=== PATIENT | male | born 1980 | race Caucasian/White ===

== ENCOUNTER 2025-01-31 09:34 | Observation (INO) | payer OTHER, BC, SELFPAY ==
[2025-01-31] VITALS (8 sets, daily range): BP systolic 115–156; BP diastolic 06–106; PULSE 62–76; RESP 13–17; TEMP 36.8–37.1; O2SAT 95–100; BMI 22.2; BMI 21.9
--- NOTE | 2025-01-31 10:28 | RAD_ITS ---
PROCEDURE: CHEST PA AND LATERAL 01/31/2025 REASON FOR EXAM: CHEST PAIN TECHNIQUE: Three-view CHEST PA AND LATERAL COMPARISON: None. RAD/Chest PA and Lateral IMPRESSION: Mild thoracic spine degenerative changes are noted. Biapical pleural-parenchymal scarring is noted. Lungs are moderately hyperinflated. No evidence of pulmonary edema. No acute pneumonic process is seen. No pleural effusion or pneumothorax is noted. The cardiomediastinal silhouette is within the normal range. No evidence of acute cardiopulmonary disease. Reading Location: [place] [address]
--- NOTE | 2025-01-31 10:28 | RAD_ITS ---
PROCEDURE: CHEST PA AND LATERAL 01/31/2025 REASON FOR EXAM: CHEST PAIN TECHNIQUE: Three-view CHEST PA AND LATERAL COMPARISON: None. RAD/Chest PA and Lateral IMPRESSION: Mild thoracic spine degenerative changes are noted. Biapical pleural-parenchymal scarring is noted. Lungs are moderately hyperinflated. No evidence of pulmonary edema. No acute pneumonic process is seen. No pleural effusion or pneumothorax is noted. The cardiomediastinal silhouette is within the normal range. No evidence of acute cardiopulmonary disease. Reading Location: [place] [address]
--- NOTE | 2025-01-31 10:28 | EKG12_ITS ---
Test Reason : CP Blood Pressure : */* mmHG Vent. Rate : 78 BPM Atrial Rate : 78 BPM P-R Int : 130 ms QRS Dur : 96 ms QT Int : 374 ms P-R-T Axes : 76 59 65 degrees QTcB Int : 426 ms Normal sinus rhythm Normal ECG Confirmed by LENIN PEREZ, AIDEE ([id number]), international editorial producer MARLON ROONEY ([id number]) on 02/04/2025 8:18:21 AM Referred By: YARELI Confirmed By: AIDEE PHELPS MD
--- NOTE | 2025-01-31 10:28 | EKG12_ITS ---
Test Reason : CP Blood Pressure : */* mmHG Vent. Rate : 78 BPM Atrial Rate : 78 BPM P-R Int : 130 ms QRS Dur : 96 ms QT Int : 374 ms P-R-T Axes : 76 59 65 degrees QTcB Int : 426 ms Normal sinus rhythm Normal ECG Confirmed by LENIN PEREZ, AIDEE ([id number]), avid editor MARLON ROONEY ([id number]) on 02/04/2025 8:18:21 AM Referred By: YARELI Confirmed By: AIDEE PHELPS MD
--- NOTE | 2025-01-31 10:57 | ED.VIS.CHEST ---
HPI History of Present Illness Chief Complaint: Chest Pain Narrative Narrative: Chief complaint and HPI: Chest pain. 44-year-old male with no significant past medical history although has not seen a physician in years presents for evaluation of chest pain. 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 Associated symptom was nausea. Patient states that the arm pain/numbness has improved however he still endorses some mild chest pressure. He has a family history of IN with his dad having an IN in his 50s. Tobacco abuser. Denies any shortness of breath, bilateral lower extremity swelling or pain. Review of systems: See HPI Medications: As listed on the chart Allergies: As listed on the chart PFSH: Per chart Vital signs: As listed on the chart. Reviewed. Physical exam: Gen: A&O x3, NAD Head: Normocephalic, atraumatic Eyes: No sclera icterus, conjunctiva clear ENT: Moist mucous membranes Neck: Trachea midline, No JVD CV: RRR, no murmurs, no peripheral edema, radial pulses +2 bilaterally Resp: Lungs CTA BL, no w/r/c GI: Abd soft, non-distended, non-tender, no r/r/g Musc: Full ROM, no deformity Skin: Warm, dry Neuro: Alert, oriented, grossly intact, sensation intact Psych: Cooperative, appropriate mood and affect [facility] Medical History (Updated 01/31/25 @ 09:49 by Mackenzie Anton) History of ankle fracture Home Medications ?Medication ?Instructions ?Recorded ?Last Taken ?Type NK 01/31/25 Unknown History Allergy/AdvReac Type Severity Reaction Status Date / Time Penicillins Allergy Rash Verified 01/31/25 09:36 Social History Smoking Status: Current every day smoker tobacco type: cigarettes EXAM Physical Exam Const Vital Signs: 01/31/25 09:35 01/31/25 09:50 01/31/25 10:34 Temperature 98.6 F Temperature Source Oral Pulse Rate 76 71 Respiratory Rate 16 14 Respiratory Effort Normal Non-Labored Blood Pressure 156/92 H 140/94 H Blood Pressure Mean 113 109 Pulse Ox 100 95 Oxygen Delivery Method Room Air Room Air 01/31/25 11:00 01/31/25 12:00 01/31/25 13:00 Temperature Temperature Source Pulse Rate 63 62 75 Respiratory Rate 13 Respiratory Effort Blood Pressure 140/94 H 148/06 H 148/106 H Blood Pressure Mean 109 53 120 Pulse Ox Oxygen Delivery Method MDM MDM MDM Narrative Medical decision making narrative: 44-year-old male with no significant past medical history although has not seen a physician in years presents for evaluation of chest pain. Differential diagnosis includes but is not limited to ACS, hypertension urgency, hypertension emergency, suspect less likely CHF. Aspirin ordered for symptoms. Cardiac workup ordered. EKG and chest x-ray reviewed see below. CBC without leukocytosis or anemia. Coagulation panel unremarkable. BMP unremarkable. BNP unremarkable. Troponin x 2 unremarkable. On reevaluation, patient states his chest pain has improved. Patient's heart score is a 4 which places him in the moderate category for ACS. Given his family history as well as his presentation, I do think feel that the patient would benefit from admission for inpatient stress test. Patient was updated about the results and the plan. He confirmed understanding. Hospitalist accept admission. EKG: Interpreted by me/EM physician: EKG shows normal sinus rhythm without any acute ischemic changes. Heart rate 78 Diagnostic: Interpreted by me/EM physician: Chest x-ray without pneumonia, effusion, cardiomegaly, pneumothorax. Radiology in agreement. Impression: 1. Chest pain 2. Hypertension 3. Tobacco use Lab Data Labs: Laboratory Results - last 24 hr 01/31/25 01/31/25 09:47 12:35 WBC 8.2 RBC 4.95 Hgb 15.3 Hct 44.4 MCV 89.7 MCH 30.9 MCHC 34.5 RDW Std Deviation 45.1 H RDW Coeff of Brandi 13.7 Plt Count 230 MPV 10.4 Immature Gran % (Auto) 0.100 Neut % (Auto) 50.4 Lymph % (Auto) 36.5 [place] % (Auto) 9.4 Eos % (Auto) 2.7 Baso % (Auto) 0.9 Absolute Neuts (auto) 4.2 Absolute Lymphs (auto) 3.00 Nucleated RBC % 0 PT 12.5 INR 0.9 APTT 26.9 Sodium 140 Potassium 3.7 Chloride 103 Carbon Dioxide 23.8 Anion Gap 13 BUN 7 Creatinine 0.82 Estim Creat Clear Calc 116.41 Est GFR (MDRD) Non-Af 110 BUN/Creatinine Ratio 8.8 L Glucose 76 Calcium 9.0 Troponin T High Sens 10 Troponin T Hi Sens 2 Hr < 6 NT pro BNP II < 36 Radiography Diagnostic Testing: Clinical Impression(s) from Imaging Studies Chest X-Ray 01/31/25 10:28 IMPRESSION: Mild thoracic spine degenerative changes are noted. Biapical pleural-parenchymal scarring is noted. Lungs are moderately hyperinflated. No evidence of pulmonary edema. No acute pneumonic process is seen. No pleural effusion or pneumothorax is noted. The cardiomediastinal silhouette is within the normal range. No evidence of acute cardiopulmonary disease. Reading Location: [place] [address] Discharge Plan Triage Chief Complaint: Chest Pain ED Provider: Mundo Lemus Dx/Rx/DC Orders Prescriptions: No Action NK Primary Care Provider: Care Physician,No Primary Referrals: Care Physician,No Primary [Primary Care Provider] - Print Language: Guamanian
[2025-01-31 11:03] LABS: Hematocrit 44.4 % (40-54); Hemoglobin 15.3 g/dL (13.0-16.5); Immature Granulocytes Count 0.010 X10^3/uL (0.0-0.0); Mean Corp Hgb Conc 34.5 g/dL (32-36); Mean Corpuscular Volume 89.7 fL (80-94); Mean Platelet Vol. 10.4 fl (6.2-12.0); NRBC Flagged by Analyzer 0 % (0-5); Platelet Count 230 K/mm3 (150-450); RBC Distribution Width CV 13.7 % (11.6-14.6); RBC Distribution Width SD 45.1 fl (35.1-43.9); Red Blood Count 4.95 M/mm3 (4.6-6.2); White Blood Count 8.2 K/mm3 (4.4-11.0)
[2025-01-31 11:05] LABS: Prothrombin Time (Protime)PT. 12.5 SECONDS (11.7-14.9)
[2025-01-31 11:06] LABS: Partial Thromboplast Time 26.9 Seconds (24.1-36.2)
[2025-01-31 11:28] LABS: Anion Gap 13 (5-15); BUN 7 mg/dL (4-19); BUN/Creat Ratio 8.8 RATIO (10-20); Calcium,Total 9.0 mg/dL (7.6-11.0); Carbon Dioxide 23.8 mmol/L (21.0-32.0); Chloride 103 mmol/L (98-108); Estimated Creatinine Clearance 116.41 ml/min (50-250); Glucose 76 mg/dL (70-99); Potassium 3.7 mmol/L (3.3-5.1)
[2025-01-31 11:31] LABS: Pro- Brain NATRIURETIC PEPTIDE < 36 pg/mL (<=450); Troponin T High Sensitivity 10 ng/L (<=22)
--- NOTE | 2025-01-31 13:00 | CM.ED ---
Social work Reason for referral: no PCP Referral source: case find This SW entered patient's room, introducing self and role at [facility]. Patient welcomed SW visit and confirmed lacking a PCP due to never getting sick. Patient accepted SW resources of [facility] Provider Directory and Myah Meza information. Patient denied need for further resources at this time. Didi Merchant, FLY FRAME TENDER, VOCATIONAL TEACHER
--- NOTE | 2025-01-31 13:00 | CM.ED ---
Social work Reason for referral: no PCP Referral source: case find This SW entered patient's room, introducing self and role at [facility]. Patient welcomed SW visit and confirmed lacking a PCP due to never getting sick. Patient accepted SW resources of [facility] Provider Directory and Myah Meza information. Patient denied need for further resources at this time. Didi Merchant, PRACTICAL NURSE CLINICAL COORDINATOR, CANCER PROGRAM CONSULTANT
[2025-01-31 13:29] LABS: Troponin T High Sens 2 HR < 6 ng/L (<=22)
--- NOTE | 2025-01-31 14:14 | HP.PCM.HOS_ITS ---
HPI - General General Date of Admission: 01/31/25 Date of Service: 01/31/25 Chief Complaint: Chest pain HPI Narrative JANIYA BETANCUR, is a 44 M who presented to [facility] ED on 01/31/2025 with chest pain. Patient has minimal past medical history, takes no medications at home. However, notes that he has not seen a doctor in years. He has had chest pain off and on for the past few weeks. Pain is in left chest with intermittent radiation to the left arm. Does seem to worsen with exertion and get better with rest. 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 Had associated nausea with this. Given the symptoms, he came in for further evaluation. He is a current smoker, smokes 1 to 1.5 packs of cigarettes per day. 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 Does have family history of heart disease. Dad had an PA in his 50s. Mom has had stenting done in her 60s and 70s. In the ED he was hypertensive to the 150s systolic but otherwise in normal sinus rhythm and stable on room air at rest. CBC and BMP were benign. Troponins negative x 2. BNP normal. EKG with normal sinus rhythm with no ST changes. Chest x-ray unremarkable. However, given patient's reported history of the pain and family history, hospitalist was contacted for admission. I saw the patient at bedside in the ED. Patient was sitting back comfortably in bed, conversing normally, in no acute distress. He reported mild left-sided pain currently, improved from earlier today. He was given 1 dose of aspirin 325 mg in the ED but was not given any nitro. He denies any numbness/tingling down the left arm currently. Denies any other acute concerns at this time. Will be admitted for further management. [facility] Medical History (Updated 01/31/25 @ 19:[address] Jacky Montelongo DO) History of ankle fracture Home Medications ?Medication ?Instructions ?Recorded ?Last Taken ?Type NK 01/31/25 Unknown History Allergy/AdvReac Type Severity Reaction Status Date / Time Penicillins Allergy Rash Verified 01/31/25 09:36 Social History (Updated 01/31/25 @ 15:57 by Eduarda Bowers) Smoking Status: Current every day smoker tobacco type: cigarettes ROS Constitutional Constitutional: Denies chills, fatigue, fever(s) or weakness Eyes Eyes: Denies change in vision Cardiovascular Cardiovascular: Reports chest pain; Denies dyspnea on exertion, edema, lightheadedness or rapid heart rate Respiratory/Chest Respiratory/Chest: Denies cough, shortness of breath at rest, shortness of breath with exertion or wheezing Gastrointestinal Gastrointestinal: Denies abdominal pain Musculoskeletal Musculoskeletal: Denies arthralgias or myalgias Neurologic Neurologic: Denies dizziness, focal weakness or headache(s) Vital Signs Vital Signs Vital Signs: 01/31/25 09:35 01/31/25 09:50 01/31/25 10:34 Temperature 98.6 F Temperature Source Oral Pulse Rate 76 71 Respiratory Rate 16 14 Respiratory Effort Normal Non-Labored Blood Pressure 156/92 H 140/94 H Blood Pressure Mean 113 109 Pulse Ox 100 95 Oxygen Delivery Method Room Air Room Air 01/31/25 11:00 01/31/25 12:00 01/31/25 13:00 Temperature Temperature Source Pulse Rate 63 62 75 Respiratory Rate 13 Respiratory Effort Blood Pressure 140/94 H 148/06 H 148/106 H Blood Pressure Mean 109 53 120 Pulse Ox Oxygen Delivery Method Weight Weight: 72.348 kg Body Mass Index (BMI) 22.2 Physical Exam Const alert, oriented x3, no apparent distress and average body habitus Constitutional Narrative: Pleasant middle-age male, sitting back comfortably in bed, conversing normally, in no acute distress. General Appearance: cooperative and comfortable HEENT normocephalic, head/scalp atraumatic, hearing grossly normal bilaterally, nasal mucous membranes and turbinates normal and moist oral mucous membranes Eyes PERRL, EOMs intact bilaterally and conjunctivae normal Neck full ROM Chest inspection of chest normal Resp normal respiratory effort, normal air movement, no use of accessory muscles and clear to auscultation bilaterally Cardio regular rate, regular rhythm, no murmurs and peripheral pulses 2+ throughout GI normal to inspection, nondistended, normoactive bowel sounds, soft to palpation, non-tender and non-distended Back/Spine normal ROM Extremity normal to inspection, full ROM and no pedal edema Skin no rashes or lesions noted Psych mental status grossly normal Results Lab / Micro Data 01/31/25 09:47 01/31/25 09:47 Labs: Laboratory Results - last 24 hr 01/31/25 09:47: WBC 8.2, RBC 4.95, Hgb 15.3, Hct 44.4, MCV 89.7, MCH 30.9, MCHC 34.5, RDW Std Deviation 45.1 H, RDW Coeff of Brandi 13.7, Plt Count 230, MPV 10.4, Immature Gran % (Auto) 0.100, Neut % (Auto) 50.4, Lymph % (Auto) 36.5, [place] % (Auto) 9.4, Eos % (Auto) 2.7, Baso % (Auto) 0.9, Absolute Neuts (auto) 4.2, Absolute Lymphs (auto) 3.00, Nucleated RBC % 0, PT 12.5, INR 0.9, APTT 26.9, Sodium 140, Potassium 3.7, Chloride 103, Carbon Dioxide 23.8, Anion Gap 13, BUN 7, Creatinine 0.82, Estim Creat Clear Calc 116.41, Est GFR (MDRD) Non-Af 110, B UN/Creatinine Ratio 8.8 L, Glucose 76, Calcium 9.0, Troponin T High Sens 10, NT pro BNP II < 36 01/31/25 12:35: Troponin T Hi Sens 2 Hr < 6 Imaging Radiology Impression Chest X-Ray 01/31/25 10:28 IMPRESSION: Mild thoracic spine degenerative changes are noted. Biapical pleural-parenchymal scarring is noted. Lungs are moderately hyperinflated. No evidence of pulmonary edema. No acute pneumonic process is seen. No pleural effusion or pneumothorax is noted. The cardiomediastinal silhouette is within the normal range. No evidence of acute cardiopulmonary disease. Reading Location: [facility] Assessment & Plan Assessment/Plan (1) Chest pain: PLAN: Plan Patient is a 44-year-old male who presented to [facility] ED on 01/31/2025 with chest pain. 1. Chest pain, ACS rule out ? Admit under observation status to PCU. Presented with chest pain with radiation down left arm and into left neck. Intermittent chest pain for the past 2 weeks. Workup in ED negative including troponins negative x 2, EKG with normal sinus rhythm and no ST changes, BNP normal, chest x-ray normal. However, current tobacco user as below and strong family history of heart disease. Nuclear stress test and echocardiogram ordered. Lipid profile, A1c and TSH ordered. Continue cardiac telemetry. 2. Tobacco dependence ? Smokes 1 to 1.5 packs of cigarettes daily. Nicotine patch ordered per patient request. Discussed cessation on discharge. 3. Elevated BP readings ? Hypertensive to the 150s over 100s in the ED. Suspect patient has essential hypertension that has been undiagnosed as he does not follow with doctors regularly. Will initiate amlodipine 5 mg daily for now, though suspect he may need switched to beta-xi and/or ALF inhibitor pending cardiac workup as above. Monitor BMP. DVT prophylaxis: Lovenox CODE STATUS: Full code, verified Expected disposition: Home, 1 to 2 days Total clinical time spent by myself addressing the patient's medical issues, reviewing all the data, and collaborating with patient's care team: 75 minutes. Charges/Coding Visit Charges Inpatient E&M: 96216 Init Hosp L3
[2025-01-31 18:19] LABS: Troponin T High Sensitivity < 6 ng/L (<=22)
--- OUTSIDE RECORDS SUMMARY | 2025-01-31 18:31 | XMS RPT_ITS | CCD ---
Author Organization [facility] Care Team Providers Care Traffic Analysis Technician Name Role Phone Care Physician, No Primary Primary Care Provider Unavailable Dr. Mundo Lemus DO Emergency Provider Dr. Jacky Montelongo DO Admit Provider Dr. Jacky Montelongo DO Attending Provider Allergies Allergy Classification Reported Allergen(s) Allergy Type Date of Onset Reaction(s) Facility (1 source) Penicillins Allergy to substance 01-31-[address] [facility] Medications Current Medications Medication Drug Class(es) Dates Sig (Normalized) Sig (Original) [place] (Nk) (1 source) Start: 01-31-2025 [place] (Nk) A ctive January 31, 2025 12:00am Completed/Discontinued Medications Medication Drug Class(es) Dates Sig (Normalized) Sig (Original) cyclobenzaprine hydrochloride 10 mg oral tablet (1 source) Muscle Relaxant Start: 05-21-2016 End: 01-31-2025 take 1 tablet by mouth three times daily as needed for muscle spasms Cyclobenzaprine 10 MG tablet Discontinued 10 mg PO THREE TIMES A DAY as needed for Muscle Spasm 20 May 21, 2016 1:00am January 31, 2025 9:50am naproxen 500 mg oral tablet (1 source) Nonsteroidal Anti-inflammatory Drug Start: 05-21-2016 End: 01-31-2025 take 1 tablet by mouth twice daily as needed Naproxen 500 MG tablet Discontinued 500 mg PO TWICE DAILY NEEDED May 21, 2016 1:00am January 31, 2025 9:50am Results Test Name Value Interpretation Reference Range Facility Absolute lymphocyte countOrd ered By: Mundo Lemus on 01-31-2025 Lymphocytes Auto (Unsp spec) [#/Vol] 3.00 10*3/uL 0.83-4.51 [facility] Absolute neutrophil countOrd ered By: Mundo Lemus on 01-31-2025 Neutrophils (Bld) [#/Vol] 4.2 10*3/uL 2.0-7.7 [facility] Activated partial thrombopla stin time (aPTT) in platelet poor plasma by coagulation aOrdered By: Mundo Lemus on 01-31-2025 aPTT Coag (PPP) [Time] 26.9 s 24.1-36.2 [facility] Anion gap in Serum or Plasma Ordered By: Mundo Lemus on 01-31-2025 Anion gap [Moles/Vol] 13 mmol/L 5-15 [facility] Automated lymphocyte count a s percentage of total leukocytesOrdered By: Mundo Lemus on 01-31-2025 Lymphocytes/100 WBC Auto (Unsp spec) 36.5 % 19-41 [facility] BUN/creatinine ratioOrdered By: Mundo Lemus on 01-31-2025 Urea nitrogen/Creatinine [Mass ratio] 8.8 mg/mg Low 10-20 [facility] Basophil percentageOrdered B y: Mundo Lemus on 01-31-2025 Basophils/100 WBC (Bld) 0.9 % 0-1 [facility] Carbon dioxide, total [Moles /volume] in Central venous bloodOrdered By: Mundo Lemus on 01-31-2025 CO2 [Moles/Vol] 23.8 mmol/L 21.0-32.0 [facility] Chloride assayOrdered By: Eric Lemus on 01-31-2025 Chloride [Moles/Vol] 103 mmol/L 98-108 [facility] Eosinophil percentageOrdered By: Mundo Lemus on 01-31-2025 Eosinophils/100 WBC (Bld) 2.7 % 0-5 [facility] Erythrocyte distribution wid th ratioOrdered By: Mundo Lemus on 01-31-2025 Erythrocyte distribution width (RBC) [Ratio] 13.7 % 11.6-14.6 [facility] Erythrocyte distribution wid th standard deviationOrdered By: Mundodonell Farfan on 01-31-2025 Erythrocyte distribution width (RBC) [Ratio] 45.1 fl High 35.1-43.9 [facility] Glomerular filtration rate ( GFR) estimation/1.73 sq m using serum, plasma, or whole bOrdered By: Mundodonell Lemus on 01-31-2025 GFR/1.73 sq M.predicted among non-blacks MDRD (S/P/Bld) [Vol rate/Area] 110 mL/min/{1.73_m2} >60 [facility] Comment on above: mL/min/1.73m2 CKD-EP I Creatinine Equation (2020) Hematocrit Auto (Bld) [Volum e fraction]Ordered By: Mundodonell Lemus on 01-31-2025 Hematocrit (Bld) [Volume fraction] 44.4 % 40-54 [facility] Hemoglobin measurementOrdere d By: Mundo Lemus on 01-31-2025 Hemoglobin (Bld) [Mass/Vol] 15.3 g/dL 13.0-16.5 [facility] Immature granulocytes/100 WB C Auto (Bld)Ordered By: [place] Mariah on 01-31-2025 Immature granulocytes/100 WBC (Bld) 0.100 % 0.0-0.9 [facility] Comment on above: IG% - Immature Granu locytes (promyelocytes, myelocytes and metamyelocytes) > 1% indicates that a LEFT SHIFT is Present. International normalized rat io (INR) calculationOrdered By: Mundodonell Lemus on 01-31-2025 INR Coag (Bld) [Relative time] 0.9 {INR} [facility] MCV (mean corpuscular volume ) determinationOrdered By: Mundo Mariah on 01-31-2025 MCV (RBC) [Entitic vol] 89.7 fL 80-94 [facility] Mean corpuscular hemoglobin (MCH) determinationOrdered By: [facility] 01-31-2025 MCH (RBC) [Entitic mass] 30.9 pg 27.0-32.0 [facility] Mean corpuscular hemoglobin concentration (MCHC) determinationOrdered By: Mundo Lemus on 01-31-2025 MCHC (RBC) [Mass/Vol] 34.5 g/dL 32-36 [facility] Mean platelet volume determi nationOrdered By: Mundo Lemus on 01-31-2025 Platelet mean volume (Bld) [Entitic vol] 10.4 fL 6.2-12.0 [facility] Monocyte percentageOrdered B y: Mundo Lemus on 01-31-2025 Monocytes/100 WBC (Bld) 9.4 % 0-10 [facility] Natriuretic peptide.B prohor janice N-Terminal [Mass/volume] in Serum or PlasmaOrdered By: Mundo Lemus on 01-31-2025 Natriuretic peptide.B prohormone N-Terminal [Mass/Vol] < 36 pg/mL <450 [facility] Comment on above: Heart Failure Unlike ly: < 300 pg/mLHeart Failure Likely< 50 Years: > 450 pg/mL50-75 Years: > 900 pg/mL>75 Years: > 1800 pg/mL Neutrophil percentageOrdered By: Mundo Lemus on 01-31-2025 Neutrophils/100 WBC (Bld) 50.4 % 47-70 [facility] Nucleated red blood cell per centageOrdered By: Mundo Lemus on 01-31-2025 Nucleated RBC/100 WBC (Bld) [Ratio] 0 % 0-5 [facility] Platelet countOrdered By: Eric Lemus on 01-31-2025 Platelets (Bld) [#/Vol] 230 10*3/uL 150-450 [facility] Potassium measurement (mass/ volume)Ordered By: Mundo Lemus on 01-31-2025 Potassium (Unsp spec) [Mass/Vol] 3.7 mmol/L 3.3-5.1 [facility] Prothrombin timeOrdered By: Mundo Lemus on 01-31-2025 PT Coag (PPP) [Time] 12.5 s 11.7-14.9 [facility] RBC Auto (Bld) [#/Vol]Ordere d By: Mundo Lemus on 01-31-2025 RBC (Bld) [#/Vol] 4.95 10*6/uL 4.6-6.2 [facility] Serum creatinine measurement (mass/volume)Ordered By: Mundo Lemus on 01-31-2025 Creatinine [Mass/Vol] 0.82 mg/dL 0.70-1.20 [facility] Serum glucose measurement (m ass/volume)Ordered By: Mundo Lemus on 01-31-2025 Glucose [Mass/Vol] 76 mg/dL 70-99 [facility] Serum or plasma calcium gómez urement (mass/volume)Ordered By: Mundo Farfan on 01-31-2025 Calcium [Mass/Vol] 9.0 mg/dL 7.6-11.0 [facility] Serum or plasma urea nitroge n measurement (mass/volume)Ordered By: Mundo Lemus on 01-31-2025 Urea nitrogen [Mass/Vol] 7 mg/dL 4-19 [facility] Sodium levelOrdered By: Dom Lemus on 01-31-2025 Sodium [Moles/Vol] 140 mmol/L 133-145 [facility] Troponin T.cardiac [Mass/vol ume] in Serum or Plasma by High sensitivity methodOrdered By: Mundo Lemus on 01-31-2025 Troponin T.cardiac High sensitivity method [Mass/Vol] < 6 ng/L <22 [facility] Troponin T.cardiac High sensitivity method [Mass/Vol] 10 ng/L <22 [facility] White blood cell (WBC) count Ordered By: Mundo Lemus on 01-31-2025 WBC (Bld) [#/Vol] 8.2 10*3/uL 4.4-11.0 [facility] CNOVon 07-24-2019 CNOV Office Visit ([facility]) ---- BETANCURJANIYA ([id number]) 1980 M Date Time Provider Department 07/24/19 9:00 AM JUDITH MEDINA) [facility] During your visit today, we recorded the following information about you: Temperature Pulse Respiration Blood pressure 97.9 degrees 81/minute 16/minute 138/82 Weight 77.6 kg Judith Medina PA-C 07/24/2019 11:15 AM Signed Subjective HPI Patient presents with cough and right rib pain. He certain coughing for about a month and then the past week his right posterior rib area has been bothering him when he coughs or moves. Denies shortness of breath. His cough is nonproductive. No fevers or chills. No body aches. He has a smoker about a half a pack a day over the past 20 years. Denies asthma or COPD. No history of PE or DVT. No leg pain or swelling. No recent travel or surgeries. Review of Systems Constitutional: Negative. HENT: Negative. Eyes: Negative. Respiratory: Positive for cough. Negative for hemoptysis, sputum production and shortness of breath. Cardiovascular: Negative. Gastrointestinal: Negative. Genitourinary: Negative. Musculoskeletal: Positive for back pain. Skin: Negative. All other systems reviewed and are negative. PAST MEDICAL HISTORY Diagnosis Date - NEGATIVE MEDICAL HISTORY Current Outpatient Medications Medication Sig Dispense Refill - predniSONE (DELTASONE) 20 mg tablet Take 2 tablets by mouth once daily for 5 days. 10 tablet 0 - benzonatate (TESSALON PERLES) 100 mg capsule Take 2 capsules by mouth three times daily as needed. 30 capsule 0 - ustekinumab (STELARA SUBCUTANEOUS) Inject subcutaneously. - HYDROCODONE-ACETAMI NOPHEN 5 MG-500 MG TAB Take one(1) tablet every four(4) to six(6) hours as needed for pain. (Patient not taking: No more than 4000 mg of acetaminophen should be given per day (FROM ALL SOURCES) ) 30 0 No current facility-administer ed medications for this visit. PAST SURGICAL HISTORY Procedure Laterality Date - NONE FAMILY HISTORY Problem Relation Age of Onset - other (bronchitis [Other]) Mother - Heart Father September 2003 of [place] Social History Tobacco Use - Smoking status: Current Every Day Smoker Packs/day: 0.50 Years: 10.00 Pack years: 5.00 Types: Cigarettes - Smokeless tobacco: Never Used Substance Use Topics - Alcohol use: Yes Comment: Weekends - Drug use: No BP 138/82 Pulse 81 Temp 36.6 ?C (97.9 ?F) (Left Tympanic) Resp 16 Wt 77.6 kg (171 lb) SpO2 99% Objective Physical Exam Constitutional: He is well-developed, well-nourished, and in no distress. HENT: Head: Normocephalic and atraumatic. Right Ear: Tympanic membrane, external ear and ear canal normal. Left Ear: External ear and ear canal normal. Nose: Nose normal. Mouth/Throat: Uvula is midline, oropharynx is clear and moist and mucous membranes are normal. Cardiovascular: Normal rate, regular rhythm and normal heart sounds. Pulmonary/Chest: Effort normal and breath sounds normal. Mild tenderness in the right posterior ribs. No rash. No swelling or bruising. Neurological: He is alert. Skin: Skin is warm and dry. No rash noted. Nursing note and vitals reviewed. ASSESSMENT/PLAN: 1. Rib pain - ICD9: 786.50, ICD10: R07.81 (primary diagnosis) - XR RIBS/CHEST 3V AP RIB/OBLS/CXR RT 2. Bronchitis - ICD9: 490, ICD10: J40 Patient's chest x-ray is negative. I feel he does have bronchitis likely with some pleurisy. Given prednisone and Tessalon. Discussed if not better over the next 1-2 weeks follow-up with PCP. Judith Medina PA-C Referring Provider: SELF [200] Allergies As of Date: 07/24/2019 Noted Allergy Reaction ASA (SALICYLATES) 01/17/2007 PENICILLINS 01/26/2016 4 - Hives Date Reviewed: 07/24/2019 Reviewed by: Nemo Marcano Ma - Fully Assessed Reason for Visit: URI [115] Cmt: x 1 month with RIGHT side rib area pain x 1 week with intermittent SOB Primary Visit Diagnosis:Rib pain [R07.81] Other Visit Diagnosis:Bronchiti s [J40] Order(s):XR RIBS/CHEST 3V AP RIB/OBLS/CXR RT [[id number]] Order #: [id number] FUTURE predniSONE (DELTASONE) 20 mg tabletTake 2 tablets by mouth once daily for 5 days.Disp: 10 tabletRfl: 0 benzonatate (TESSALON PERLES) 100 mg capsuleTake 2 capsules by mouth three times daily as needed.Disp: 30 capsuleRfl: 0 Prescriptions as of 07/24/2019 Sig: PREDNISONE 20 MG TABLET Take 2 tablets by mouth once * BENZONATATE 100 MG CAPSULE Take 2 capsules by mouth thre* STELARA SUBCUTANEOUS Inject subcutaneously. HYDROCODONE 5 MG-ACETAMINOPHE* Take one(1) tablet every four* Patient not taking: No more than 4000 mg of aceta* Problem List As Of Date 07/24/2019 Noted Resolved LUMBAGO [M54.5] 01/17/2007 Prescriptions ordered this encounter Disp Refills Start End PREDNISONE 20 MG TABLET 10 t* 0 07/24/2019 07/29/2019 Route: ORAL Sig: Take 2 tablets by mouth once daily for 5 days. BENZONATATE 100 MG CAPSULE 30 c* 0 07/24/2019 Route: ORAL Sig: Take 2 capsules by mouth three times daily as needed. Letter Text Encounter Status:Closed by JUDITH MEDINA PA-C on 07/24/19 Normal [facility] PROGRESSon 07-24-2019 PROGRESS HNO ID: [id number] Author: Judith Medina (Pa) Service: ? Author Type: Physician Risk Control Manager Type: Progress Notes Filed: 07/24/2019 11:15 AM Note Text: Subjective HPI Patient presents with cough and right rib pain. He certain coughing for about a month and then the past week his right posterior rib area has been bothering him when he coughs or moves. Denies shortness of breath. His cough is nonproductive. No fevers or chills. No body aches. He has a smoker about a half a pack a day over the past 20 years. Denies asthma or COPD. No history of PE or DVT. No leg pain or swelling. No recent travel or surgeries. Review of Systems Constitutional: Negative. HENT: Negative. Eyes: Negative. Respiratory: Positive for cough. Negative for hemoptysis, sputum production and shortness of breath. Cardiovascular: Negative. Gastrointestinal: Negative. Genitourinary: Negative. Musculoskeletal: Positive for back pain. Skin: Negative. All other systems reviewed and are negative. PAST MEDICAL HISTORY Diagnosis Date - NEGATIVE MEDICAL HISTORY Current Outpatient Medications Medication Sig Dispense Refill - predniSONE (DELTASONE) 20 mg tablet Take 2 tablets by mouth once daily for 5 days. 10 tablet 0 - benzonatate (TESSALON PERLES) 100 mg capsule Take 2 capsules by mouth three times daily as needed. 30 capsule 0 - ustekinumab (STELARA SUBCUTANEOUS) Inject subcutaneously. - HYDROCODONE-ACETAMI NOPHEN 5 MG-500 MG TAB Take one(1) tablet every four(4) to six(6) hours as needed for pain. (Patient not taking: No more than 4000 mg of acetaminophen should be given per day (FROM ALL SOURCES) ) 30 0 No current facility-administer ed medications for this visit. PAST SURGICAL HISTORY Procedure Laterality Date - NONE FAMILY HISTORY Problem Relation Age of Onset - other (bronchitis [Other]) Mother - Heart Father September 2003 of [place] Social History Tobacco Use - Smoking status: Current Every Day Smoker Packs/day: 0.50 Years: 10.00 Pack years: 5.00 Types: Cigarettes - Smokeless tobacco: Never Used Substance Use Topics - Alcohol use: Yes Comment: Weekends - Drug use: No BP 138/82 Pulse 81 Temp 36.6 ?C (97.9 ?F) (Left Tympanic) Resp 16 Wt 77.6 kg (171 lb) SpO2 99% Objective Physical Exam Constitutional: He is well-developed, well-nourished, and in no distress. HENT: Head: Normocephalic and atraumatic. Right Ear: Tympanic membrane, external ear and ear canal normal. Left Ear: External ear and ear canal normal. Nose: Nose normal. Mouth/Throat: Uvula is midline, oropharynx is clear and moist and mucous membranes are normal. Cardiovascular: Normal rate, regular rhythm and normal heart sounds. Pulmonary/Chest: Effort normal and breath sounds normal. Mild tenderness in the right posterior ribs. No rash. No swelling or bruising. Neurological: He is alert. Skin: Skin is warm and dry. No rash noted. Nursing note and vitals reviewed. ASSESSMENT/PLAN: 1. Rib pain - ICD9: 786.50, ICD10: R07.81 (primary diagnosis) - XR RIBS/CHEST 3V AP RIB/OBLS/CXR RT 2. Bronchitis - ICD9: 490, ICD10: J40 Patient's chest x-ray is negative. I feel he does have bronchitis likely with some pleurisy. Given prednisone and Tessalon. Discussed if not better over the next 1-2 weeks follow-up with PCP. Judith Medina PA-C Normal [facility] PROGRESS HNO ID: [id number] Author: Nimo Gonzalez (Rt) Kamron Sanchez Service: ? Author Type: Generator Technician Type: Progress Notes Filed: 07/24/2019 9:52 AM Note Text: Radiology Service Progress Note PATIENT NAME: Janiya Betancur DATE OF SERVICE: July 24, 2019 TIME: 9:41 AM PATIENT IDENTITY VERIFICATION COMPLETED USING TWO (2) IDENTIFIERS: Name and Date of confirmed by patient verbally. PATIENT GENDER DATA: Male PATIENT RELEVANT IMPLANT DATA REVIEWED: Not Applicable RADIOLOGY DEPARTMENT: General X-ray: Exam(s) Completed: Rib X-Ray: Right PERIPHERAL IV DATA: Not applicable SIGNED BY: RT Madison July 24, 2019 9:41 AM Normal [facility] XR RIB/CHST 3V AP RIB/OBL/CH ST Jamshid 07-24-2019 XR RIB/CHST 3V AP RIB/OBL/CHST R * * *Final Report* * * DATE OF EXAM: Jul 24 2019 9:53AM WOX [id number] - XR RIB/CHST 3V AP RIB/OBL/CHST R / PROCEDURE REASON: Rib pain * * * * Physician Interpretation * * * * EXAMINATION: XR RIB/CHST 3V AP RIB/OBL/CHST R HISTORY: pt states pain for a week posterior lower right rib area marked by a bb and cough and congestion for a month no inj Rib pain . TECHNIQUE: XR RIB/CHST 3V AP RIB/OBL/CHST R Laterality: RIGHT Number of different views (projections): 3 M: XB_1 COMPARISON: There are no prior studies for comparison RESULT: Frontal radiograph of the chest and dedicated views of the right ribs show no evidence of pneumothorax, hemothorax or pulmonary contusion. The visualized bony structures are intact without apparent displaced or nondisplaced rib fracture. IMPRESSION: Negative ribs. Generator Operator: PSCB Transcribe Date/Time: Jul 24 2019 10:18A Dictated by : CHRISTIANA PERAZA MD This examination was interpreted and the report reviewed and electronically signed by: CHRISTIANA PERAZA MD on Jul 24 2019 10:19AM EST [id number] Normal [facility] CNOVon 03-19-2019 CNOV Office Visit ([facility]) ---- JANIYA BETANCUR ([id number]) 1980 M Date Time Provider Department 03/19/19 11:00 AM MAMADOU AMES ([employer]) [facility] During your visit today, we recorded the following information about you: Temperature Pulse Respiration Blood pressure 97.8 degrees 68/minute 16/minute 128/82 Weight 75.1 kg Mamadou Ames APRN.CNP 03/19/2019 2:48 PM Signed Subjective HPI HPI Janiya Betancur is a 39 year old male who presents today for CC of left ankle pain without injury. This started 3-4 weeks go. Symptoms are worsened by walking. Risk factors hx of surgery to left ankle requiring plates and screws, concerned something has changed. .Patient presents with: left ankle pain: x 3-4 weeks-old injury PAST MEDICAL HISTORY Diagnosis Date - NEGATIVE MEDICAL HISTORY PAST SURGICAL HISTORY Procedure Laterality Date - NONE ALLERGIES Asa [Salicylates]; Penicillins MEDICATIONS ustekinumab (STELARA SUBCUTANEOUS) Inject subcutaneously. HYDROCODONE-ACETAMI NOPHEN 5 MG-500 MG TAB Take one(1) tablet every four(4) to six(6) hours as needed for pain. FAMILY HISTORY Problem Relation Age of Onset - other (bronchitis [Other]) Mother - Heart Father September 2003 of [place] Social History Tobacco Use - Smoking status: Current Every Day Smoker Packs/day: 0.50 Years: 10.00 Pack years: 5.00 Types: Cigarettes - Smokeless tobacco: Never Used Substance Use Topics - Alcohol use: Yes Comment: Weekends - Drug use: No Review of Systems Skin: Negative for itching and rash. Neurological: Negative for tingling. Objective Blood pressure 128/82, pulse 68, temperature 36.6 ?C (97.8 ?F), temperature source Tympanic, resp. rate 16, weight 75.1 kg (165 lb 9.6 oz). Physical Exam Constitutional: He is oriented to person, place, and time and well-developed, well-nourished, and in no distress. Non-toxic appearance. He does not have a sickly appearance. No distress. HENT: Head: Normocephalic and atraumatic. Pulmonary/Chest: Effort normal. No accessory muscle usage. No respiratory distress. Musculoskeletal: Left ankle: He exhibits normal range of motion, no swelling, no ecchymosis, no deformity, no laceration and normal pulse. Tenderness. Lateral malleolus tenderness found. Feet: Neurological: He is alert and oriented to person, place, and time. Skin: He is not diaphoretic. ASSESSMENT/PLAN: 1. Left ankle pain, unspecified chronicity - ICD9: 719.47, ICD10: M25.572 -no bony abnormality noted on xray -Rest, Ice, Compression, Elevation discussed -discussed use of ibuprofen -follow up with primary care/ortho if symptoms persist/worsen in 10-14 days - XR ANKLE GENERAL 3V AP/LAT/OBL LT - Dictated by : LEONILA NICHOLSON MD Impression: 1. ?No acute fracture or dislocation. Mamadou Ames APRN.[employer] Referring Provider: SELF [200] Allergies As of Date: 03/19/2019 Noted Allergy Reaction ASA (SALICYLATES) 01/17/2007 PENICILLINS 01/26/2016 4 - Hives Date Reviewed: 03/19/2019 Reviewed by: Jazmin Arriola LPN - Fully Assessed Reason for Visit: left ankle pain [Other] Cmt: x 3-4 weeks-old injury Primary Visit Diagnosis:Left ankle pain, unspecified chronicity [M25.572] Order(s):XR ANKLE GENERAL 3V AP/LAT/OBL LT [[id number]] Order #: [id number] #:[id number] Prescriptions as of 03/19/2019 Sig: STELARA SUBCUTANEOUS Inject subcutaneously. HYDROCODONE 5 MG-ACETAMINOPHE* Take one(1) tablet every four* Patient not taking: No more than 4000 mg of aceta* Problem List As Of Date 03/19/2019 Noted Resolved LUMBAGO [M54.5] INVALID FOR* Letter Text Letter Text Encounter Status:Closed by MAMADOU AMES CNP on 03/19/19 [facility] PROGRESSon 03-19-2019 PROGRESS HNO ID: [id number] Author: Kendal Dillon Service: ? Author Type: ? Type: Progress Notes Filed: 03/19/2019 11:37 AM Note Text: Radiology Service Progress Note PATIENT NAME: Janiya Betancur DATE OF SERVICE: March 19, 2019 TIME: 11:30 AM PATIENT IDENTITY VERIFICATION COMPLETED USING TWO (2) METHODS: Name and Date of confirmed by patient verbally. PATIENT GENDER DATA: Male PATIENT RELEVANT IMPLANT DATA REVIEWED: Not Applicable RADIOLOGY DEPARTMENT: General X-ray: Exam(s) Completed: Lower Extremity X-Ray(s): Ankle, Left and Wt. Bearing: PERIPHERAL IV DATA: Not applicable SIGNED BY: Kendal Dillon March 19, 2019 11:30 AM Normal [facility] PROGRESS HNO ID: [id number] Author: Mamadou Ames Service: ? Author Type: Nurse Practitioner Type: Progress Notes Filed: 03/19/2019 2:48 PM Note Text: Subjective HPI HPI Janiya Betancur is a 39 year old male who presents today for CC of left ankle pain without injury. This started 3-4 weeks go. Symptoms are worsened by walking. Risk factors hx of surgery to left ankle requiring plates and screws, concerned something has changed. .Patient presents with: left ankle pain: x 3-4 weeks-old injury PAST MEDICAL HISTORY Diagnosis Date - NEGATIVE MEDICAL HISTORY PAST SURGICAL HISTORY Procedure Laterality Date - NONE ALLERGIES Asa [Salicylates]; Penicillins MEDICATIONS ustekinumab (STELARA SUBCUTANEOUS) Inject subcutaneously. HYDROCODONE-ACETAMI NOPHEN 5 MG-500 MG TAB Take one(1) tablet every four(4) to six(6) hours as needed for pain. FAMILY HISTORY Problem Relation Age of Onset - other (bronchitis [Other]) Mother - Heart Father September 2003 of [place] Social History Tobacco Use - Smoking status: Current Every Day Smoker Packs/day: 0.50 Years: 10.00 Pack years: 5.00 Types: Cigarettes - Smokeless tobacco: Never Used Substance Use Topics - Alcohol use: Yes Comment: Weekends - Drug use: No Review of Systems Skin: Negative for itching and rash. Neurological: Negative for tingling. Objective Blood pressure 128/82, pulse 68, temperature 36.6 ?C (97.8 ?F), temperature source Tympanic, resp. rate 16, weight 75.1 kg (165 lb 9.6 oz). Physical Exam Constitutional: He is oriented to person, place, and time and well-developed, well-nourished, and in no distress. Non-toxic appearance. He does not have a sickly appearance. No distress. HENT: Head: Normocephalic and atraumatic. Pulmonary/Chest: Effort normal. No accessory muscle usage. No respiratory distress. Musculoskeletal: Left ankle: He exhibits normal range of motion, no swelling, no ecchymosis, no deformity, no laceration and normal pulse. Tenderness. Lateral malleolus tenderness found. Feet: Neurological: He is alert and oriented to person, place, and time. Skin: He is not diaphoretic. ASSESSMENT/PLAN: 1. Left ankle pain, unspecified chronicity - ICD9: 719.47, ICD10: M25.572 -no bony abnormality noted on xray -Rest, Ice, Compression, Elevation discussed -discussed use of ibuprofen -follow up with primary care/ortho if symptoms persist/worsen in 10-14 days - XR ANKLE GENERAL 3V AP/LAT/OBL LT - Dictated by : LEONILA NICHOLSON MD Impression: 1. ?No acute fracture or dislocation. Mamadou Ames APRN.[employer] Normal [facility] XR ANKLE 3V AP/LAT/OBL LTon 03-19-2019 XR ANKLE 3V AP/LAT/OBL LT * * *Final Rep ort* * * DATE OF EXAM: Mar 19 2019 11:37AM WOX [id number] - XR ANKLE 3V AP/LAT/OBL LT / PROCEDURE REASON: Left ankle pain, unspecified chronicity * * * * Physician Interpretation * * * * Indication: Left ankle pain Comparison: None 3 views of the left ankle are obtained. There is normal architecture and mineralization of the bones. There is no acute fracture or dislocation. Ankle mortise is maintained. There is mid foot degenerative disease. There is an intramedullary yanet and screws transfixing a remote healed fracture of the distal left tibia. There is a plate and multiple screws in the distal left fibula. Hardware is intact. Impression: 1. No acute fracture or dislocation. Generator Operator: ELSA Transcribe Date/Time: Mar 19 2019 11:45A Dictated by : LEONILA NICHOLSON MD This examination was interpreted and the report reviewed and electronically signed by: LEONILA NICHOLSON MD on Mar 19 2019 11:46AM EST [id number] Normal [facility] Vital Signs Date Time Vital Sign Value Performing Clinician Faci lity 01-31-2025 15:04-0400 Body temperature 98.7 [degF] No Primary Care Physician [facility] 01-31-2025 15:04-0400 Diastolic blood pressure 79 mm[Hg] No Primary Care Physician [facility] 01-31-2025 15:04-0400 Heart rate 74 /min No Primary Care Physician [facility] 01-31-2025 15:04-0400 Respiratory rate 16 /min No Primary Care Physician [facility] 01-31-2025 15:04-0400 SaO2% (BldA) [Mass fraction] 100 % No Primary Care Physician [facility] 01-31-2025 15:04-0400 Systolic blood pressure 152 mm[Hg] No Primary Care Physician [facility] 01-31-2025 09:35-0400 Body height 180.34 cm No Primary Care Physician [facility] 01-31-2025 09:35-0400 Body mass index (BMI) [Ratio] 22.2 kg/m2 No Primary Care Physician [facility] 01-31-2025 09:35-0400 Body weight 72.34 kg No Primary Care Physician [facility] Encounters Encounter Date Encounter Type Care Provider Facility Start: 01-31-2025 Evaluation and management of inpatient Dr. Jacky Montelongo DO -[facility] Work Phone: Start: 01-31-2025 observation encounter No Prima Care Physician -[facility] Care Unit Procedures Date Procedure Procedure Detail Performing Clinician Start: 01-31-2025 X-ray of chest, PA a nd lateral views No Primary Care Physician Start: 01-31-2025 Estimated creatinine clearance No Primary Care Physician Plan of Treatment Date Care Activity Detail Author Start: 02-01-2025 Cardiovascular stres s test using pharmacologic stress agent Nuclear Stress Test - Chemical [facility] Start: 02-01-2025 Complete blood count [facility] Start: 01-31-2025 Following clinical p athway protocol [facility] Start: 01-31-2025 Ambulation without limitation [facility] Start: 01-31-2025 Assessment of risk o f venous thromboembolism [facility] Start: 01-31-2025 Insertion of cathete r into peripheral vein [facility] Start: 01-31-2025 Oxygen therapy [facility] Start: 01-31-2025 Providing care accor ding to standard [facility] Start: 01-31-2025 [facility] Start: 01-31-2025 Thyroid stimulating hormone measurement [facility] Start: 01-31-2025 Admission procedure [facility] Start: 01-31-2025 Verification routine [facility] Start: 01-31-2025 [facility] Anion gap in Serum o r Plasma [facility] BUN/Creatinine ratio [facility] Calcium [Mass/volume ] in Serum or Plasma [facility] Carbon dioxide, tota l [Moles/volume] in Central venous blood [facility] Cholesterol [Mass/vo lume] in Serum or Plasma [facility] Cholesterol in HDL [Mass/volume] in Serum or Plasma [facility] Creatinine [Mass/vol ume] in Serum or Plasma [facility] Erythrocyte mean corpuscular volume determination [facility] Glucose [Mass/volume ] in Serum or Plasma [facility] Hematocrit [Volume Fraction] of Blood [facility] Hemoglobin [Mass/vol ume] in Blood [facility] Hemoglobin A1c/Hemoglobin.total in Blood [facility] Leukocytes [#/volume ] in Blood [facility] Low density lipoprot ein cholesterol measurement [facility] Mean corpuscular hem oglobin concentration determination [facility] Mean corpuscular hem oglobin determination [facility] Measurement of renal function [facility] Platelets [#/volume] in Blood [facility] Potassium measurement [facility] Red blood cell count [facility] Red cell distributio n width determination [facility] Serum chloride measurement [facility] Sodium measurement [facility] Total cholesterol:HD L ratio measurement [facility] Triglycerides measurement [facility] Urea nitrogen [Mass/ volume] in Serum or Plasma [facility] VLDL cholesterol measurement [facility] Immunizations Immunization Date Immunization Notes Care Provider Lucas hendricks 04-03-2012 Influenza virus vaccine No P [facility] Care Physician [facility] Payers Date Payer Category Payer Policy ID Unknown [id number] Unknown [id number] Unknown [id number] Unknown Social History Date Type Detail Facility Start: 01-31-2025 Tobacco smoking stat [place] NDIS Smokes tobacco daily (finding) [facility] Start: 1980 Sex Assigned At Male [facility] Mental Status Date Assessment Result Facility 01-31-2025 Cognitive function Level Of Cons ciousness Awake;Alert;Appropriate;Follow s Commands [facility] Work Phone: Discharge summary 01-31-2025 Note Date & Type Note Facility 01-31-2025 Discharge summary [facility] Discharge summary 01-31-2025 Note Date & Type Note Facility 01-31-2025 Discharge summary Note Date/Time January 31, 2025 2:24pm [facility] Medical Records Department [address] [place] [address] Emergency Department Summary 01/31/25 MR#: [id number] Acct: [id number] Name: JANIYA BETANCUR Rep #:[id number] : 1980 44 From: Mundo ralph DO PCP: Care Physician,No Primary Status :REG ER Location: ED HPI History of Present Illness Chief Complaint: Chest Pain Narrative Narrative: Chief complaint and HPI: Chest pain. 44-year-old male with no significant past medical history although has not seen a physician in years presents for evaluation of chest pain. 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 Associated symptom was nausea. Patient states that the arm pain/numbness has improved however he still endorses some mild chest pressure. He has a family history of DE with his dad having an DE in his 50s. Tobacco abuser. Denies anyshortness of breath, bilateral lower extremity swelling or pain. Review of systems: See HPI Medications: As listed on the chart Allergies: As listed on the chart PFSH: Per chart Vital signs: As listed on the chart. Reviewed. Physical exam: Gen: A&O x3, NAD Head: Normocephalic, atraumatic Eyes: No sclera icterus, conjunctiva clear ENT: Moist mucous membranes Neck: Trachea midline, No JVD CV: RRR, no murmurs, no peripheral edema, radial pulses +2 bilaterally Resp: Lungs CTA BL, no w/r/c GI: Abd soft, non-distended, non-tender, no r/r/g Musc: Full ROM, no deformity Skin: Warm, dry Neuro: Alert, oriented, grossly intact, sensation intact Psych: Cooperative, appropriate mood and affect [facility] Medical History (Updated 01/31/25 @ 09:49 by Mackenzie Anton) History of ankle fracture Home Medications ?Medication ?Instructions ?Recorded ?Last Taken ?Type NK 01/31/25 Unknown History Allergy/AdvReac Type Severity Reaction Status Date / Time Penicillins Allergy Rash Verified 01/31/25 09:36 Social History Smoking Status: Current every day smoker tobacco type: cigarettes EXAM Physical Exam Const Vital Signs: 01/31/25 09:35 01/31/25 09:50 01/31/25 10:34 Temperature 98.6 F Temperature Source Oral Pulse Rate 76 71 Respiratory Rate 16 14 Respiratory Effort Normal Non-Labored Blood Pressure 156/92 H 140/94 H Blood Pressure Mean 113 109 Pulse Ox 100 95 Oxygen Delivery Method Room Air Room Air 01/31/25 11:00 01/31/25 12:00 01/31/25 13:00 Temperature Temperature Source Pulse Rate 63 62 75 Respiratory Rate 13 Respiratory Effort Blood Pressure 140/94 H 148/06 H 148/106 H Blood Pressure Mean 109 53 120 Pulse Ox Oxygen Delivery Method MDM MDM MDM Narrative Medical decision making narrative: 44-year-old male with no significant past medical history although has not seen a physician in years presents for evaluation of chest pain. Differential diagnosis includes but is not limited to ACS, hypertension urgency, hypertensionemergency, suspect less likely CHF. Aspirin ordered for symptoms. Cardiac workup ordered. EKG and chest x-ray reviewed see below. CBC without leukocytosis or anemia. Coagulation panel unremarkable. BMP unremarkable. BNPunremarkable. Troponin x 2 unremarkable. On reevaluation, patient states his chest pain has improved. Patient's heart score is a 4 which places him in the moderate category for ACS. Given his family history as well as his presentation, I do think feel that the patient would benefit from admission for inpatient stress test. Patient was updated about the results and the plan. He confirmed understanding. Hospitalist accept admission. EKG: Interpreted by me/EM physician: EKG shows normal sinus rhythm without any acute ischemic changes. Heart rate 78 Diagnostic: Interpreted by me/EM physician: Chest x-ray without pneumonia, effusion, cardiomegaly, pneumothorax. Radiology in agreement. Impression: 1. Chest pain 2. Hypertension 3. Tobacco use Lab Data Labs: Laboratory Results - last 24 hr 01/31/25 01/31/25 09:47 12:35 WBC 8.2 RBC 4.95 Hgb 15.3 Hct 44.4 MCV 89.7 MCH 30.9 MCHC 34.5 RDW Std Deviation 45.1 H RDW Coeff of Brandi 13.7 Plt Count 230 MPV 10.4 Immature Gran % (Auto) 0.100 Neut % (Auto) 50.4 Lymph % (Auto) 36.5 Mcleod % (Auto) 9.4 Eos % (Auto) 2.7 Baso % (Auto) 0.9 Absolute Neuts (auto) 4.2 Absolute Lymphs (auto) 3.00 Nucleated RBC % 0 PT 12.5 INR 0.9 APTT 26.9 Sodium 140 Potassium 3.7 Chloride 103 Carbon Dioxide 23.8 Anion Gap 13 BUN 7 Creatinine 0.82 Estim Creat Clear Calc 116.41 Est GFR (MDRD) Non-Af 110 BUN/Creatinine Ratio 8.8 L Glucose 76 Calcium 9.0 Troponin T High Sens 10 Troponin T Hi Sens 2 Hr < 6 NT pro BNP II < 36 Radiography Diagnostic Testing: Clinical Impression(s) from Imaging Studies Chest X-Ray 01/31/25 10:28 IMPRESSION: Mild thoracic spine degenerative changes are noted. Biapical pleural-parenchymal scarring is noted. Lungs are moderately hyperinflated. No evidence of pulmonary edema. No acute pneumonic process is seen. No pleural effusion or pneumothorax is noted. The cardiomediastinal silhouette is within the normal range. No evidence of acute cardiopulmonary disease. Reading Location: [place] [address] Discharge Plan Triage Chief Complaint: Chest Pain ED Provider: Mundo Lemus Dx/Rx/DC Orders Prescriptions: No Action NK Primary Care Provider: Care Physician,No Primary Referrals: Care Physician,No Primary [Primary Care Provider] - Print Language: Kazakh What to do if you have Problems For any increased pain, shortness of breath, bleeding, nausea or vomiting, chestpain, or any unexpected problems, contact your Primary Care Provider. Call [facility] ([phone]) or report to the closest Emergency Room. Call 911 if necessary. 01/31/25 1424 <Electronically signed by Mundo Lemus DO> Cosigner Signature (if applicable): CC: No Primary Care Physician ~ Signed [facility] Work Phone: Radiology Diagnostic study note 01-31-2025 Note Date & Type Note Facility 01-31-2025 Radiology Diagnostic study note [facility] Imaging Services [address] [place] [id number] Chest PA and Lateral MR#: [id number] Acct: [id number] Name: JANIYA BETNACUR Rep #: [id number] : 1980 M 44 From: Jorge Alberto Curran MD PCP: Care Physician,No Primary Status: REG ER Study:Chest PA and Lateral Date of Exam: 01/31/25 Exam# [id number] Ordering Dr: Mundo Lara DO PROCEDURE: CHEST PA AND LATERAL 01/31/2025 REASON FOR EXAM: CHEST PAIN TECHNIQUE: Three-view CHEST PA AND LATERAL COMPARISON: None. RAD/Chest PA and Lateral IMPRESSION: Mild thoracic spine degenerative changes are noted. Biapical pleural-parenchymal scarring is noted. Lungs are moderately hyperinflated. No evidence of pulmonary edema. No acute pneumonic process is seen. No pleural effusion or pneumothorax is noted. The cardiomediastinal silhouette is within the normal range. No evidence of acute cardiopulmonary disease. Reading Location: [place] [address] CC: Dr. Mundo Lemus, DO; No Primary Care Physician ~ Generator Operator: Signed [facility] Evaluation note Note Date & Type Note Facility Evaluation note No assessment information availa ble [facility] Work Phone: Reason for referral (narrative) Note Date & Type Note Facility Reason for referral (narrative) No reason for referral information available [facility] Work Phone: Summary Purpose Family History No Family History Records Found Advance Directives Advance Directive Response Recorded Date/ Time Do you have a Healthcare Power of Brand Planner? No January 31, 2025 9:50am Advance Directives No October 26, 014 1:49am Chief Complaint and Reason for Visit Chief Complaint Admit Date CHEST PAIN January 31, 2025 2:16 pm Additional Source Comments (unrecognized sect ion and content) No Status Records Found INFORMATION SOURCE (unrecogn ized section and content) DATE CREATED AUTHOR 07/24/2019 [facility] Teams (unrecognized sec tion and content) Team Status: Active Member Role/Relationship Status Dates No Primary Care Physician Primary Care Provider Active Team Status: Active Member Role/Relationship Status Dates No Primary Care Physician Primary Care Provider Active Start: January 31, 2025 Dr. Mundo Lemus DO Emergency Provider Activ e Start: January 31, 2025 Dr. Jacky Montelongo DO Admit Provider Active Start: January 31, 2025 Dr. Jacky Montelongo DO Attending Provider Active Start: January 31, 2025 Goals (unrecognized section and content) Goals may be documented in a n alternate section FOR RECORDS PERTAINING TO PATIENTS WHO ARE OR HAVE BEEN ENROLLED IN A CHEMICAL DEPENDENCY/SUBSTANCEABUSE PROGRAM, SOME INFORMATION MAY BE OMITTED. This clinical summary was aggregated from multiple sources. Caution should be exercised in using it in the provision of clinical care. This summary normalizes information from multiple sources, and as a consequence, information in this document may materially change the coding, format and clinical context of patient data. In addition, data may be omitted in some cases. CLINICAL DECISIONS SHOULD BE BASED ON THE PRIMARY CLINICAL RECORDS. [facility] [employer] [facility] [facility] provides no warranty or guarantee of the accuracy or completeness of information in this document.
--- OUTSIDE RECORDS SUMMARY | 2025-01-31 18:31 | XMS RPT_ITS | CCD ---
Author Organization [facility] Care Team Providers Care [place] Name Role Phone Care Physician, No Primary Primary Care Provider Unavailable Dr. Mundo Lemus DO Emergency Provider Dr. Jacky Montelongo DO Admit Provider [phone] Dr. Jacky Montelongo DO Attending Provider Allergies Allergy Classification Reported Allergen(s) Allergy Type Date of Onset Reaction(s) Facility (1 source) Penicillins Allergy to substance 01-31-2025 [facility] Medications Current Medications Medication Drug Class(es) Dates Sig (Normalized) Sig (Original) [place] (Nk) (1 source) Start: 01-31-2025 [place] (Nk) A ctive January 31, 2025 12:00am [...] Auto (Unsp spec) [#/Vol] 3.00 10*3/uL 0.83-4.51 [facility] Absolute neutrophil countOrd ered By: Mundo Lemus on 01-31-2025 Neutrophils (Bld) [#/Vol] 4.2 10*3/uL 2.0-7.7 [facility] Activated partial thrombopla stin time (aPTT) in platelet poor plasma by coagulation aOrdered By: Mundo Lemus on 01-31-2025 aPTT Coag (PPP) [Time] 26.9 s 24.1-36.2 [facility] Anion gap in Serum or Plasma Ordered By: Mundo Lemus on 01-31-2025 Anion gap [Moles/Vol] 13 mmol/L 5-15 [facility] Automated lymphocyte count a s percentage of total leukocytesOrdered By: Mundo Lemus on 01-31-2025 Lymphocytes/100 WBC Auto (Unsp spec) 36.5 % 19-41 [facility] BUN/creatinine ratioOrdered By: Mundo Lemus on 01-31-2025 Urea nitrogen/Creatinine [Mass ratio] 8.8 mg/mg Low 10-20 [facility] Basophil percentageOrdered B y: Mundo Lemus on 01-31-2025 Basophils/100 WBC (Bld) 0.9 % 0-1 [facility] Carbon dioxide, total [Moles /volume] in Central venous bloodOrdered By: Mundo Lemus on 01-31-2025 CO2 [Moles/Vol] 23.8 mmol/L 21.0-32.0 [facility] Chloride assayOrdered By: Eric Lemus on 01-31-2025 Chloride [Moles/Vol] 103 mmol/L 98-108 [facility] Eosinophil percentageOrdered By: Mundo Lemus on 01-31-2025 Eosinophils/100 WBC (Bld) 2.7 % 0-5 [facility] Erythrocyte distribution wid th ratioOrdered By: Mundo Lemus on 01-31-2025 Erythrocyte distribution width (RBC) [Ratio] 13.7 % 11.6-14.6 [facility] Erythrocyte distribution wid th standard deviationOrdered By: Mundodonell Farfan on 01-31-2025 Erythrocyte distribution width (RBC) [Ratio] 45.1 fl High 35.1-43.9 [facility] Glomerular filtration rate ( GFR) estimation/1.73 sq m using serum, plasma, or whole bOrdered By: Mundodonell Lemus on 01-31-2025 GFR/1.73 sq M.predicted among non-blacks MDRD (S/P/Bld) [Vol rate/Area] 110 mL/min/{1.73_m2} >60 [facility] Comment on above: mL/min/1.73m2 CKD-EP I Creatinine Equation (2020) Hematocrit Auto (Bld) [Volum e fraction]Ordered By: Mundodonell Lemus on 01-31-2025 Hematocrit (Bld) [Volume fraction] 44.4 % 40-54 [facility] Hemoglobin measurementOrdere d By: Mundo Lemus on 01-31-2025 Hemoglobin (Bld) [Mass/Vol] 15.3 g/dL 13.0-16.5 [facility] Immature granulocytes/100 WB C Auto (Bld)Ordered By: [place] Mariah on 01-31-2025 Immature granulocytes/100 WBC (Bld) 0.100 % 0.0-0.9 [facility] Comment on above: IG% - Immature Granu locytes (promyelocytes, myelocytes and metamyelocytes) > 1% indicates that a LEFT SHIFT is Present. International normalized rat io (INR) calculationOrdered By: Mundodonell Lemus on 01-31-2025 INR Coag (Bld) [Relative time] 0.9 {INR} [facility] MCV (mean corpuscular volume ) determinationOrdered By: Mundo Mariah on 01-31-2025 MCV (RBC) [Entitic vol] 89.7 fL 80-94 [facility] Mean corpuscular hemoglobin (MCH) determinationOrdered By: [facility] 01-31-2025 MCH (RBC) [Entitic mass] 30.9 pg 27.0-32.0 [facility] Mean corpuscular hemoglobin concentration (MCHC) determinationOrdered By: Mundo Lemus on 01-31-2025 MCHC (RBC) [Mass/Vol] 34.5 g/dL 32-36 [facility] Mean platelet volume determi nationOrdered By: Mundo Lemus on 01-31-2025 Platelet mean volume (Bld) [Entitic vol] 10.4 fL 6.2-12.0 [facility] Monocyte percentageOrdered B y: Mundo Lemus on 01-31-2025 Monocytes/100 WBC (Bld) 9.4 % 0-10 [facility] Natriuretic peptide.B prohor janice N-Terminal [Mass/volume] in Serum or PlasmaOrdered By: Mundo Lemus on 01-31-2025 Natriuretic peptide.B prohormone N-Terminal [Mass/Vol] < 36 pg/mL <450 [facility] Comment on above: Heart Failure Unlike ly: < 300 pg/mLHeart Failure Likely< 50 Years: > 450 pg/mL50-75 Years: > 900 pg/mL>75 Years: > 1800 pg/mL Neutrophil percentageOrdered By: Mundo Lemus on 01-31-2025 Neutrophils/100 WBC (Bld) 50.4 % 47-70 [facility] Nucleated red blood cell per centageOrdered By: Mundo Lemus on 01-31-2025 Nucleated RBC/100 WBC (Bld) [Ratio] 0 % 0-5 [facility] Platelet countOrdered By: Eric Lemus on 01-31-2025 Platelets (Bld) [#/Vol] 230 10*3/uL 150-450 [facility] Potassium measurement (mass/ volume)Ordered By: Mundo Lemus on 01-31-2025 Potassium (Unsp spec) [Mass/Vol] 3.7 mmol/L 3.3-5.1 [facility] Prothrombin timeOrdered By: Mundo Lemus on 01-31-2025 PT Coag (PPP) [Time] 12.5 s 11.7-14.9 [facility] RBC Auto (Bld) [#/Vol]Ordere d By: Mundo Lemus on 01-31-2025 RBC (Bld) [#/Vol] 4.95 10*6/uL 4.6-6.2 [facility] Serum creatinine measurement (mass/volume)Ordered By: Mundo Lemus on 01-31-2025 Creatinine [Mass/Vol] 0.82 mg/dL 0.70-1.20 [facility] Serum glucose measurement (m ass/volume)Ordered By: Mundo Lemus on 01-31-2025 Glucose [Mass/Vol] 76 mg/dL 70-99 [facility] Serum or plasma calcium gómez urement (mass/volume)Ordered By: Mundo Farfan on 01-31-2025 Calcium [Mass/Vol] 9.0 mg/dL 7.6-11.0 [facility] Serum or plasma urea nitroge n measurement (mass/volume)Ordered By: Mundo Lemus on 01-31-2025 Urea nitrogen [Mass/Vol] 7 mg/dL 4-19 [facility] Sodium levelOrdered By: Dom Lemus on 01-31-2025 Sodium [Moles/Vol] 140 mmol/L 133-145 [facility] Troponin T.cardiac [Mass/vol ume] in Serum or Plasma by High sensitivity methodOrdered By: Mundo Lemus on 01-31-2025 Troponin T.cardiac High sensitivity method [Mass/Vol] < 6 ng/L <22 [facility] Troponin T.cardiac High sensitivity method [Mass/Vol] 10 ng/L <22 [facility] White blood cell (WBC) count Ordered By: Mundo Lemus on 01-31-2025 WBC (Bld) [#/Vol] 8.2 10*3/uL 4.4-11.0 [facility] CNOVon 07-24-2019 CNOV Office Visit (UCWSTR) ---- BETANCURJANIYA ([id number]) 1980 M Date Time Provider Department 07/24/19 [...] Mother - Heart Father September 2003 of [place] Social History Tobacco Use - Smoking status: [...] [J40] Order(s):XR RIBS/CHEST 3V AP RIB/OBLS/CXR RT [[id number]] Order #: [id number] FUTURE predniSONE (DELTASONE) 20 mg tabletTake 2 [...] by JUDITH MEDINA PA-C on 07/24/19 Normal [facility] PROGRESSon 07-24-2019 PROGRESS HNO ID: [id number] Author: Judith Medina (Pa) Service: ? Author Type: Physician Brush Trimming Machine Setter Type: Progress Notes Filed: 07/24/2019 11:15 AM [...] Mother - Heart Father September 2003 of [place] Social History Tobacco Use - Smoking status: [...] follow-up with PCP. Judith Medina PA-C Normal [facility] PROGRESS HNO ID: [id number] Author: Nimo Gonzalez (Rt) Kamron Sanchez Service: ? Author Type: [place] Type: Progress Notes Filed: 07/24/2019 9:52 AM [...] [place] July 24, 2019 9:41 AM Normal [facility] XR RIB/CHST 3V AP RIB/OBL/CH ST Jamshid [...] or nondisplaced rib fracture. IMPRESSION: Negative ribs. Enrollment Management Director: PSCB Transcribe Date/Time: Jul 24 2019 10:18A Dictated by : CHRISTIANA PERAZA MD This examination was interpreted and the report reviewed and electronically signed by: CHRISTIANA PERAZA MD on Jul 24 2019 10:19AM EST [id number] Normal [facility] CNOVon 03-19-2019 CNOV Office Visit (UCWSTR) ---- JANIYA BETANCUR ([id number]) 1980 M Date Time Provider Department 03/19/19 11:00 AM MAMADOU AMES (BRANCH OFFICE MANAGER) WSTR During your visit today, we recorded [...] Mother - Heart Father September 2003 of [place] Social History Tobacco Use - Smoking status: [...] ?No acute fracture or dislocation. Mamadou Ames APRN.BRANCH OFFICE MANAGER Referring Provider: SELF [200] Allergies As of Date: 03/19/2019 Noted Allergy Reaction ASA (SALICYLATES) 01/17/2007 PENICILLINS 01/26/2016 4 - Hives Date Reviewed: 03/19/2019 Reviewed by: Jazmin Arriola LPN - Fully Assessed Reason for Visit: left ankle pain [Other] Cmt: x 3-4 weeks-old injury Primary Visit Diagnosis:Left ankle pain, unspecified chronicity [M25.572] Order(s):XR ANKLE GENERAL 3V AP/LAT/OBL LT [[id number]] Order #: [id number] #:[id number] Prescriptions as of 03/19/2019 Sig: STELARA SUBCUTANEOUS Inject subcutaneously. HYDROCODONE 5 MG-ACETAMINOPHE* Take one(1) tablet every four* Patient not taking: No more than 4000 mg of aceta* Problem List As Of Date 03/19/2019 Noted Resolved LUMBAGO [M54.5] INVALID FOR* Letter Text Letter Text Encounter Status:Closed by MAMADOU AMES CNP on 03/19/19 [facility] PROGRESSon 03-19-2019 PROGRESS HNO ID: [id number] Author: Kendal Dillon Service: ? Author Type: [...] Dillon March 19, 2019 11:30 AM Normal [facility] PROGRESS HNO ID: [id number] Author: Mamadou Ames Service: ? Author Type: [...] Mother - Heart Father September 2003 of [place] Social History Tobacco Use - Smoking status: [...] ?No acute fracture or dislocation. Mamadou Ames APRN.BRANCH OFFICE MANAGER Normal [facility] XR ANKLE 3V AP/LAT/OBL LTon 03-19-2019 XR [...] Impression: 1. No acute fracture or dislocation. Enrollment Management Director: ELSA Transcribe Date/Time: Mar 19 2019 11:45A Dictated by : LEONILA NICHOLSON MD This examination was interpreted and the report reviewed and electronically signed by: LEONILA NICHOLSON MD on Mar 19 2019 11:46AM EST [id number] Normal [facility] Vital Signs Date Time Vital Sign Value Performing Clinician Faci lity 01-31-2025 15:04-0400 Body temperature 98.7 [degF] No Primary Care Physician [facility] 01-31-2025 15:04-0400 Diastolic blood pressure 79 mm[Hg] No Primary Care Physician [facility] 01-31-2025 15:04-0400 Heart rate 74 /min No Primary Care Physician [facility] 01-31-2025 15:04-0400 Respiratory rate 16 /min No Primary Care Physician [facility] 01-31-2025 15:04-0400 SaO2% (BldA) [Mass fraction] 100 % No Primary Care Physician [facility] 01-31-2025 15:04-0400 Systolic blood pressure 152 mm[Hg] No Primary Care Physician [facility] 01-31-2025 09:35-0400 Body height 180.34 cm No Primary Care Physician [facility] 01-31-2025 09:35-0400 Body mass index (BMI) [Ratio] 22.2 kg/m2 No Primary Care Physician [facility] 01-31-2025 09:35-0400 Body weight 72.34 kg No Primary Care Physician [facility] Encounters Encounter Date Encounter Type Care Provider [...] stress agent Nuclear Stress Test - Chemical [facility] Start: 02-01-2025 Complete blood count [facility] Start: 01-31-2025 Following clinical p athway protocol [facility] Start: 01-31-2025 Ambulation without limitation [facility] Start: 01-31-2025 Assessment of risk o f venous thromboembolism [facility] Start: 01-31-2025 Insertion of cathete r into peripheral vein [facility] Start: 01-31-2025 Oxygen therapy [facility] Start: 01-31-2025 Providing care accor ding to standard [facility] Start: 01-31-2025 [facility] Start: 01-31-2025 Thyroid stimulating hormone measurement [facility] Start: 01-31-2025 Admission procedure [facility] Start: 01-31-2025 Verification routine [facility] Start: 01-31-2025 [facility] Anion gap in Serum o r Plasma [facility] BUN/Creatinine ratio [facility] Calcium [Mass/volume ] in Serum or Plasma [facility] Carbon dioxide, tota l [Moles/volume] in Central venous blood [facility] Cholesterol [Mass/vo lume] in Serum or Plasma [facility] Cholesterol in HDL [Mass/volume] in Serum or Plasma [facility] Creatinine [Mass/vol ume] in Serum or Plasma [facility] Erythrocyte mean corpuscular volume determination [facility] Glucose [Mass/volume ] in Serum or Plasma [facility] Hematocrit [Volume Fraction] of Blood [facility] Hemoglobin [Mass/vol ume] in Blood [facility] Hemoglobin A1c/Hemoglobin.total in Blood [facility] Leukocytes [#/volume ] in Blood [facility] Low density lipoprot ein cholesterol measurement [facility] Mean corpuscular hem oglobin concentration determination [facility] Mean corpuscular hem oglobin determination [facility] Measurement of renal function [facility] Platelets [#/volume] in Blood [facility] Potassium measurement [facility] Red blood cell count [facility] Red cell distributio n width determination [facility] Serum chloride measurement [facility] Sodium measurement [facility] Total cholesterol:HD L ratio measurement [facility] Triglycerides measurement [facility] Urea nitrogen [Mass/ volume] in Serum or Plasma [facility] VLDL cholesterol measurement [facility] Immunizations Immunization Date Immunization Notes Care Provider Lucas hendricks 04-03-2012 Influenza virus vaccine No P [facility] Care Physician [facility] Payers Date Payer Category Payer Policy ID Unknown [id number] Unknown [id number] Unknown [id number] Unknown Social History Date Type Detail Facility Start: 01-31-2025 Tobacco smoking stat us [facility] Smokes tobacco daily (finding) [facility] Start: 1980 Sex Assigned At Male [facility] Mental Status Date Assessment Result Facility 01-31-2025 Cognitive function Level Of Cons ciousness Awake;Alert;Appropriate;Follow s Commands [facility] Work Phone: Discharge summary 01-31-2025 Note Date & Type Note Facility 01-31-2025 Discharge summary [facility] Discharge summary 01-31-2025 Note Date & Type Note Facility 01-31-2025 Discharge summary Note Date/Time January 31, 2025 2:24pm [facility] Medical Records Department [address] [place] [address] Emergency Department Summary 01/31/25 MR#: [id number] Acct: [id number] Name: JANIYA BETANCUR Rep #:[id number] : 1980 44 From: Mundo ralph DO [...] pressure. He has a family history of MA with his dad having an MA in his 50s. Tobacco abuser. Denies anyshortness [...] intact Psych: Cooperative, appropriate mood and affect [facility] Medical History (Updated 01/31/25 @ 09:49 by Maceknzie Anton) History of ankle fracture Home Medications [...] % (Auto) 50.4 Lymph % (Auto) 36.5 [place] % (Auto) 9.4 Eos % (Auto) 2.7 [...] evidence of acute cardiopulmonary disease. Reading Location: [place] [address] Discharge Plan Triage Chief Complaint: Chest Pain ED Provider: Mundo Lemus Dx/Rx/DC Orders Prescriptions: No Action NK Primary Care Provider: Care Physician,No Primary Referrals: Care Physician,No Primary [Primary Care Provider] - Print Language: Nigerien What to do if you have Problems For any increased pain, shortness of breath, bleeding, nausea or vomiting, chestpain, or any unexpected problems, contact your Primary Care Provider. Call [facility] ([phone]) or report to the closest Emergency Room. Call 911 if necessary. 01/31/25 1424 <Electronically signed by Mundo Lemus DO> Cosigner Signature (if applicable): CC: No Primary Care Physician ~ Signed [facility] Work Phone: Radiology Diagnostic study note 01-31-2025 Note Date & Type Note Facility 01-31-2025 Radiology Diagnostic study note [facility] Imaging Services [address] [place] [id number] Chest PA and Lateral MR#: [id number] Acct: [id number] Name: JANIYA BETANCUR Rep #: [id number] : 1980 M 44 From: Jorge Alberto Curran MD PCP: Care Physician,No Primary Status: REG ER Study:Chest PA and Lateral Date of Exam: 01/31/25 Exam# [id number] Ordering Dr: Mundo Lara DO PROCEDURE: CHEST [...] evidence of acute cardiopulmonary disease. Reading Location: [place] [address] CC: Dr. Mundo Lemus, DO; No Primary Care Physician ~ Enrollment Management Director: Signed [facility] Evaluation note Note Date & Type Note Facility Evaluation note No assessment information availa ble [facility] Work Phone: Reason for referral (narrative) Note Date & Type Note Facility Reason for referral (narrative) No reason for referral information available [facility] Work Phone: Summary Purpose Family History No Family History Records Found Advance Directives Advance Directive Response Recorded Date/ Time Do you have a Healthcare Power of Vision Impaired Teacher? No January 31, 2025 9:50am Advance Directives No October 26, 014 1:49am Chief Complaint and Reason for Visit Chief Complaint Admit Date CHEST PAIN January 31, 2025 2:16 pm Additional Source Comments (unrecognized sect ion and content) No Status Records Found INFORMATION SOURCE (unrecogn ized section and content) DATE CREATED AUTHOR 07/24/2019 [facility] Teams (unrecognized sec tion and content) Team [...] BE BASED ON THE PRIMARY CLINICAL RECORDS. [facility] [employer] [facility]. provides no warranty or guarantee of the accuracy or completeness of information in this document.
[2025-01-31] MEDS: 0.9% Saline Lock 10 ML Syringe IV (22:35)
[2025-01-31] MEDS: MELATONIN 3 MG TABLET PO (22:35)
[2025-02-01 02:50] VITALS: BP 129/75; PULSE 64; RESP 16; TEMP 36.3; O2SAT 100
[2025-02-01 05:30] LABS: Hematocrit 43.1 % (40-54); Hemoglobin 15.1 g/dL (13.0-16.5); Mean Corp Hgb Conc 35.0 g/dL (32-36); Mean Corpuscular Volume 88.7 fL (80-94); Mean Platelet Vol. 10.5 fl (6.2-12.0); Platelet Count 214 K/mm3 (150-450); RBC Distribution Width CV 13.3 % (11.6-14.6); RBC Distribution Width SD 43.6 fl (35.1-43.9); Red Blood Count 4.86 M/mm3 (4.6-6.2); White Blood Count 8.2 K/mm3 (4.4-11.0)
--- NOTE | 2025-02-01 05:55 | EKG12_ITS ---
Test Reason : AM EKG Blood Pressure : */* mmHG Vent. Rate : 64 BPM Atrial Rate : 64 BPM P-R Int : 144 ms QRS Dur : 88 ms QT Int : 410 ms P-R-T Axes : 78 73 69 degrees QTcB Int : 422 ms Normal sinus rhythm Normal ECG When compared with ECG of 31-Jan-2025 09:41, MANUAL COMPARISON REQUIRED DATA IS UNCONFIRMED Confirmed by LENIN PEREZ, AIDEE ([id number]), digital editor MARLON ROONEY ([id number]) on 02/01/2025 10:56:53 AM Referred By: SLICK Confirmed By: AIDEE PHELPS MD
--- NOTE | 2025-02-01 05:55 | EKG12_ITS ---
Test Reason : AM EKG Blood Pressure : */* mmHG Vent. Rate : 64 BPM Atrial Rate : 64 BPM P-R Int : 144 ms QRS Dur : 88 ms QT Int : 410 ms P-R-T Axes : 78 73 69 degrees QTcB Int : 422 ms Normal sinus rhythm Normal ECG When compared with ECG of 31-Jan-2025 09:41, MANUAL COMPARISON REQUIRED DATA IS UNCONFIRMED Confirmed by LENIN PEREZ, AIDEE ([id number]), web editor MARLON ROONEY ([id number]) on 02/01/2025 10:56:53 AM Referred By: SLICK Confirmed By: AIDEE PHELPS MD
[2025-02-01 06:22] LABS: Anion Gap 11 (5-15); BUN 13 mg/dL (4-19); BUN/Creat Ratio 15.2 RATIO (10-20); Calcium,Total 9.0 mg/dL (7.6-11.0); Carbon Dioxide 24.4 mmol/L (21.0-32.0); Chloride 102 mmol/L (98-108); Estimated Creatinine Clearance 112.00 ml/min (50-250); Glucose 87 mg/dL (70-99); Potassium 4.1 mmol/L (3.3-5.1)
[2025-02-01 06:57] VITALS: O2SAT 94
[2025-02-01 12:07] VITALS: BP 140/86; PULSE 59; RESP 16; TEMP 36.5; O2SAT 100
--- NOTE | 2025-02-01 12:13 | STRESSREP_ITS ---
Stress Test Report Exercise myocardial perfusion stress test. 44-year-old male patient with chest pain Stress protocol: Resting EKG demonstrates normal sinus rhythm with a heart rate of 60 bpm resting blood pressure is 118/82 mmHg. The patient exercised according to the regular Aldo protocol for a total duration of 11 minutes and 15 seconds attaining a ma ximum heart rate of 141 bpm which was 80% of maximum predicted heart rate; the maximum workload was 13.4 metabolic equivalents. At rest there were no ST or T wave changes noted to suggest ischemia and at peak exercise upsloping ST changes only were noted which did not meet the criteria for ischemia. No clinical angina was noted the test was terminated due to the target heart rate being achieved/fatigue. The peak blood pressure was 178/76 mmHg. Rate-pressure product was 25,098. Myocardial perfusion protocol. 12 mCi of technetium 99m sestamibi was injected at rest. The patient exercised according to regular Aldo protocol for total duration of 11 minutes and 15 seconds and at peak exercise 34.7 mCi of technetium 99m sestamibi was injected stress images were obtained stress and rest images were reconstructed in comparing the short axis vertical long and horizontal long axis. Gated images were also obtained. Perfusion SPECT analysis: Review of the stress images demonstrate normal uptake of tracer noted in all areas of the myocardium. The resting images similarly demonstrate normal uptake of tracer noted in all areas of the myocardium. No areas of reversibility are noted to suggest ischemia no previous infarct was noted. Gated SPECT analysis: The gated ejection fraction is [65%]. Conclusion: [Normal] exercise myocardial perfusion stress test at a good workload [Preserved] ejection fraction.
--- NOTE | 2025-02-01 14:41 | DCINST_ITS ---
Discharge Instructions DC O2, CPAP, BIPAP needs Home O2 Discharge instructions: No Dressing / Incision Discharge Activity: - (Increase activity as tolerated) Follow Up Care Test Results: Test results from this visit will be discussed in further detail at your follow- up appointment, if applicable. Discharge Plan Admission Admit Date/Time: 01/31/25 14:16 Primary Reason for Your Visit: Chest pain Attending Provider: Maryjane Valenzuela Primary Care Provider: Care Physician,No Primary Consulting Providers: Jacky Montelongo Instructions Patient Instructions: Quitting Smoking, Coping with Smoking Withdrawal, ED How to Quit Smoking Additional Instructions / Restrictions: You will be discharged on 5 mg of amlodipine It is recommended that you establish with PCP upon discharge, list will be provided for you so you can establish care Discharge Orders/Prescriptions Prescriptions: New amlodipine 5 mg Tablet 5 mg PO DAILY 30 Days Qty: 30 3RF Referrals / Follow Up: Care Physician,No Primary [Primary Care Provider] - ( -If you do not have a primary care physician of list of local primary care physicians can be provided for you upon discharge. Please ask for this list prior to discharge ) Disposition Disposition (needs filled in before D/C Order can be placed): Home, Self Care
--- NOTE | 2025-02-01 14:50 | PCM.DC.SUM ---
Providers Date of Admission: 01/31/25 Date of Discharge: 02/01/25 Primary Care Physician: No Primary Care Phys Reason For Visit: CHEST PAIN Diagnosis Discharge Diagnosis (1) Non-cardiac chest pain: Status: Acute Code(s): R07.89 - Other chest pain (2) HTN (hypertension): Status: Chronic Code(s): I10 - Essential (primary) hypertension (3) Tobacco use: Status: Acute Code(s): Z72.0 - Tobacco use Plan #Non cardiac chest pain #HTN #tobacco use Medications at Discharge Home Medications amlodipine 5 mg tablet 5 mg PO DAILY 30 days #30 tabs 02/01/25 Hospital Course Summary of Care Provided Minutes Spent on Discharge: 25 Hospital Course: per HPI: JANIYA BETANCUR, is a 44 M who presented to [facility] ED on 01/31/2025 with chest pain. Patient has minimal past medical history, takes no medications at home. However, notes that he has not seen a doctor in years. He has had chest pain off and on for the past few weeks. Pain is in left chest with intermittent radiation to the left arm. Does seem to worsen with exertion and get better with rest. 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 Had associated nausea with this. Given the symptoms, he came in for further evaluation. He is a current smoker, smokes 1 to 1.5 packs of cigarettes per day. 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 Does have family history of heart disease. Dad had an DC in his 50s. Mom has had stenting done in her 60s and 70s. In the ED he was hypertensive to the 150s systolic but otherwise in normal sinus rhythm and stable on room air at rest. CBC and BMP were benign. Troponins negative x 2. BNP normal. EKG with normal sinus rhythm with no ST changes. Chest x-ray unremarkable. However, given patient's reported history of the pain and family history, hospitalist was contacted for admission. I saw the patient at bedside in the ED. Patient was sitting back comfortably in bed, conversing normally, in no acute distress. He reported mild left-sided pain currently, improved from earlier today. He was given 1 dose of aspirin 325 mg in the ED but was not given any nitro. He denies any numbness/tingling down the left arm currently. Denies any other acute concerns at this time. Will be admitted for further management. INTERVAL HISTORY: Patient had no further complaints of chest pain, stress test and echocardiogram within normal limits. He was started amlodipine for some elevated blood pressures. Before discharge patient did say he actually had some irritation over the left chest wall when he pushed on it and thinks maybe he strained something. Discussed if he were to have any other concerning signs or symptoms that he should return to the ED. Also advised smoking cessation and patient to be provided with list of local PCPs to get established. Patient no new acute complaints on day of discharge Physical Exam Narrative General: Alert, oriented, no apparent distress HEENT: Atraumatic, normocephalic Eyes: Anicteric, normal conjunctiva, extraocular movements grossly intact Neck: Supple Respiratory: Clear to auscultation bilaterally, normal respiratory effort Cardiovascular: Regular rate and rhythm GI: Soft, nontender, nondistended Extremities: No edema Musculoskeletal: Moving all extremities Neuro: No overt focal neurological deficits Skin: No rashes appreciated Psych: Cooperative Weight / BMI Weight Weight: 71.3 kg Body Mass Index (BMI) 21.9 ABG / Lab / Microbiology Data 02/01/25 04:43 02/01/25 04:43 Laboratory: Laboratory Results - last 24 hr 01/31/25 17:37: Troponin T High Sens < 6 D 02/01/25 04:43: WBC 8.2, RBC 4.86, Hgb 15.1, Hct 43.1, MCV 88.7, MCH 31.1, MCHC 35.0, RDW Std Deviation 43.6, RDW Coeff of Brandi 13.3, Plt Count 214, MPV 10.5, Sodium 138, Potassium 4.1, Chloride 102, Carbon Dioxide 24.4, Anion Gap 11, BUN 13, Creatinine 0.84, Estim Creat Clear Calc 112.00, Est GFR (MDRD) Non-Af 109, BUN/Creatinine Ratio 15.2, Glucose 87, Calcium 9.0, Triglycerides 44, Cholesterol 162, LDL Cholesterol, Calc 84, VLDL Cholesterol 9, HDL Cholesterol 69, Cholesterol/HDL Ratio 2.35 D/C Instructions DC O2, CPAP, BIPAP Needs Home O2 Discharge instructions: No Meaningful Use Info Meaningful Use Meaningful Use Diagnoses (Choose all that apply): None applicable Discharge Plan Admission Admit Date/Time: 01/31/25 14:16 Primary Reason for Your Visit: Chest pain Attending Provider: Maryjane Valenzuela Primary Care Provider: Care Physician,No Primary Consulting Providers: Jacky Montelongo Instructions Patient Instructions: Quitting Smoking, Coping with Smoking Withdrawal, ED How to Quit Smoking Additional Instructions / Restrictions: You will be discharged on 5 mg of amlodipine It is recommended that you establish with PCP upon discharge, list will be provided for you so you can establish care Discharge Orders/Prescriptions Prescriptions: New amlodipine 5 mg Tablet 5 mg PO DAILY 30 Days Qty: 30 3RF Referrals / Follow Up: Care Physician,No Primary [Primary Care Provider] - ( -If you do not have a primary care physician of list of local primary care physicians can be provided for you upon discharge. Please ask for this list prior to discharge ) Disposition Disposition (needs filled in before D/C Order can be placed): Home, Self Care Charges/Coding Visit Charges Inpatient E&M: 60354 Disch Hosp
[2025-02-01 15:15] VITALS: BP 114/87; PULSE 58; RESP 16; TEMP 36.4; O2SAT 99
[2025-02-01 16:06] LABS: Cholesterol 162 mg/dL (<=200); Low Density Lipoprotein Calc. 84 mg/dL; Triglycerides 44 mg/dL; Very Low Density Lipoprotein 9 mg/dL (5-40); cholesterol:hdl ratio screen 2.35
== END 2025-02-01 16:02 | disposition home or self-care (01) ==
LOC: ED 10:21 → PCU 15:05
PROVIDERS: Admitting Provider Hospitalist; Emergency Provider Surgery; Visit Provider Internal Medicine
DX: R07.89 Other chest pain (principal); F17.210 Nicotine dependence, cigarettes, uncomplicated; R11.0 Nausea; Z82.49 Family history of ischemic heart disease and other diseases of the circulatory system; I10 Essential (primary) hypertension; R20.0 Anesthesia of skin; M79.602 Pain in left arm
CPT/HCPCS: 36415; 71046; 78452; 80048; 80061; 83036; 83880; 84443; 84484; 85025; 85027; 85610; 85730; 93005; 93017; 93306; 99221; 99285; 99406; A9500; A4216; G0378

== ENCOUNTER 2025-02-06 10:47 | Emergency (ER) | payer OTHER, SELFPAY ==
[2025-02-06 10:48] VITALS: BP 147/99; PULSE 76; RESP 16; TEMP 36.7; O2SAT 100; BMI 22.1
--- NOTE | 2025-02-06 11:14 | EDS_ITS ---
HPI History of Present Illness Chief Complaint: Hypertension Informant: patient Onset/Context/Timing Onset: Days Context: Gradual Onset Timing: Continuous Worsened by: Nothing Relieved by: Nothing Narrative Narrative: Patient presents with elevated blood pressure became worse today. Patient states he was recently admitted here for chest pain evaluation. Patient states he was started on amlodipine. Patient states he was scheduled to follow-up with his primary care physician today. Patient states that his primary care physician canceled his appointment. Patient states he was told that he recheck his blood pressure and if it was elevated to come to the emergency department. Patient states he checked his blood pressure and it was 155/93. Patient states he felt warm but denies any fevers or chills. Patient denies any chest pain or shortness of breath. Patient denies any nausea or vomiting. Patient denies any neck or back pain. [facility] Medical History (Updated 02/06/25 @ 14:[address] Edin Mackay DO) Tobacco use HTN (hypertension) History of ankle fracture Home Medications ?Medication ?Instructions ?Recorded ?Last Taken ?Type amlodipine 5 mg tablet 5 mg PO DAILY 30 days #30 ta bs 02/01/25 02/06/25 Rx amlodipine 10 mg tablet 10 mg PO DAILY #30 tabs 12/26 Unknown Rx Allergy/AdvReac Type Severity Reaction Status Date / Time Penicillins Allergy Rash Verified 02/06/25 11:20 Surgical History (Updated 02/06/25 @ 11:[address] Edin Mackay, ) Status post ORIF of fracture of ankle Social History Smoking Status: Light Smoker (<10/day) ROS ROS ED Constitutional Constitutional ED: Denies chills or fever(s) Eyes Eyes: Denies blurry vision or change in vision ENT ENT ED: Denies rhinorrhea or sore throat Cardiovascular Cardiovascular: Denies chest pain or palpitations Respiratory/Chest Respiratory/Chest: Denies cough or dyspnea Gastrointestinal Gastrointestinal: Denies nausea or vomiting Genitourinary Genitourinary ED: Denies dysuria or hematuria Musculoskeletal Musculoskeletal: Denies back pain or neck pain Integumentary Denies abscess or rash Neurologic Neurologic: Denies headache(s) or weakness Allergic/Immunologic Allergic/Immunologic ED: Denies mouth swelling or urticaria EXAM Physical Exam Const Vital Signs: 02/06/25 10:48 02/06/25 11:18 02/06/25 12:47 Temperature 98.1 F Temperature Source Oral Pulse Rate 76 63 Respiratory Rate 16 18 Respiratory Effort Normal Respiratory Pattern Normal Blood Pressure 147/99 H 142/88 H Blood Pressure Mean 115 106 Pulse Ox 100 100 Oxygen Delivery Method Room Air Room Air 02/06/25 13:44 Temperature Temperature Source Pulse Rate 58 L Respiratory Rate Respiratory Effort Respiratory Pattern Blood Pressure 142/90 H Blood Pressure Mean 107 Pulse Ox 100 Oxygen Delivery Method Room Air Positive well nourished and well developed Constitutional Narrative: BMI is 22.2. General Appearance ED: well developed and NAD HEENT Reports moist mucous membranes Neck supple and no JVD Resp normal respiratory effort and clear to auscultation bilaterally Cardio regular rate and regular rhythm GI non-tender and non-distended Palpation: soft Extremity normal to inspection General Extremety ED: Negative for edema or tenderness General Extremity: Negative for edema Neuro oriented x3, CN's II-XII intact bilaterally and no sensory deficits noted Sensorium / Orientation: alert Motor Exam: strength 5/5 throughout Psych mental status grossly normal MDM MDM MDM Narrative Medical decision making narrative: Differential diagnosis includes essential hypertension, acute kidney injury, electrolyte abnormality, cardiac ischemia, hypertensive urgency, and anxiety. EKG already obtained to assess for cardiac dysrhythmia or cardiac ischemia. Chest x-ray will be obtained to assess for pneumonia or bronchitis. CBC will be obtained to assess for leukocytosis and anemia. Basic metabolic profile will be obtained to assess for electrolyte abnormality and renal function. Lab Data Attestation: I reviewed the patient's lab results. Lab results narrative: CBC was reviewed and was within normal limits. Basic metabolic profile was reviewed and was within normal limits. Labs: Laboratory Results - last 24 hr 02/06/25 02/06/25 02/06/25 11:38 11:38 12:01 WBC Cancelled 7.3 Corrected WBC Cancelled RBC Cancelled 4.94 Hgb Cancelled 15.5 Hct Cancelled 44.7 MCV Cancelled 90.5 MCH Cancelled 31.4 MCHC Cancelled 34.7 RDW Std Deviation Cancelled 45.1 H RDW Coeff of Brandi Cancelled 13.7 Plt Count Cancelled TNP MPV Cancelled 10.4 Immature Gran % (Auto) Cancelled 0.100 Neut % (Auto) Cancelled 52.5 Lymph % (Auto) Cancelled 33.5 [place] % (Auto) Cancelled 9.5 Eos % (Auto) Cancelled 3.3 Baso % (Auto) Cancelled 1.1 H Absolute Neuts (auto) Cancelled 3.9 Absolute Lymphs (auto) Cancelled 2.46 Total Counted Cancelled Neutrophils % (Manual) Cancelled Band Neutrophils % Cancelled Lymphocytes % (Manual) Cancelled Monocytes % (Manual) Cancelled Eosinophils % (Manual) Cancelled Basophils % (Manual) Cancelled Metamyelocytes % Cancelled Myelocytes % Cancelled Promyelocytes % Cancelled Blast Cells % Cancelled Plasma Cell % (Manual) Cancelled Other Cells % Cancelled Nucleated RBC % Cancelled 0 Nucleated RBCs/100 WBC Cancelled Differential Comment Cancelled Diff Path Review Cancelled Hypersegmented Neuts Cancelled Atypical Lymphocytes Cancelled Reactive Lymphocytes Cancelled Smudge Cells Cancelled Toxic Granulation Cancelled Toxic Vacuolation Cancelled Dohle Bodies Cancelled Pool Rods Cancelled Platelet Estimate Cancelled ADEQUATE Plt Morphology Comment Cancelled CLUMPED RBC Morphology Cancelled Cancelled Polychromasia Cancelled Hypochromasia Cancelled Basophilic Stippling Cancelled Anisocytosis Cancelled Microcytosis Cancelled Macrocytosis Cancelled Spherocytes Cancelled Sickle Cells Cancelled Target Cells Cancelled Tear Drop Cells Cancelled Ovalocytes Cancelled Stomatocytes Cancelled [place] Bodies Cancelled Karen Cells Cancelled Bite Cells Cancelled Crenated Cell Cancelled Acanthocytes (Spur) Cancelled Rouleaux Cancelled Schistocytes Cancelled Sodium 139 Potassium 4.5 Chloride 103 Carbon Dioxide 23.0 Anion Gap 13 BUN 9 Creatinine 0.78 Estim Creat Clear Calc 122.00 Est GFR (MDRD) Non-Af 112 BUN/Creatinine Ratio 11.7 Glucose 82 Calcium 9.7 Radiography Chest X-Ray - ED: 2 View, Read by ED Physician, Read by Radiologist and No Acute Disease Diagnostic Testing: Clinical Impression(s) from Imaging Studies Chest X-Ray 02/06/25 11:45 IMPRESSION: Hyperinflation. No pulmonary infiltrate is seen. Reading Location: [id number] and lateral chest x-ray was obtained. There are 2 views. On my independent interpretation, lung ramos are clear. There is normal cardiac silhouette. Bony thorax is normal. There is no acute process noted. Radiologist also interpreted the x-ray and agrees. EKG Initial EKG: Attestation: I personally reviewed and interpreted this EKG as follows: Interpretation: Sinus Rhythm (64) and No Acute Injury Pattern Comments: EKG was obtained. On my independent interpretation, it showed a normal sinus rhythm with a rate of 64. [place] interval, QRS interval, and QTc intervals were all normal. Lamar was normal. There are no acute ST or T wave changes. Prior EKG tracings: available for review Prior: Unchanged (02/01/2025) Treatment and Re-Evaluation :: Patient was given a dose of amlodipine here. Patient's blood pressure remained stable at 142/90. Patient was advised of his findings. Patient was instructed to increase his amlodipine to 10 mg daily. Patient was given a prescription for amlodipine 10 mg. Patient was instructed to follow-up with a primary care physician in 7 to 10 days. Patient was instructed to return if worse in any way. Patient understood and was agreeable with the plan. All questions were answered. Discharge Plan Triage Chief Complaint: Hypertension ED Provider: Edin Mackay Dx/Rx/DC Orders Clinical Impression: HTN (hypertension), Tobacco use Instructions: ED Hypertension, Established Prescriptions: New amlodipine 10 mg tablet 10 mg PO DAILY Qty: 30 0RF No Action amlodipine 5 mg Tablet 5 mg PO DAILY 30 Days Qty: 30 3RF Primary Care Provider: Care Physician,No Primary Referrals: Edin Christensen MD [Med Staff - Shower Enclosure Installer] - 5-7 Days Care Physician,No Primary [Primary Care Provider] - Activity Restrictions/Additional Instructions: Increase your amlodipine to 10 mg daily. Print Language: Japanese Disposition Disposition: Home, Self Care
--- NOTE | 2025-02-06 11:22 | EKG12_ITS ---
Test Reason : hypertension Blood Pressure : */* mmHG Vent. Rate : 64 BPM Atrial Rate : 64 BPM P-R Int : 146 ms QRS Dur : 88 ms QT Int : 396 ms P-R-T Axes : 65 57 59 degrees QTcB Int : 408 ms Normal sinus rhythm with sinus arrhythmia Normal ECG Confirmed by LENIN PEREZ, AIDEE ([id number]), news assignment editor STEPHANI LEMA ([id number]) on 02/07/2025 9:27:32 AM Referred By: Confirmed By: AIDEE PHELPS MD
--- NOTE | 2025-02-06 11:45 | RAD_ITS ---
PROCEDURE: CHEST PA AND LATERAL 02/06/2025 REASON FOR EXAM: HYPERTENSION TECHNIQUE: CHEST PA AND LATERAL COMPARISON: Prior study dated January 31, 2025. FINDINGS: Hardware: None Heart: The heart size is normal. Mediastinum: The mediastinal contour is unremarkable. Lungs: Hyperinflation. Prominence of the central pulmonary arteries suggestive of possible hypertension. Bones: No acute abnormalities. RAD/Chest PA and Lateral IMPRESSION: Hyperinflation. No pulmonary infiltrate is seen. Reading Location: [id number]
[2025-02-06 12:07] LABS: Anion Gap 13 (5-15); BUN 9 mg/dL (4-19); BUN/Creat Ratio 11.7 RATIO (10-20); Calcium,Total 9.7 mg/dL (7.6-11.0); Carbon Dioxide 23.0 mmol/L (21.0-32.0); Chloride 103 mmol/L (98-108); Estimated Creatinine Clearance 122.00 ml/min (50-250); Glucose 82 mg/dL (70-99); Potassium 4.5 mmol/L (3.3-5.1)
[2025-02-06 12:09] LABS: Hematocrit 44.7 % (40-54); Hemoglobin 15.5 g/dL (13.0-16.5); Immature Granulocytes Count 0.010 X10^3/uL (0.0-0.0); Mean Corp Hgb Conc 34.7 g/dL (32-36); Mean Corpuscular Volume 90.5 fL (80-94); Mean Platelet Vol. 10.4 fl (6.2-12.0); NRBC Flagged by Analyzer 0 % (0-5); POSITIVE COUNT YES; RBC Distribution Width CV 13.7 % (11.6-14.6); RBC Distribution Width SD 45.1 fl (35.1-43.9); Red Blood Count 4.94 M/mm3 (4.6-6.2); White Blood Count 7.3 K/mm3 (4.4-11.0)
[2025-02-06 12:40] LABS: Differential Indicated SCAN CRITERIA MET
[2025-02-06 12:47] VITALS: BP 142/88; PULSE 63; RESP 18; O2SAT 100
[2025-02-06 13:44] VITALS: BP 142/90; PULSE 58; O2SAT 100
[2025-02-06 14:45] VITALS: BP 134/86; PULSE 60; RESP 16; TEMP 36.7; O2SAT 100
--- OUTSIDE RECORDS SUMMARY | 2025-02-06 17:47 | XMS RPT_ITS | CCD ---
Author Organization [facility] Care Team Providers Care Pst Manager Name Role Phone Care Physician, No Primary Primary Care Provider Unavailable Dr. Mundo Lemus DO Emergency Provider Slick KONG, Dr. Rico Admit Provider Dr. Jacky Montelongo DO Attending Provider Slick KONG, Dr. Rico Other Provider Nicolas PEREZ, Dr. Wesley Attending Provider Jacky Montelongo Consulting Unavailable Jacky Montelongo Attending Unavailable Care Physician, No Primary Primary Care Unava ilable Jacky Montelongo Admitting Unavailable Maryjane Valenzuela Attending Unavailable Maryjane Valenzuela Consulting Unavailable Jacky Montelongo Consulting Unavailable Care Physician, No Primary Primary Care Unava ilable Maryjane Valenzuela Attending Unavailable Jacky Montelongo Admitting Unavailable Giovani Fong Attending Unavailable Dr. Maryjane Valenzuela MD Other Provider Dr. Giovani Fong MD Attending Provider [phone] Dr. Edin Mackay DO Emergency Provider Allergies Allergy Classification Reported Allergen(s) Allergy Type Date of Onset Reaction(s) Facility (3 sources) Penicillins Allergy to substance 01-31-2025 Rash [facility] (1 source) Penicillins Drug allergy (disorder) 01-31-2025 [facility] Repository Medications Current Medications Medication Drug Class(es) Dates Sig (Normalized) Sig (Original) amLODIPine 10 mg oral tablet (3 sources) Dihydropyridine Calcium Channel Giovanny Start: 02-06-2025 take 1 tablet by mouth once daily Amlodipine 10 mg tablet Active 10 mg PO DAILY 30 0 February 06, 2025 12:00am Start: 02-01-2025 take 1 tablet by carito th once daily Amlodipine 5 mg Tablet Active 5 mg PO DAILY 3 February 01, 2025 12:00am Bunn (Nk) (1 source) Start: 01-31-2025 Bunn (Nk) A ctive January 31, 2025 12:00am Completed/Discontinued Medications Medication Drug Class(es) Dates Sig (Normalized) Sig (Original) cyclobenzaprine hydrochloride 10 mg oral tablet (3 sources) Muscle Relaxant Start: 05-21-2016 End: 01-31-2025 take 1 tablet by mouth three times daily as needed for muscle spasms Cyclobenzaprine 10 MG tablet Discontinued 10 mg PO THREE TIMES A DAY as needed for Muscle Spasm May 21, 2016 1:00am January 31, 2025 9:50am naproxen 500 mg oral tablet (3 sources) Nonsteroidal Anti-inflammatory Drug Start: 05-21-2016 End: 01-31-2025 take 1 tablet by mouth twice daily as needed Naproxen 500 MG tablet Discontinued 500 mg PO TWICE DAILY NEEDED May 21, 2016 1:00am January 31, 2025 9:50am Problems Problem Classification Problem Date Documented Da te Episodic/Chronic Essential hypertension (4 sources) Essential (primary) hypertension; Translations: [Hypertensive disorder] Onset: 02-02-2025 02-06-2025 Chronic Nonspecific chest pain (10 sources) Chest pain; Translations: [Chest pain, unspecified] Onset: 02-02-2025 01-31-2025 Episodic Residual codes; unclassified (2 sources) Tobacco use; Translations: [Tobacco use] Onset: 02-02-2025 Episodic Residual codes; unclassified (2 sources) Tobacco use and exposure - finding; Translations: [Tobacco use] 02-06-2025 Episodic Results Test Name Value Interpretation Reference Range Facility Absolute lymphocyte countOrd ered By: Edin Mackay on 02-06-2025 Lymphocytes Auto (Unsp spec) [#/Vol] 2.46 10*3/uL 0.83-4.51 [facility] Absolute neutrophil countOrd ered By: Edin Mackay on 02-06-2025 Neutrophils (Bld) [#/Vol] 3.9 10*3/uL 2.0-7.7 [facility] Anion gap in Serum or Plasma Ordered By: Edin Mackay on 08-06-2025 Anion gap [Moles/Vol] 13 mmol/L 5-15 [facility] Automated lymphocyte count a s percentage of total leukocytesOrdered By: Edin Mackay on 02-06-2025 Lymphocytes/100 WBC Auto (Unsp spec) 33.5 % 19-41 [facility] BUN/creatinine ratioOrdered By: Edin Mackay on 02-06-2025 Urea nitrogen/Creatinine [Mass ratio] 11.7 mg/mg 10-20 [facility] Basophil percentageOrdered B y: Edin Mackay on 02-06-2025 Basophils/100 WBC (Bld) 1.1 % High 0-[address] [facility] Carbon dioxide, total [Moles /volume] in Central venous bloodOrdered By: Edin Mackay on 02-06-2025 CO2 [Moles/Vol] 23.0 mmol/L 21.0-32.0 [facility] Chloride assayOrdered By: Chase Mackay on 02-06-2025 Chloride [Moles/Vol] 103 mmol/L 98-108 [facility] Eosinophil percentageOrdered By: Edin Mackay on 02-06-2025 Eosinophils/100 WBC (Bld) 3.3 % 0-5 [facility] Erythrocyte distribution wid th ratioOrdered By: Edin Mackay on 02-06-2025 Erythrocyte distribution width (RBC) [Ratio] 13.7 % 11.6-14.6 [facility] Erythrocyte distribution wid th standard deviationOrdered By: Edin Mackay on 02-06-2025 Erythrocyte distribution width (RBC) [Ratio] 45.1 fl High 35.1-43.9 [facility] Glomerular filtration rate ( GFR) estimation/1.73 sq m using serum, plasma, or whole bOrdered By: Edin Mackay on 02-06-2025 GFR/1.73 sq M.predicted among non-blacks MDRD (S/P/Bld) [Vol rate/Area] 112 mL/min/{1.73_m2} >60 [facility] Comment on above: mL/min/1.73m2 CKD-EP I Creatinine Equation (2020) Hematocrit Auto (Bld) [Volum e fraction]Ordered By: Edin Mackay on 02-06-2025 Hematocrit (Bld) [Volume fraction] 44.7 % 40-54 [facility] Hemoglobin measurementOrdere d By: Edin Mackay on 02-06-2025 Hemoglobin (Bld) [Mass/Vol] 15.5 g/dL 13.0-16.5 [facility] Immature granulocytes/100 WB C Auto (Bld)Ordered By: Edin Mackay on 02-06-2025 Immature granulocytes/100 WBC (Bld) 0.100 % 0.0-0.9 [facility] Comment on above: IG% - Immature Granu locytes (promyelocytes, myelocytes and metamyelocytes) > 1% indicates that a LEFT SHIFT is Present. MCV (mean corpuscular volume ) determinationOrdered By: Edin Mackay on 02-06-2025 MCV (RBC) [Entitic vol] 90.5 fL 80-[address] [facility] Mean corpuscular hemoglobin (MCH) determinationOrdered By: Edin Mackay on 02-06-2025 MCH (RBC) [Entitic mass] 31.4 pg 27.0-32.0 [facility] Mean corpuscular hemoglobin concentration (MCHC) determinationOrdered By: Edin Mackay on 02-06-2025 MCHC (RBC) [Mass/Vol] 34.7 g/dL 32-36 [facility] Mean platelet volume determi nationOrdered By: Edin Mackay on 02-06-2025 Platelet mean volume (Bld) [Entitic vol] 10.4 fL 6.2-12.0 [facility] Monocyte percentageOrdered B y: Edin Mackay on 02-06-2025 Monocytes/100 WBC (Bld) 9.5 % 0-[address] [facility] Neutrophil percentageOrdered By: Edin Mackay on 02-06-2025 Neutrophils/100 WBC (Bld) 52.5 % 47-70 [facility] Nucleated red blood cell per centageOrdered By: Edin Mackay on 02-06-2025 Nucleated RBC/100 WBC (Bld) [Ratio] 0 % 0-5 [facility] Platelet countOrdered By: Chase Mackay on 02-06-2025 Platelet count TNP [facility] Comment on above: Test not performed Platelet estimateOrdered By: Edin Mackay on 02-06-2025 Platelets LM Ql (Bld) ADEQUATE ADEQ [facility] Platelet morphologyOrdered B y: Edin Mackay on 02-06-2025 Platelet morphology finding Nom (Bld) CLUMPED [facility] Potassium measurement (mass/ volume)Ordered By: Edin Mackay on 02-06-2025 Potassium (Unsp spec) [Mass/Vol] 4.5 mmol/L 3.3-5.1 [facility] Comment on above: Hemolysis present, R esults could be affected. RBC Auto (Bld) [#/Vol]Ordere d By: Edin Mackay on 02-06-2025 RBC (Bld) [#/Vol] 4.94 10*6/uL 4.6-6.2 [facility] Serum creatinine measurement (mass/volume)Ordered By: Edin Mackay on 02-06-2025 Creatinine [Mass/Vol] 0.78 mg/dL 0.70-1.20 [facility] Serum glucose measurement (m ass/volume)Ordered By: Edin Mackay on 02-06-2025 Glucose [Mass/Vol] 82 mg/dL 70-99 [facility] Serum or plasma calcium gómez urement (mass/volume)Ordered By: Edin Mackay on 02-06-2025 Calcium [Mass/Vol] 9.7 mg/dL 7.6-11.0 [facility] Serum or plasma urea nitroge n measurement (mass/volume)Ordered By: Edin Mackay on 02-06-2025 Urea nitrogen [Mass/Vol] 9 mg/dL 4-19 [facility] Sodium levelOrdered By: Edin Mackay on 02-06-2025 Sodium [Moles/Vol] 139 mmol/L 133-145 [facility] White blood cell (WBC) count Ordered By: Edin Mackay on 02-06-2025 WBC (Bld) [#/Vol] 7.3 10*3/uL 4.4-11.0 [facility] 12 Lead EKGon 02-01-2025 12 Lead EKG [facility] [address] [place] [address] 12 Lead EKG 02/01/25 0542 MR#: [id number] Acct: [id number] Name: JANIYA BETANCUR Rep #: [id number] : 1980 44 From: Giovani Fong MD Attending Dr: Dr. Maryjane Valenzuela MD Status: ADM SUNNI Ordering Dr: Jacky Montelongo DO Date: 02/01/25 Location: [facility] Sex: M C Admitted: 01/31/25 Test Reason : AM EKG Blood Pressure : */* mmHG Vent. Rate : 64 BPM Atrial Rate : 64 BPM P-R Int : 144 ms QRS Dur : 88 ms QT Int : 410 ms P-R-T Axes : 78 73 69 degrees QTcB Int : 422 ms Normal sinus rhythm Normal ECG When compared with ECG of 31-Jan-2025 09:41, MANUAL COMPARISON REQUIRED DATA IS UNCONFIRMED Confirmed by LENIN PEREZ, GIOVANI ([id number]), desk editor MARLON ROONEY ([id number]) on 02/01/2025 10:56:53 AM Referred By: SLIKC Confirmed By: GIOVANI FONG MD 02/01/25 1056 Date Giovani Fong MD CC: Dr. Jacky Montelongo DO; Dr. Maryjane Valenzuela MD; No Primary Care Physician Signed Normal [facility] Anion gap in Serum or Plasma Ordered By: Jacky Montelongo on 02-01-2025 Anion gap [Moles/Vol] 11 mmol/L - [facility] BUN/creatinine ratioOrdered By: Jacky Montelongo on 02-01-2025 Urea nitrogen/Creatinine [Mass ratio] 15.2 mg/mg - [facility] Basic Metabolic Profile (BMP )on 02-01-2025 BUN/CRE 15.2 RATIO Normal - [facility] Comment on above: Performed By: #### L 501.4021 #### [facility] [address] [place], [place], [address] Calcium [Mass/Vol] 9.0 mg/dL Normal 7.6-11.0 [facility] Comment on above: Performed By: #### L [id number] #### [facility] [address] [place], [address] Chloride [Moles/Vol] 102 mmol/L Normal 98-108 [facility] Comment on above: Performed By: #### L [id number] #### [facility] [address] [place], [address] CO2 [Moles/Vol] 24.4 mmol/L Normal 21.0-32.0 [facility] Comment on above: Performed By: #### L [id number] #### [facility] [address] [place], [address] Creatinine [Mass/Vol] 0.84 mg/dL Normal 0.70-1.20 [facility] Comment on above: Performed By: #### L [id number] #### [facility] [address] [place], [address] ECRCL 112.00 ml/min Normal 50-250 [facility] Comment on above: Performed By: #### L [id number] #### [facility] [address] [place], [address] GAP 11 Normal 5-15 [facility] Comment on above: Performed By: #### L [id number] #### [facility] [address] [place], [address] GFR/1.73 sq M.predicted among non-blacks MDRD (S/P/Bld) [Vol rate/Area] 109 mL/min/{1.73_m2} Normal >60 [facility] Comment on above: Result Comment: mL/m in/1.73m2 CKD-EPI Creatinine Equation (2020) Performed By: #### L [id number] #### [facility] [address] [place], [address] Glucose [Mass/Vol] 87 mg/dL Normal 70-99 [facility] Comment on above: Performed By: #### L [id number] #### [facility] [address] [place], [address] Potassium [Moles/Vol] 4.1 mmol/L Normal 3.3-5.1 [facility] Comment on above: Performed By: #### L [id number] #### [facility] [address] [place], [address] Sodium [Moles/Vol] 138 mmol/L Normal 133-145 [facility] Comment on above: Performed By: #### L [id number] #### [facility] [address] [place], [address] Urea nitrogen [Mass/Vol] 13 mg/dL Normal 4-19 [facility] Comment on above: Performed By: #### L [id number] #### [facility] [address] [place], [address] CBC-Complete Blood Cnt No Di ffon 02-01-2025 Erythrocyte distribution width (RBC) [Ratio] 13.3 % Normal 11.6-14.6 [facility] Comment on above: Performed By: #### L 500.4100, L500.2500, L100.0500 #### [facility] [address] [place], [address] Hematocrit (Bld) [Volume fraction] 43.1 % Normal 40-54 [facility] Comment on above: Performed By: #### L 500.4100, L500.2500, L100.0500 #### [facility] [address] [place], [address] Hemoglobin (Bld) [Mass/Vol] 15.1 g/dL Normal 13.0-16.5 [facility] Comment on above: Performed By: #### L 500.4100, L500.2500, L100.0500 #### [facility] [address] [place], [address] MCH (RBC) [Entitic mass] 31.1 pg Normal 27.0-32.0 [facility] Comment on above: Performed By: #### L 500.4100, L500.2500, L100.0500 #### [facility] [address] [place], [address] MCHC (RBC) [Mass/Vol] 35.0 g/dL Normal 32-36 [facility] Comment on above: Performed By: #### L 500.4100, L500.2500, L100.0500 #### [facility] [address] [place], [address] MCV (RBC) [Entitic vol] 88.7 fL Normal 80-[address] [facility] Comment on above: Performed By: #### L 500.4100, L500.2500, L100.0500 #### [facility] [address] [place], [address] Platelet mean volume (Bld) [Entitic vol] 10.5 fL Normal 6.2-12.0 [facility] Comment on above: Performed By: #### L 500.4100, L500.2500, L100.0500 #### [facility] [address] [place], [address] Platelets (Bld) [#/Vol] 214 10*3/uL Normal 150-450 [facility] Comment on above: Performed By: #### L 500.4100, L500.2500, L100.0500 #### [facility] [address] [place], [address] RBC (Bld) [#/Vol] 4.86 10*6/uL Normal 4.6-6.2 [facility] Comment on above: Performed By: #### L 500.4100, L500.2500, L100.0500 #### [facility] [address] [place], [address] RDW SD 43.6 fl Normal 35.1-43.9 [facility] Comment on above: Performed By: #### L 500.4100, L500.2500, L100.0500 #### [facility] [address] [place], [address] WBC (Bld) [#/Vol] 8.2 10*3/uL Normal 4.4-11.0 [facility] Comment on above: Performed By: #### L 500.4100, L500.2500, L100.0500 #### [facility] [address] [place], [address] Calculated very low density lipoprotein (VLDL) cholesterol measurementOrdered By: Jacky Montelongo on 02-01-2025 Calculated very low density lipoprotein (VLDL) cholesterol measurement 9 mg/dL 5-40 [facility] Carbon dioxide, total [Moles /volume] in Central venous bloodOrdered By: Jacky Montelongo on 02-01-2025 CO2 [Moles/Vol] 24.4 mmol/L 21.0-32.0 [facility] Chloride assayOrdered By: Stan Montelongo on 02-01-2025 Chloride [Moles/Vol] 102 mmol/L 98-108 [facility] Discharge Instructionon Discharge Instruction [facility] Medical Records Department [address] [place] [address] Instructions for Home/Discharge Instructions 02/01/25 1441 MR#: [id number] Acct: [id number] Name: JANIYA BETANCUR Rep #: [id number] : 1980 44 From: Maryjane Valenzuela MD PCP: Geo Physician,No Primary Status:ADM SUNNI Discharge Instructions DC O2, CPAP, BIPAP needs Home O2 Discharge instructions: No Dressing / Incision Discharge Activity: - (Increase activity as tolerated) Follow Up Care Test Results: Test results from this visit will be discussed in further detail at your follow-up appointment, if applicable. Discharge Plan Admission Admit Date/Time: 01/31/25 14:16 Primary Reason for Your Visit: Chest pain Attending Provider: Maryjane Valenzuela Primary Care Provider: Care Physician,No Primary Consulting Providers: Jacky Montelongo Instructions Patient Instructions: Quitting Smoking, Coping with Smoking Withdrawal, ED How to Quit Smoking Additional Instructions / Restrictions: You will be discharged on 5 mg of amlodipine It is recommended that you establish with PCP upon discharge, list will be provided for you so you can establish care Discharge Orders/Prescriptions Prescriptions: New amlodipine 5 mg Tablet 5 mg PO DAILY 30 Days Qty: 30 3RF Referrals / Follow Up: Care Physician,No Primary [Primary Care Provider] - ( -If you do not have a primary care physician of list of local primary care physicians can be provided for you upon discharge. Please ask for this list prior to discharge ) Disposition Disposition (needs filled in before D/C Order can be placed): Home, Self Care 02/01/25 1450 Maryjane Valenzuela MD CC: Dr. Jacky Montelongo DO; No Primary Care Physician Signed Normal [facility] Electrocardiogram reportOrde red By: Giovani Fong on 02-01-2025 EKG study [facility] Cardi[facility] Services [address] [place] [address] 12 Lead EKG 02/01/25 0542 MR#: [id number] Acct: [id number] Name: JANIYA BETANCUR Rep #:[id number] : 1980 44 From: Giovani Fong MD Attending Dr: Dr. Maryjane Valenzuela MD Status: ADM SUNNI Ordering Dr: Jacky Montelongo DO Da te: 02/01/25 Location: [facility] Sex: M C Admitted: 01/31/25 Test Reason : AM EKG Blood Pressure : */* mmHG Vent. Rate : 64 BPM Atrial Rate : 64 BPM P-R Int : 144 ms QRS Dur : 88 ms QT Int : 410 ms P-R-T Axes : 78 73 69 degrees QTcB Int : 422 ms Normal sinus rhythm Normal ECG When compared with ECG of 31-Jan-2025 09:41, MANUAL COMPARISON REQUIRED DATA IS UNCONFIRMED Confirmed by GIOVANI FONG MD ([id number]), desk editor MARLON ROONEY ([id number]) on 02/01/2025 10:56:53 AM Referred By: SLICK Confirmed By: GIOVANI FONG MD 02/01/25 1056 Date _ Giovani Fong MD CC: Dr. Jacky Montelongo, DO; Dr. Maryjane Valenzuela MD; No Primary Care Physician ~ Signed [facility] Other Phone: Erythrocyte distribution wid th ratioOrdered By: Jacky Montelongo on 02-01-2025 Erythrocyte distribution width (RBC) [Ratio] 13.3 % 11.6-14.6 [facility] Erythrocyte distribution wid th standard deviationOrdered By: Jacky Montelongo on 02-01-2025 Erythrocyte distribution width (RBC) [Ratio] 43.6 fl 35.1-43.9 [facility] Glomerular filtration rate ( GFR) estimation/1.73 sq m using serum, plasma, or whole bOrdered By: Jacky Montelongo on 02-01-2025 GFR/1.73 sq M.predicted among non-blacks MDRD (S/P/Bld) [Vol rate/Area] 109 mL/min/{1.73_m2} >60 [facility] Comment on above: mL/min/1.73m2 CKD-EP I Creatinine Equation (2020) Hematocrit Auto (Bld) [Volum e fraction]Ordered By: Jacky Montelongo on 02-01-2025 Hematocrit (Bld) [Volume fraction] 43.1 % 40-54 [facility] Hemoglobin measurementOrdere d By: Jacky Montelongo on 02-01-2025 Hemoglobin (Bld) [Mass/Vol] 15.1 g/dL 13.0-16.5 [facility] LDL calc ser/plasOrdered By: Jacky Montelongo on 02-01-2025 Cholesterol in LDL [Mass/Vol] 84 mg/dL [facility] Comment on above: Sshmjgmsao=692-888 m g/dL & Higher Tbye=546 mg/dL or greaterFriedwald Equation for LDL-C Lipid Profileon 02-01-2025 CHOL:HDL 2.35 Normal [facility] Comment on above: Performed By: #### L [id number] #### [facility] [address] [place] [address]. [place], [address] Cholesterol [Mass/Vol] 162 mg/dL Normal <=200 [facility] Comment on above: Result Comment: Chol esterol level, Desirable <200 mg/dL Borderline high cholesterol 200-239 mg/dL High cholesterol >=240 mg/dL Recommendations of the NCEP Adult Treatment Panel for the following risk-cutoff thresholds for the [place] population. Performed By: #### L [id number] #### [facility] [address] [place], [address] Cholesterol in HDL [Mass/Vol] 69 mg/dL Normal [facility] Comment on above: Result Comment: Rosalinda onal Cholesterol Education Program (NCEP) guidelines: <40 mg/dL: Low HDL-cholesterol (major risk factor for CHD) >= 60 mg/dL: High HDL-cholesterol (negative risk factor for CHD) HDL-cholesterol is affected by a number of factors, e.g. smoking, exercise, hormones, sex and age. Performed By: #### L [id number] #### [facility] [address] [place], [address] Cholesterol in LDL [Mass/Vol] 84 mg/dL Normal [facility] Comment on above: Result Comment: Bord kbpxin=156-931 mg/dL Higher Yqmg=759 mg/dL or greater Friedwald Equation for LDL-C Performed By: #### L [id number] #### [facility] [address] [place], [address] Cholesterol in VLDL [Mass/Vol] 9 mg/dL Normal 5-40 [facility] Comment on above: Performed By: #### L [id number] #### [facility] [address] [place], [address] Triglyceride [Mass/Vol] 44 mg/dL Normal [facility] Comment on above: Result Comment: The drugs N-Acetylcysteine and Metamizole may falsely depress this assay. Normal range: <150 mg/dL Borderline High: 150-199 mg/dL High: 200-499 mg/dL Very High: >500 mg/dL Performed By: #### L [id number] #### [facility] [address] [place], [address] MCV (mean corpuscular volume ) determinationOrdered By: Jacky Montelongo on 02-01-2025 MCV (RBC) [Entitic vol] 88.7 fL 80-94 [facility] Mean corpuscular hemoglobin (MCH) determinationOrdered By: Jacky Montelongo on 02-01-2025 MCH (RBC) [Entitic mass] 31.1 pg 27.0-32.0 [facility] Mean corpuscular hemoglobin concentration (MCHC) determinationOrdered By: Jacky Montelongo on 02-01-2025 MCHC (RBC) [Mass/Vol] 35.0 g/dL 32-36 [facility] Mean platelet volume determi nationOrdered By: Jacky Montelongo on 02-01-2025 Platelet mean volume (Bld) [Entitic vol] 10.5 fL 6.2-12.0 [facility] Platelet countOrdered By: Stan Montelongo on 02-01-2025 Platelets (Bld) [#/Vol] 214 10*3/uL 150-450 [facility] Potassium measurement (mass/ volume)Ordered By: Jacky Montelongo on 02-01-2025 Potassium (Unsp spec) [Mass/Vol] 4.1 mmol/L 3.3-5.1 [facility] RBC Auto (Bld) [#/Vol]Ordere d By: Jacky Montelongo on 02-01-2025 RBC (Bld) [#/Vol] 4.86 10*6/uL 4.6-6.2 [facility] Screening total cholesterol/ high density lipoprotein (HDL) cholesterol ratioOrdered By: Jacky Montelongo on 02-01-2025 Cholesterol.total/Choles terol in HDL [Mass ratio] 2.35 {ratio} [facility] Serum creatinine measurement (mass/volume)Ordered By: Jacky Montelongo on 02-01-2025 Creatinine [Mass/Vol] 0.84 mg/dL 0.70-1.20 [facility] Serum glucose measurement (m ass/volume)Ordered By: Jacky Montelongo on 02-01-2025 Glucose [Mass/Vol] 87 mg/dL 70-99 [facility] Serum or plasma calcium gómez urement (mass/volume)Ordered By: Jacky Montelongo on 02-01-2025 Calcium [Mass/Vol] 9.0 mg/dL 7.6-11.0 [facility] Serum or plasma cholesterol in HDL measurement (mass/volume)Ordered By: Jacky Montelongo on 02-01-2025 Cholesterol in HDL [Mass/Vol] 69 mg/dL >40 [facility] Comment on above: National Cholesterol Education Program (NCEP) guidelines:<40 mg/dL: Low HDL-cholesterol (major risk factor for CHD)>= 60 mg/dL: High HDL-cholesterol (negative risk factor for CHD)HDL-cholesterol is affected by a number of factors, e.g. smoking, exercise, hormones, sex and age. Serum or plasma cholesterol measurement (mass/volume)Ordered By: Jacky Montelongo on 02-01-2025 Cholesterol [Mass/Vol] 162 mg/dL <201 [facility] Comment on above: Cholesterol level, D esirable <200 mg/dLBorderline high cholesterol 200-239 mg/dLHigh cholesterol >=240 mg/dLRecommendations of the NCEP Adult Treatment Panel for the following risk-cutoff thresholds for the [place] population. Serum or plasma urea nitroge n measurement (mass/volume)Ordered By: Jacky Montelongo on 02-01-2025 Urea nitrogen [Mass/Vol] 13 mg/dL 4-19 [facility] Sodium levelOrdered By: Timi Montelongo on 02-01-2025 Sodium [Moles/Vol] 138 mmol/L 133-145 [facility] Stress Reporton 02-01-2025 Stress Report [facility] Cardiovascular Services [address] [place] [address] MR#: [id number] Acct: [id number] Name: JANIYA BETANCUR Rep #: [id number] : 1980 44 From: Giovani Fong MD Primary Care: Care Physician,No Primary Status: DIS SUNNI Referring Dr: Sex: M C Stress Test Report Exercise myocardial perfusion stress test. 44-year-old male patient with chest pain Stress protocol: Resting EKG demonstrates normal sinus rhythm with a heart rate of 60 bpm resting blood pressure is 118/82 mmHg. The patient exercised according to the regular Aldo protocol for a total duration of 11 minutes and 15 seconds attaining a maximum heart rate of 141 bpm which was 80% of maximum predicted heart rate; the maximum workload was 13.4 metabolic equivalents. At rest there were no ST or T wave changes noted to suggest ischemia and at peak exercise upsloping ST changes only were noted which did not meet the criteria for ischemia. No clinical angina was noted the test was terminated due to the target heart rate being achieved/fatigue. The peak blood pressure was 178/76 mmHg. Rate-pressure product was 25,098. Myocardial perfusion protocol. 12 mCi of technetium 99m sestamibi was injected at rest. The patient exercised according to regular Aldo protocol for total duration of 11 minutes and 15 seconds and at peak exercise 34.7 mCi of technetium 99m sestamibi was injected stress images were obtained stress and rest images were reconstructed in comparing the short axis vertical long and horizontal long axis. Gated images were also obtained. Perfusion SPECT analysis: Review of the stress images demonstrate normal uptake of tracer noted in all areas of the myocardium. The resting images similarly demonstrate normal uptake of tracer noted in all areas of the myocardium. No areas of reversibility are noted to suggest ischemia no previous infarct was noted. Gated SPECT analysis: The gated ejection fraction is [65%]. Conclusion: [Normal] exercise myocardial perfusion stress test at a good workload [Preserved] ejection fraction. 02/02/25918 Date Giovani Fong MD CC: Dr. Jacky Montelongo DO; Dr. Mundo Lemus DO; Dr. Maryjane Valenzuela MD; No Primary Care Physician Date Dictated: 02/01/25 121 Date Transcribed: 02/01/251212 Insurance Verification Clerk: Signed Normal [facility] Triglycerides measurementOrd ered By: Jacky Montelongo on 02-01-2025 Triglyceride [Mass/Vol] 44 mg/dL <[address] [facility] Comment on above: The drugs N-Acetylcy steine and Metamizole may falsely depress this assay. Normal range: <150 mg/dLBorderline High: 150-199 mg/dLHigh: 200-499 mg/dLVery High: >500 mg/dL White blood cell (WBC) count Ordered By: Jacky Montelongo on 02-01-2025 WBC (Bld) [#/Vol] 8.2 10*3/uL 4.4-11.0 [facility] 12 Lead EKGon 01-31-2025 12 Lead EKG [facility] Cardiovascular Services [address] [place] [address] 12 Lead EKG 01/31/25 0941 MR#: [id number] Acct: [id number] Name: JANIYA BETANCUR Rep #: [id number] : 1980 44 From: Giovani Fong MD Attending Dr: Dr. Maryjane Valenzuela MD Status: DIS SUNNI Ordering Dr: Mundo Lemus DO Date: 5 Location: [facility] Sex: M C Admitted: 01/31/25 Test Reason : CP Blood Pressure : */* mmHG Vent. Rate : 78 BPM Atrial Rate : 78 BPM P-R Int : 130 ms QRS Dur : 96 ms QT Int : 374 ms P-R-T Axes : 76 59 65 degrees QTcB Int : 426 ms Normal sinus rhythm Normal ECG Confirmed by LENIN PEREZ, GIOVANI ([id number]), desk editor MARLON ROONEY ([id number]) on 02/04/2025 8:18:21 AM Referred By: AK Confirmed By: GIOVANI FONG MD 02/04/2518 Date Giovani Fong MD CC: Dr. Mundo Lemus DO; Dr. Maryjane Valenzuela MD; No Primary Care Physician Signed Normal [facility] Absolute lymphocyte countOrd ered By: Mundo Lemus on 01-31-2025 Lymphocytes Auto (Unsp spec) [#/Vol] 3.00 10*3/uL 0.83-4.51 [facility] Absolute neutrophil countOrd ered By: Mundo Lemus on 01-31-2025 Neutrophils (Bld) [#/Vol] 4.2 10*3/uL 2.0-7.7 [facility] Activated partial thrombopla stin time (aPTT) in platelet poor plasma by coagulation aOrdered By: Mundo Lemus on 01-31-2025 aPTT Coag (PPP) [Time] 26.9 s 24.1-36.2 [facility] Anion gap in Serum or Plasma Ordered By: Mundo Lemus on 01-31-2025 Anion gap [Moles/Vol] 13 mmol/L 5-15 [facility] Automated lymphocyte count a s percentage of total leukocytesOrdered By: Zion Mariah on 01-31-2025 Lymphocytes/100 WBC Auto (Unsp spec) 36.5 % -41 [facility] BUN/creatinine ratioOrdered By: [facility] on 01-31-2025 Urea nitrogen/Creatinine [Mass ratio] 8.8 mg/mg Low 10-20 [facility] Basic Metabolic Profile (BMP )on 01-31-2025 BUN/CRE 8.8 RATIO Low 10-20 [facility] Comment on above: Performed By: #### L 503.7505, L501.4021, L100.0100, L500.2500 #### [facility] [address] [place], [address] Calcium [Mass/Vol] 9.0 mg/dL Normal 7.6-11.0 [facility] Comment on above: Performed By: #### L 503.7505, L501.4021, L100.0100, L500.2500 #### [facility] [address] [place], [address] Chloride [Moles/Vol] 103 mmol/L Normal 98-108 [facility] Comment on above: Performed By: #### L 503.7505, L501.4021, L100.0100, L500.2500 #### [facility] [address] [place], [address] CO2 [Moles/Vol] 23.8 mmol/L Normal 21.0-32.0 [facility] Comment on above: Performed By: #### L 503.7505, L501.4021, L100.0100, L500.2500 #### [facility] [address] [place], [address] Creatinine [Mass/Vol] 0.82 mg/dL Normal 0.70-1.20 [facility] Comment on above: Performed By: #### L 503.7505, L501.4021, L100.0100, L500.2500 #### [facility] [address] [place], [address] ECRCL 116.41 ml/min Normal 50-250 [facility] Comment on above: Performed By: #### L 503.7505, L501.4021, L100.0100, L500.2500 #### [facility] [address] [place], [address] GAP 13 Normal 5-15 [facility] Comment on above: Performed By: #### L 503.7505, L501.4021, L100.0100, L500.2500 #### [facility] [address] [place], [address] GFR/1.73 sq M.predicted among non-blacks MDRD (S/P/Bld) [Vol rate/Area] 110 mL/min/{1.73_m2} Normal >60 [facility] Comment on above: Result Comment: mL/m in/1.73m2 CKD-EPI Creatinine Equation (2020) Performed By: #### L 503.7505, L501.4021, L100.0100, L500.2500 #### [facility] [address] [place], [address] Glucose [Mass/Vol] 76 mg/dL Normal 70-99 [facility] Comment on above: Performed By: #### L 503.7505, L501.4021, L100.0100, L500.2500 #### [facility] [address] [place], [address] Potassium [Moles/Vol] 3.7 mmol/L Normal 3.3-5.1 [facility] Comment on above: Performed By: #### L 503.7505, L501.4021, L100.0100, L500.2500 #### [facility] [address] [place], [address] Sodium [Moles/Vol] 140 mmol/L Normal 133-145 [facility] Comment on above: Performed By: #### L 503.7505, L501.4021, L100.0100, L500.2500 #### [facility] [address] [place], [address] Urea nitrogen [Mass/Vol] 7 mg/dL Normal 4-19 [facility] Comment on above: Performed By: #### L 503.7505, L501.4021, L100.0100, L500.2500 #### [facility] [address] [place], [address] Basophil percentageOrdered B y: Mundo Lemus on 01-31-2025 Basophils/100 WBC (Bld) 0.9 % 0-[address] [facility] CBC W/Diff, Automatedon 07 Absolute Lymph 3.00 X10 3/uL Normal 0.83-4.51 [facility] Comment on above: Performed By: #### L 503.7505, L501.4021, L100.0100, L500.2500 #### [facility] [address] [place], [address] Absolute Neut 4.2 X10 3/uL Normal 2.0-7.7 [facility] Comment on above: Performed By: #### L 503.7505, L501.4021, L100.0100, L500.2500 #### [facility] [address] [place], [address] Basophils/100 WBC (Bld) 0.9 % Normal 0-[address] [facility] Comment on above: Performed By: #### L 503.7505, L501.4021, L100.0100, L500.2500 #### [facility] [address] [place], [address] Eosinophils/100 WBC (Bld) 2.7 % Normal 0-5 [facility] Comment on above: Performed By: #### L 503.7505, L501.4021, L100.0100, L500.2500 #### [facility] [address] [place], [address] Erythrocyte distribution width (RBC) [Ratio] 13.7 % Normal 11.6-14.6 [facility] Comment on above: Performed By: #### L 503.7505, L501.4021, L100.0100, L500.2500 #### [facility] [address] [place], [address] Hematocrit (Bld) [Volume fraction] 44.4 % Normal 40-54 [facility] Comment on above: Performed By: #### L 503.7505, L501.4021, L100.0100, L500.2500 #### [facility] [address] [place], [address] Hemoglobin (Bld) [Mass/Vol] 15.3 g/dL Normal 13.0-16.5 [facility] Comment on above: Performed By: #### L 503.7505, L501.4021, L100.0100, L500.2500 #### [facility] [address] [place], [address] IG% 0.100 Normal 0.0-0.9 [facility] Comment on above: Result Comment: IG% - Immature Granulocytes (promyelocytes, myelocytes and metamyelocytes) > 1% indicates that a LEFT SHIFT is Present. Performed By: #### L 503.7505, L501.4021, L100.0100, L500.2500 #### [facility] [address] [place], [address] Lymphocytes/100 WBC (Bld) 36.5 % Normal 19-41 [facility] Comment on above: Performed By: #### L 503.7505, L501.4021, L100.0100, L500.2500 #### [facility] [address] [place], [address] MCH (RBC) [Entitic mass] 30.9 pg Normal 27.0-32.0 [facility] Comment on above: Performed By: #### L 503.7505, L501.4021, L100.0100, L500.2500 #### [facility] [address] [place], [address] MCHC (RBC) [Mass/Vol] 34.5 g/dL Normal 32-36 [facility] Comment on above: Performed By: #### L 503.7505, L501.4021, L100.0100, L500.2500 #### [facility] [address] [place], [address] MCV (RBC) [Entitic vol] 89.7 fL Normal 80-[address] [facility] Comment on above: Performed By: #### L 503.7505, L501.4021, L100.0100, L500.2500 #### [facility] [address] [place], [address] Monocytes/100 WBC (Bld) 9.4 % Normal 0-[address] [facility] Comment on above: Performed By: #### L 503.7505, L501.4021, L100.0100, L500.2500 #### [facility] [address] [place], [address] Neutrophils/100 WBC (Bld) 50.4 % Normal 47-70 [facility] Comment on above: Performed By: #### L 503.7505, L501.4021, L100.0100, L500.2500 #### [facility] [address] [place], [address] Nucleated RBC (Bld) [#/Vol] 0 10*3/uL Normal 0-5 [facility] Comment on above: Performed By: #### L 503.7505, L501.4021, L100.0100, L500.2500 #### [facility] [address] [place], [address] Platelet mean volume (Bld) [Entitic vol] 10.4 fL Normal 6.2-12.0 [facility] Comment on above: Performed By: #### L 503.7505, L501.4021, L100.0100, L500.2500 #### [facility] [address] [place], [address] Platelets (Bld) [#/Vol] 230 10*3/uL Normal 150-450 [facility] Comment on above: Performed By: #### L 503.7505, L501.4021, L100.0100, L500.2500 #### [facility] [address] [place], [address] RBC (Bld) [#/Vol] 4.95 10*6/uL Normal 4.6-6.2 [facility] Comment on above: Performed By: #### L 503.7505, L501.4021, L100.0100, L500.2500 #### [facility] [address] [place], [address] RDW SD 45.1 fl High 35.1-43.9 [facility] Comment on above: Performed By: #### L 503.7505, L501.4021, L100.0100, L500.2500 #### [facility] [address] [place], [address] WBC (Bld) [#/Vol] 8.2 10*3/uL Normal 4.4-11.0 [facility] Comment on above: Performed By: #### L 503.7505, L501.4021, L100.0100, L500.2500 #### [facility] [address] [place], [address] Carbon dioxide, total [Moles /volume] in Central venous bloodOrdered By: Mundo Lemus on 01-31-2025 CO2 [Moles/Vol] 23.8 mmol/L 21.0-32.0 [facility] Chest PA and Lateralon 01-31 Chest PA and Lateral [facility] Imaging Services [address] [place] [address] Chest PA and Lateral MR#: [id number] Acct: [id number] Name: JANIYA BETANCUR Rep #: [id number] : 1980 M 44 From: Jesus Snow PCP: Care Physician,No Primary Status: REG ER Study: Chest PA and Lateral Date of Exam: 01/31/25 Exam# [id number] Ordering Dr: Mundo Lemus DO PROCEDURE: CHEST PA AND LATERAL 01/31/2025 [...] evidence of acute cardiopulmonary disease. Reading Location: [place] [address] CC: Dr. Mundo Lemus, ; No Primary Care Physician Insurance Verification Clerk: Signed Normal [facility] Chloride assayOrdered By: Eric Lemus on 01-31-2025 Chloride [Moles/Vol] 103 mmol/L 98-108 [facility] Emergency Department Summary on 01-31-2025 Emergency Department Summary [facility] Medical Records Department [address] [place] [address] Emergency Department Summary 01/31/25 MR#: [id number] Acct: [id number] Name: JANIYA BETANCUR Rep #: [id number] : 1980 44 From: Mundo Lemus DO PCP: Care Physician,No Primary Status:REG ER Location: ED HPI History of Present [...] pressure. He has a family history of WY with his dad having an WY in his 50s. Tobacco abuser. Denies any shortness of breath, bilateral lower extremity swelling or pain. Review of systems: See HPI Medications: As listed on the chart Allergies: As listed on the chart PFSH: Per chart Vital signs: As listed on the chart. Reviewed. Physical exam: Gen: A O x3, NAD Head: Normocephalic, atraumatic Eyes: No [...] intact Psych: Cooperative, appropriate mood and affect [facility] Medical History (Updated 01/31/25 @ 09:49 by Mackenzie Anton) History of ankle fracture Home Medications ???Medication ???Instructions ???Recorded ???Last Taken ???Type NK 01/31/25 Unknown History Allergy/AdvReac Type Severity [...] is not limited to ACS, hypertension urgency, hypertension emergency, suspect less likely CHF. Aspirin ordered for symptoms. Cardiac workup ordered. EKG and chest x-ray reviewed see below. CBC without leukocytosis or anemia. Coagulation panel unremarkable. BMP unremarkable. BNP unremarkable. Troponin x 2 unremarkable. On reevaluation, patient [...] % (Auto) 50.4 Lymph % (Auto) 36.5 [place] % (Auto) 9.4 Eos % (Auto) 2.7 [...] Glucose 76 Calcium 9.0 Troponin T High (more content not included)... Normal [facility] Eosinophil percentageOrdered By: Mundo Lemus on 01-31-2025 Eosinophils/100 WBC (Bld) 2.7 % 0-5 [facility] Erythrocyte distribution wid th ratioOrdered By: [facility] HospitalCh[facility] on 01-31-2025 Erythrocyte distribution width (RBC) [Ratio] 13.7 % 11.6-14.6 [facility] Erythrocyte distribution wid th standard deviationOrdered By: [facility] HospitalAmos Adolph on 01-31-2025 Erythrocyte distribution width (RBC) [Ratio] 45.1 fl High 35.1-43.9 [facility] Glomerular filtration rate ( GFR) estimation/1.73 sq m using serum, plasma, or whole bOrdered By: Zion Mariah on 01-31-2025 GFR/1.73 sq M.predicted among non-blacks MDRD (S/P/Bld) [Vol rate/Area] 110 mL/min/{1.73_m2} >60 [facility] Comment on above: mL/min/1.73m2 CKD-EP I Creatinine Equation (2020) H AND P Exam - [facility] 01-31-2025 H&P Exam - Hospitalist [facility] Medical Records Department [address] [place] [address] H P Exam - Hospitalist 01/31/25 1414 MR#: [id number] Acct: [id number] Name: JANIYA BETANCUR Rep #: [id number] : 1980 44 From: Jacky Montelongo DO PCP: Care Physician,No Primary Status:ADM SUNNI [facility] General Date of Admission: 01/31/25 Date of Service: 01/31/25 Chief Complaint: Chest pain HPI Narrative JANIYA BETANCUR, is a 44 M who presented to [facility] ED on 01/31/2025 with chest pain. Patient has minimal past medical history, takes no medications at home. However, notes that he has not seen a doctor in years. He has had chest pain off and on for the past few weeks. Pain is in left chest with intermittent radiation to the left arm. Does seem to worsen with exertion and get better with rest. 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 Had associated nausea with this. Given the symptoms, he came in for further evaluation. He is a current smoker, smokes 1 to 1.5 packs of cigarettes per day. 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 Does have family history of heart disease. Dad had an W[place] in his 50s. Mom has had stenting done in her 60s and 70s. In the ED he was hypertensive to the 150s systolic but otherwise in normal sinus rhythm and stable on room air at rest. CBC and BMP were benign. Troponins negative x 2. BNP normal. EKG with normal sinus rhythm with no ST changes. Chest x-ray unremarkable. However, given patient's reported history of the pain and family history, hospitalist was contacted for admission. I saw the patient at bedside in the ED. Patient was sitting back comfortably in bed, conversing normally, in no acute distress. He reported mild left-sided pain currently, improved from earlier today. He was given 1 dose of aspirin 325 mg in the ED but was not given any nitro. He denies any numbness/tingling down the left arm currently. Denies any other acute concerns at this time. Will be admitted for further management. [facility] Medical History (Updated 01/31/25 @ 19:[address] Jacky Montelongo, ) History of ankle fracture Home Medications ???Medication ???Instructions ???Recorded ???Last Taken ???Type NK 01/31/25 Unknown History Allergy/AdvReac Type Severity Reaction Status Date / Time Penicillins Allergy Rash Verified 01/31/25 09:36 Social History (Updated 01/31/25 @ 15:57 by Eduarda Bowers) Smoking Status: Current every day smoker tobacco type: cigarettes ROS Constitutional Constitutional: Denies chills, fatigue, fever(s) or weakness Eyes Eyes: Denies change in vision Cardiovascular Cardiovascular: Reports chest pain; Denies dyspnea on exertion, edema, lightheadedness or rapid heart rate Respiratory/Chest Respiratory/Chest: Denies cough, shortness of breath at rest, shortness of breath with exertion or wheezing Gastrointestinal Gastrointestinal: Denies abdominal pain Musculoskeletal Musculoskeletal: Denies arthralgias or myalgias Neurologic Neurologic: Denies dizziness, focal weakness or headache(s) Vital Signs Vital Signs Vital Signs: 01/31/25 09:35 01/31/25 09:50 01/31/25 [...] 53 120 Pulse Ox Oxygen Delivery Method Weight Weight: 72.348 kg Body Mass Index (BMI) 22.2 Physical Exam Const alert, oriented x3, no apparent distress and average body habitus Constitutional Narrative: Pleasant middle-age male, sitting back comfortably in bed, conversing normally, in no acute distress. General Appearance: cooperative and comfortable HEENT normocephalic, head/scalp atraumatic, hearing grossly normal bilaterally, nasal mucous membranes and turbinates normal and moist oral mucous membranes Eyes PERRL, EOMs intact bilaterally and conjunctivae normal Neck full ROM Chest inspection of chest normal Resp normal respiratory effort, normal air movement, no use of accessory muscles and clear to auscultation bilaterally Cardio regular rate, regular rhythm, no murmurs and peripheral pulses 2+ throughout GI normal to inspection, nondistended, normoactive bowel sounds, soft to palpation, non-tender and non- distended Back/Spine normal ROM Ex (more content not included)... Normal [facility] Hematocrit Auto (Bld) [Volum e fraction]Ordered By: Mundo Lemus on 01-31-2025 Hematocrit (Bld) [Volume fraction] 44.4 % 40-54 [facility] Hemoglobin A1con 01-31-2025 HbA1c (Bld) [Mass fraction] 5.4 % Normal <=5.6 [facility] Comment on above: Result Comment: Norm al < 5.7 % Prediabetic 5.7 - 6.4 % Diabetic >or= 6.5 % Please note range changes. Performed By: #### L 501.9504, L501.9981 #### [facility] [address] [place], [place], [id number] Hemoglobin A1c percentageOrd ered By: Jacky Montelongo on 01-31-2025 HbA1c (Bld) [Mass fraction] 5.4 % <5.7 [facility] Comment on above: Normal < 5.7 % Predi abetic 5.7 - 6.4 % Diabetic >or= 6.5 % Please note range changes. Hemoglobin measurementOrdere d By: Mundo Lemus on 01-31-2025 Hemoglobin (Bld) [Mass/Vol] 15.3 g/dL 13.0-16.5 [facility] Immature granulocytes/100 WB C Auto (Bld)Ordered By: Mundodonell ChowAdolph on 01-31-2025 Immature granulocytes/100 WBC (Bld) 0.100 % 0.0-0.9 [facility] Comment on above: IG% - Immature Granu locytes (promyelocytes, myelocytes and metamyelocytes) > 1% indicates that a LEFT SHIFT is Present. International normalized rat io (INR) calculationOrdered By: Mundo Lemus on 01-31-2025 INR Coag (Bld) [Relative time] 0.9 {INR} [facility] L501.4021on 01-31-2025 Trop T High Sen < 6 Normal <=22 [facility] Comment on above: Performed By: #### L 501.4021 #### [facility] [address] [place], [address] Trop T High Sen 10 ng/L Normal <=22 [facility] Comment on above: Performed By: #### L 503.7505, L501.4021, L100.0100, L500.2500 #### [facility] [address] [place], [address] MCV (mean corpuscular volume ) determinationOrdered By: Mundo Lemus on 01-31-2025 MCV (RBC) [Entitic vol] 89.7 fL 80-[address] [facility] Mean corpuscular hemoglobin (MCH) determinationOrdered By: Mundo Lemus on 01-31-2025 MCH (RBC) [Entitic mass] 30.9 pg 27.0-32.0 [facility] Mean corpuscular hemoglobin concentration (MCHC) determinationOrdered By: Mundo Lemus on 01-31-2025 MCHC (RBC) [Mass/Vol] 34.5 g/dL 32-36 [facility] Mean platelet volume determi nationOrdered By: Zion Mariah on 01-31-2025 Platelet mean volume (Bld) [Entitic vol] 10.4 fL 6.2-12.0 [facility] Monocyte percentageOrdered B y: Mundo Lemus on 01-31-2025 Monocytes/100 WBC (Bld) 9.4 % 0-[address] [facility] Natriuretic peptide.B prohor janice N-Terminal [Mass/volume] in Serum or PlasmaOrdered By: Mundo Lemus on 01-31-2025 Natriuretic peptide.B prohormone N-Terminal [Mass/Vol] < 36 pg/mL <450 [facility] Comment on above: Heart Failure Unlike ly: < 300 pg/mLHeart Failure Likely< 50 Years: > 450 pg/mL50-75 Years: > 900 pg/mL>75 Years: > 1800 pg/mL Neutrophil percentageOrdered By: Mundo Lemus on 01-31-2025 Neutrophils/100 WBC (Bld) 50.4 % 47-70 [facility] Nucleated red blood cell per centageOrdered By: Mundo Lemus on 01-31-2025 Nucleated RBC/100 WBC (Bld) [Ratio] 0 % 0-5 [facility] Partial Thromboplast Timeon 01-31-2025 aPTT Coag (Bld) [Time] 26.9 s Normal 24.1-36.2 [facility] Comment on above: Performed By: #### L 501.4021 #### [facility] [address] [place], [address] Platelet countOrdered By: Eric Lemus on 01-31-2025 Platelets (Bld) [#/Vol] 230 10*3/uL 150-450 [facility] Potassium measurement (mass/ volume)Ordered By: Mundo Diego on 01-31-2025 Potassium (Unsp spec) [Mass/Vol] 3.7 mmol/L 3.3-5.1 [facility] Pro- Brain NATRIURETIC PEPTI José Miguel 01-31-2025 proBNP < 36 Normal <=450 [facility] Comment on above: Result Comment: Hear t Failure Unlikely: < 300 pg/mL Heart Failure Likely < 50 Years: > 450 pg/mL 50-75 Years: > 900 pg/mL >75 Years: > 1800 pg/mL Performed By: #### L 503.7505, L501.4021, L100.0100, L500.2500 #### [facility] [address] [place], [address] Prothrombin Time w/INRon INR Coag (PPP) [Relative time] 0.9 {INR} Normal [facility] Comment on above: Performed By: #### L 501.4021 #### [facility] [address] [place], [address] PT Coag (PPP) [Time] 12.5 s Normal 11.7-14.9 [facility] Comment on above: Performed By: #### L 501.4021 #### [facility] [address] [place], [address] Prothrombin timeOrdered By: Mundo Lemus on 01-31-2025 PT Coag (PPP) [Time] 12.5 s 11.7-14.9 [facility] RBC Auto (Bld) [#/Vol]Ordere d By: Mundo Lemus on 01-31-2025 RBC (Bld) [#/Vol] 4.95 10*6/uL 4.6-6.2 [facility] Serum creatinine measurement (mass/volume)Ordered By: Mundo Lemus on 01-31-2025 Creatinine [Mass/Vol] 0.82 mg/dL 0.70-1.20 [facility] Serum glucose measurement (m ass/volume)Ordered By: Mundo Lemus on 01-31-2025 Glucose [Mass/Vol] 76 mg/dL 70-99 [facility] Serum or plasma calcium gómez urement (mass/volume)Ordered By: Mundo Farfan on 01-31-2025 Calcium [Mass/Vol] 9.0 mg/dL 7.6-11.0 [facility] Serum or plasma urea nitroge n measurement (mass/volume)Ordered By: Mundo Lemus on 01-31-2025 Urea nitrogen [Mass/Vol] 7 mg/dL 4-19 [facility] Sodium levelOrdered By: Dom Lemus on 01-31-2025 Sodium [Moles/Vol] 140 mmol/L 133-145 [facility] TSH DL <= 0.005 mIU/L QnOrde red By: Jacky Montelongo on 01-31-2025 TSH Qn 1.780 uIU/mL 0.300-4.200 [facility] Thyroid Stim Hormone (TSH)on 01-31-2025 TSH 1.780 uIU/mL Normal 0.300-4.200 [facility] Comment on above: Performed By: #### L 501.4201, L501.9925 #### [facility] [address] [place], [place], [address] Troponin T HS 2 HRon 025 Trop T High Sen < 6 Normal <=22 [facility] Comment on above: Performed By: #### L 499.0042 #### [facility] [address] [place], [place], [address] Troponin T.cardiac [Mass/vol ume] in Serum or Plasma by High sensitivity methodOrdered By: Jacky Montelongo on 01-31-2025 Troponin T.cardiac High sensitivity method [Mass/Vol] < 6 ng/L <22 [facility] Comment on above: Delta: 10 on 5-0947 Troponin T.cardiac [Mass/vol ume] in Serum or Plasma by High sensitivity methodOrdered By: Mundo Lemus on 01-31-2025 Troponin T.cardiac High sensitivity method [Mass/Vol] < 6 ng/L <22 [facility] Troponin T.cardiac High sensitivity method [Mass/Vol] 10 ng/L <22 [facility] White blood cell (WBC) count Ordered By: Mundo Lemus on 01-31-2025 WBC (Bld) [#/Vol] 8.2 10*3/uL 4.4-11.0 [facility] CNOVon 07-24-2019 CNOV Office Visit ([facility] ) JANIYA BETANCUR ([id number]) 1980 M Date Time Provider Department 07/24/19 9:00 AM JUDITH MEDINA) [facility] During your visit today, we recorded the [...] - ustekinumab (STELARA SUBCUTANEOUS) Inject subcutaneously. - HYDROCODONE-ACETAMINO PHEN 5 MG-500 MG TAB Take one(1) tablet every four(4) to six(6) hours as needed for pain. (Patient not taking: No more than 4000 mg of acetaminophen should be given per day (FROM ALL SOURCES) ) 30 0 No current facility-administered medications for this visit. PAST SURGICAL HISTORY Procedure Laterality Date - NONE FAMILY HISTORY Problem Relation Age of Onset - other (bronchitis [Other]) Mother - Heart Father September 2003 of [place] Social History Tobacco Use - Smoking status: [...] Primary Visit Diagnosis:Rib pain [R07.81] Other Visit Diagnosis:Bronchitis [J40] Order(s):XR RIBS/CHEST 3V AP RIB/OBLS/CXR RT [[id number]] Order #: [id number] FUTURE predniSONE (DELTASONE) 20 mg tabletTake 2 [...] by JUDITH MEDINA PA-C on 07/24/19 [facility] PROGRESSon 07-24-2019 PROGRESS HNO ID: [id number] Author: Judith Medina (Pa) Service: ? Author Type: Physician Professor Of Religious Studies Type: Progress Notes Filed: 07/24/2019 11:15 AM [...] - ustekinumab (STELARA SUBCUTANEOUS) Inject subcutaneously. - HYDROCODONE-ACETAMINO PHEN 5 MG-500 MG TAB Take one(1) tablet every four(4) to six(6) hours as needed for pain. (Patient not taking: No more than 4000 mg of acetaminophen should be given per day (FROM ALL SOURCES) ) 30 0 No current facility-administered medications for this visit. PAST SURGICAL HISTORY Procedure Laterality Date - NONE FAMILY HISTORY Problem Relation Age of Onset - other (bronchitis [Other]) Mother - Heart Father September 2003 of [place] Social History Tobacco Use - Smoking status: [...] follow-up with PCP. Judith Medina PA-C [facility] PROGRESS HNO ID: [id number] Author: Nimo Gonzalez (Rt) Kamron Sanchez Service: ? Author Type: Processes Chemical Design Engineer Type: Progress Notes Filed: 07/24/2019 9:52 AM [...] PERIPHERAL IV DATA: Not applicable SIGNED BY: Nimo Sanchez RT July 24, 2019 9:41 AM [facility] XR RIB/CHST 3V AP RIB/OBL/CH ST [...] or nondisplaced rib fracture. IMPRESSION: Negative ribs. Insurance Verification Clerk: PSCB Transcribe Date/Time: Jul 24 2019 10:18A Dictated by : CHRISTIANA PERAZA MD This examination was interpreted and the report reviewed and electronically signed by: CHRISTIANA PERAZA MD on Jul 24 2019 10:19AM EST [id number] N [facility] CNOVon 03-19-2019 CNOV Office Visit ([facility] ) JANIYA BETANCUR ([id number]) 1980 M Date Time Provider Department 03/19/19 11:00 AM MAMADOU AMES ([facility]) [facility] During your visit today, we recorded [...] Penicillins MEDICATIONS ustekinumab (STELARA SUBCUTANEOUS) Inject subcutaneously. HYDROCODONE-ACETAMINO PHEN 5 MG-500 MG TAB Take one(1) tablet every four(4) to six(6) hours as needed for pain. FAMILY HISTORY Problem Relation Age of Onset - other (bronchitis [Other]) Mother - Heart Father September 2003 of [place] Social History Tobacco Use - Smoking status: [...] ?No acute fracture or dislocation. Mamadou Ames APRN.[facility] Referring Provider: SELF [200] Allergies As of Date: 03/19/2019 Noted Allergy Reaction ASA (SALICYLATES) 01/17/2007 PENICILLINS 01/26/2016 4 - Hives Date Reviewed: 03/19/2019 Reviewed by: Jazmin Arriola LPN - Fully Assessed Reason for Visit: left ankle pain [Other] Cmt: x 3-4 weeks-old injury Primary Visit Diagnosis:Left ankle pain, unspecified chronicity [M25.572] Order(s):XR ANKLE GENERAL 3V AP/LAT/OBL LT [[id number]] Order #: [id number]. #:[id number] Prescriptions as of 03/19/2019 Sig: STELARA SUBCUTANEOUS Inject subcutaneously. HYDROCODONE 5 MG-ACETAMINOPHE* Take one(1) tablet every four* Patient not taking: No more than 4000 mg of aceta* Problem List As Of Date 03/19/2019 Noted Resolved LUMBAGO [M54.5] INVALID FOR* Letter Text Letter Text Encounter Status:Closed by MAMADOU AMES CNP on 03/19/19 [facility] PROGRESSon 03-19-2019 PROGRESS HNO ID: [id number] Author: Kendal Dillon Service: ? Author Type: [...] IV DATA: Not applicable SIGNED BY: Kendal Greco Rt March 19, 2019 11:30 AM [facility] PROGRESS HNO ID: [id number] Author: Mamadou Ames Service: ? Author Type: [...] Penicillins MEDICATIONS ustekinumab (STELARA SUBCUTANEOUS) Inject subcutaneously. HYDROCODONE-ACETAMINO PHEN 5 MG-500 MG TAB Take one(1) tablet every four(4) to six(6) hours as needed for pain. FAMILY HISTORY Problem Relation Age of Onset - other (bronchitis [Other]) Mother - Heart Father September 2003 of [place] Social History Tobacco Use - Smoking status: [...] 1. ?No acute fracture or dislocation. 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 No acute fracture or dislocation. Insurance Verification Clerk: PSCB Transcribe Date/Time: Mar 19 2019 11:45A Dictated by : LEONILA NICHOLSON MD This examination was interpreted and the report reviewed and electronically signed by: LEONILA NICHOLSON MD on Mar 19 2019 11:46AM EST [id number] [facility] Vital Signs Date Time Vital Sign Value Performing Clinician Faci lity 02-06-2025 14:45-0400 Body temperature 98.1 [degF] No Primary Care Physician [facility] 02-06-2025 14:45-0400 Diastolic blood pressure 86 mm[Hg] No Primary Care Physician [facility] 02-06-2025 14:45-0400 Heart rate 60 /min No Primary Care Physician [facility] 02-06-2025 14:45-0400 Respiratory rate 16 /min No Primary Care Physician [facility] 02-06-2025 14:45-0400 SaO2% (BldA) [Mass fraction] 100 % No Primary Care Physician [facility] 02-06-2025 14:45-0400 Systolic blood pressure 134 mm[Hg] No Primary Care Physician [facility] 02-06-2025 10:48-0400 Body height 180.34 cm No Primary Care Physician [facility] 02-06-2025 10:48-0400 Body mass index (BMI) [Ratio] 22.1 kg/m2 No Primary Care Physician [facility] 02-06-2025 10:48-0400 Body weight 72.12 kg No Primary Care Physician [facility] 02-01-2025 15:15-0400 Body temperature 97.6 [degF] No Primary Care Physician [facility] 02-01-2025 15:15-0400 Diastolic blood pressure 87 mm[Hg] No Primary Care Physician [facility] 02-01-2025 15:15-0400 Heart rate 58 /min No Primary Care Physician [facility] 02-01-2025 15:15-0400 Respiratory rate 16 /min No Primary Care Physician [facility] 02-01-2025 15:15-0400 SaO2% (BldA) [Mass fraction] 99 % No Primary Care Physician [facility] 02-01-2025 15:15-0400 Systolic blood pressure 114 mm[Hg] No Primary Care Physician [facility] 01-31-2025 15:56-0400 Body height 180.34 cm No Primary Care Physician [facility] 01-31-2025 15:56-0400 Body mass index (BMI) [Ratio] 21.9 kg/m2 No Primary Care Physician [facility] 01-31-2025 15:56-0400 Body weight 71.3 kg No Primary Care Physician [facility] 01-31-2025 15:04-0400 Body temperature 98.7 [degF] No Primary Care Physician [facility] 01-31-2025 15:04-0400 Diastolic blood pressure 79 mm[Hg] No Primary Care Physician [facility] 01-31-2025 15:04-0400 Heart rate 74 /min No Primary Care Physician [facility] 01-31-2025 15:04-0400 Respiratory rate 16 /min No Primary Care Physician [facility] 01-31-2025 15:04-0400 SaO2% (BldA) [Mass fraction] 100 % No Primary Care Physician [facility] 01-31-2025 15:04-0400 Systolic blood pressure 152 mm[Hg] No Primary Care Physician [facility] 01-31-2025 09:35-0400 Body height 180.34 cm No Primary Care Physician [facility] 01-31-2025 09:35-0400 Body mass index (BMI) [Ratio] 22.2 kg/m2 No Primary Care Physician [facility] 01-31-2025 09:35-0400 Body weight 72.34 kg No Primary Care Physician [facility] Encounters Encounter Date Encounter Type Care Provider Facility Start: 02-06-2025 End: 02-06-2025 Emergency department patient visit No Primary Care Physician -Emergency Department Work Phone: Start: 02-01-2025 Non-patient / Non-visit Dr. Maryjane dowling MD -[facility] Work Phone: Start: 02-01-2025 Non-patient / Non-visit Dr. Rustam PEREZ -[facility] Start: 01-31-2025 End: 02-01-2025 ambulatory Jacky Montelongo Facility:[facility] Start: 01-31-2025 End: 02-01-2025 Evaluation and management of inpatient Dr. Jacky Montelongo DO -[facility] Unit Work Phone: Start: 01-31-2025 End: 02-01-2025 observation encounter No Primary Care Physician -Progressive Care Unit Procedures Date Procedure Procedure Detail Performing Clinician Start: 02-06-2025 X-ray of chest, PA a nd lateral views No Primary Care Physician Start: 02-06-2025 Estimated creatinine clearance No Primary Care Physician Start: 02-01-2025 Radionuclide imaging of perfusion of myocardium under exercise stress No Primary Care Physician Start: 02-01-2025 Estimated creatinine clearance No Primary Care Physician Start: 01-31-2025 X-ray of chest, PA a nd lateral views No Primary Care Physician Start: 01-31-2025 Estimated creatinine clearance No Primary Care Physician Plan of Treatment Date Care Activity Detail Author Start: 02-06-[address] [facility] Start: 02-01-2025 Patient discharge [facility] Start: 02-01-2025 Cardiovascular stres s test using pharmacologic stress agent Nuclear Stress Test - Chemical [facility] Start: 02-01-2025 Complete blood count [facility] Start: 01-31-[address] [facility] Start: 01-31-2025 Following clinical p athway protocol [facility] Start: 01-31-2025 Ambulation without limitation [facility] Start: 01-31-2025 Assessment of risk o f venous thromboembolism [facility] Start: 01-31-2025 Insertion of cathete r into peripheral vein [facility] Start: 01-31-2025 Oxygen therapy [facility] Start: 01-31-2025 Providing care accor ding to standard [facility] Start: 01-31-[address] [facility] Start: 01-31-2025 Thyroid stimulating hormone measurement [facility] Start: 01-31-2025 Admission procedure [facility] Start: 01-31-2025 Verification routine [facility] Start: 01-31-[address] [facility] Anion gap in Serum o r Plasma [facility] BUN/Creatinine ratio [facility] Calcium [Mass/volume ] in Serum or Plasma [facility] Carbon dioxide, tota l [Moles/volume] in Central venous blood [facility] Cholesterol [Mass/vo lume] in Serum or Plasma [facility] Cholesterol in HDL [Mass/volume] in Serum or Plasma [facility] Creatinine [Mass/vol ume] in Serum or Plasma [facility] Erythrocyte mean corpuscular volume determination [facility] Glucose [Mass/volume ] in Serum or Plasma [facility] Hematocrit [Volume Fraction] of Blood [facility] Hemoglobin [Mass/vol ume] in Blood [facility] Hemoglobin A1c/Hemoglobin.total in Blood [facility] Leukocytes [#/volume ] in Blood [facility] Low density lipoprot ein cholesterol measurement [facility] Mean corpuscular hem oglobin concentration determination [facility] Mean corpuscular hem oglobin determination [facility] Measurement of renal function [facility] Patient Education [facility] Work Phone: Platelets [#/volume] in Blood [facility] Potassium measurement [facility] Red blood cell count [facility] Red cell distributio n width determination [facility] Serum chloride measurement [facility] Sodium measurement [facility] Total cholesterol:HD L ratio measurement [facility] Triglycerides measurement [facility] Urea nitrogen [Mass/ volume] in Serum or Plasma [facility] VLDL cholesterol measurement [facility] Immunizations Immunization Date Immunization Notes Care Provider [facility] 04-03-2012 Influenza virus vaccine No P [facility] Physician [facility] Payers Date Payer Category Payer Self-pay 2025 Unknown [id number] 2025 Unknown [id number] Unknown [id number] Unknown Unknown [id number] Unknown [id number] [id number] [id number] Unknown [id number] [id number] [id number] Unknown [id number] [id number] [id number] Social History Date Type Detail Facility Start: 01-31-2025 End: 02-01-2025 Tobacco smoking status NHIS Smokes tobacco daily (finding) [facility] Start: 1980 Sex Assigned At Male [facility] Start: 02-06-2025 Tobacco smoking stat us NCIS Current Light tobacco smoker [facility] Goals Date Patient Goal Desired Activity /State Functional Status Date Assessment Result Facility 02-01-2025 Functional status Ambulates [facility] Work Phone: Mental Status Date Assessment Result Facility 02-06-2025 Cognitive function Level Of Cons ciousness Awake;Alert;Appropriate;Follow s Commands [facility] Work Phone: 02-01-2025 Cognitive function Voice/Name [facility] Work Phone: 01-31-2025 Cognitive function Level Of Cons ciousness Awake;Alert;Appropriate;Follow s Commands [facility] Work Phone: Clinical Notes 01-31-2025 to 02-06-2025 Note Date & Type Note Facility 02-06-2025 Radiology Diagnostic study note [facility] Imaging Services [address] [place] [address] Chest PA and Lateral MR#: [id number] Acct: [id number] Name: JANIYA BETANCUR Rep #: [id number] : 1980 M 44 From: Julio Chacon MD PCP: Care Physician,No Primary Status: PRE ER Study:Chest PA and Lateral Date of Exam: 02/06/25 Exam# [id number] Ordering Dr: Edin Mackay DO PROCEDURE: CHEST PA AND LATERAL 02/06/2025 REASON FOR EXAM: HYPERTENSION TECHNIQUE: CHEST PA AND LATERAL COMPARISON: Prior study dated January 31, 2025. FINDINGS: Hardware: None Heart: The heart size is normal. Mediastinum: The mediastinal contour is unremarkable. Lungs: Hyperinflation. Prominence of the central pulmonary arteries suggestive of possible hypertension. Bones: No acute abnormalities. RAD/Chest PA and Lateral IMPRESSION: Hyperinflation. No pulmonary infiltrate is seen. Reading Location: [facility] CC: Dr. Edin Mackay DO; No Primary Care Physician ~ Insurance Verification Clerk: Signed [facility] 02-01-2025 Discharge summary [facility] 02-01-2025 Note [facility] Medical Records Department [address] [place] [address] Discharge Summary 02/01/25 1450 MR#: [id number] Acct: [id number] Name: JANIYA BETANCUR Rep #: [id number] : 1980 44 From: Maryjane Valenzuela MD PCP: Care Physician,No Primary Status:DIS SUNNI Location: [place] [address] Providers Date of Admission: 01/31/25 Date of Discharge: 02/01/25 Primary Care Physician: No Primary Care Phys Reason For Visit: CHEST PAIN Diagnosis Discharge Diagnosis (1) Non-cardiac chest pain: Status: Acute Code(s): R07.89 - Other chest pain (2) HTN (hypertension): Status: Chronic Code(s): I10 - Essential (primary) hypertension (3) Tobacco use: Status: Acute Code(s): Z72.0 - Tobacco use Plan #Non cardiac chest pain #HTN #tobacco use Medications at Discharge Home Medications amlodipine 5 mg tablet 5 mg PO DAILY 30 days #30 tabs 02/01/25 Hospital Course Summary of Care Provided Minutes Spent on Discharge: 25 Hospital Course: per HPI: JANIYA BETANCUR, is a 44 M who presented to [facility] ED on 01/31/2025 with chest pain. Patient has minimal past medical history, takes no medications at home. However, notes that he has not seen a doctor in years. He has had chest pain off and on for the past few weeks. Pain is in left chest with intermittent radiation to the left arm. Does seem to worsen with exertion and get better with rest. 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 Had associated nausea with this. Given the symptoms, he came in for further evaluation. He is a current smoker, smokes 1 to 1.5 packs of cigarettes per day. 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 Does have family history of heart disease. Dad had an [place] in his 50s. Mom has had stenting done in her 60s and 70s. In the ED he was hypertensive to the 150s systolic but otherwise in normal sinus rhythm and stable on room air at rest. CBC and BMP were benign. Troponins negative x 2. BNP normal. EKG with normal sinus rhythm with no ST changes. Chest x-ray unremarkable. However, given patient's reported history of the pain and family history, hospitalist was contacted for admission. I saw the patient at bedside in the ED. Patient was sitting back comfortably in bed, conversing normally, in no acute distress. He reported mild left-sided pain currently, improved from earlier today. He was given 1 dose of aspirin 325 mg in the ED but was not given any nitro. He denies any numbness/tingling down the left arm currently. Denies any other acute concerns at this time. Will be admitted for further management. INTERVAL HISTORY: Patient had no further complaints of chest pain, stress test and echocardiogram within normal limits. He was started amlodipine for some elevated blood pressures. Before discharge patient did say he actually had some irritation over the left chest wall when he pushed on it and thinks maybe he strained something. Discussed if he were to have any other concerning signs or symptoms that he should return to the ED. Also advised smoking cessation and patient to be provided with list of local PCPs to get established. Patient no new acute complaints on day of discharge Physical Exam Narrative General: Alert, oriented, no apparent distress HEENT: Atraumatic, normocephalic Eyes: Anicteric, normal conjunctiva, extraocular movements grossly intact Neck: Supple Respiratory: Clear to auscultation bilaterally, normal respiratory effort Cardiovascular: Regular rate and rhythm GI: Soft, nontender, nondistended Extremities: No edema Musculoskeletal: Moving all extremities Neuro: No overt focal neurological deficits Skin: No rashes appreciated Psych: Cooperative Weight / BMI Weight Weight: 71.3 kg Body Mass Index (BMI) 21.9 ABG / Lab / Microbiology Data 02/01/25 04:43 02/01/25 04:43 Laboratory: Laboratory Results - last 24 hr 01/31/25 17:37: Troponin T High Sens < 6 D 02/01/25 04:43: WBC 8.2, RBC 4.86, Hgb 15.1, Hct 43.1, MCV 88.7, MCH 31.1, MCHC 35.0, RDW Std Deviation 43.6, RDW Coeff of Brandi 13.3, Plt Count 214, MPV 10.5, Sodium 138, Potassium 4.1, Chloride 102, Carbon Dioxide 24.4, Anion Gap 11, BUN 13, Creatinine 0.84, Estim Creat Clear Calc 112.00, Est GFR (MDRD) Non-Af 109, BUN/Creatinine Ratio 15.2, Glucose 87, Calcium 9.0, Triglycerides 44, Cholesterol 162, LDL Cholesterol, Calc 84, VLDL Cholesterol 9, HDL Cholesterol 69, Cholesterol/HDL Ratio 2.35 D/C Instructions DC O2, CPAP, BIPAP Needs Home O2 Discharge instructions: No Meaningful Use Info Meaningful Use Meaningful Use Diagnoses (Choose all that apply): None applicable Discharge Plan Admission Admit Date/Time: 01/31/25 14:16 Primary Reason for Your V (more content not included)... [facility] 01-31-2025 History and physi komal note Note Date/Time January 31, 2025 7:16pm [facility] Medical Records Department [address] [place] [address] H&P Exam - Hospitalist 01/31/25 1414 MR#: [id number] Acct: [id number] Name: JANIYA BETANCUR Rep #:[id number] : 1980 44 From: Jacky locke DO PCP: Care Physician,No Primary Status :ADM SUNNI Location: [facility] [id number] HPI - General General Date of Admission: 01/31/25 Date of Service: 01/31/25 Chief Complaint: Chest pain HPI Narrative JANIYA BETANCUR, is a 44 M who presented to [facility] ED on 01/31/2025 with chest pain. Patient has minimal past medical history, takes no medications at home. However, notes that he has not seen a doctor in years. Hehas had chest pain off and on for the past few weeks. Pain is in left chest with intermittent radiation to the left arm. Does seem to worsen with exertion and get better with rest. 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 Had associated nausea with this. Given the symptoms, he came in for further evaluation. He is a current smoker, smokes 1 to 1.5 packs of cigarettes per day. 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 Does have family history of heart disease. Dad had an WY in his 50s. Mom has had stenting done in her 60s and 70s. In the ED he was hypertensive to the 150s systolic but otherwise in normal sinus rhythm and stable on room air atrest. CBC and BMP were benign. Troponins negative x 2. BNP normal. EKG with normal sinus rhythm with no ST changes. Chest x-ray unremarkable. However, given patient's reported history of the pain and family history, hospitalist wascontacted for admission. I saw the patient at bedside in the ED. Patient was sitting back comfortably in bed, conversing normally, in no acute distress. He reported mild left-sided pain currently, improved from earlier today. He was given 1 dose of aspirin 325 mg in the ED but was not given any nitro. He deniesany numbness/tingling down the left arm currently. Denies any other acute concerns at this time. Will be admitted for further management. [facility] Medical History (Updated 01/31/25 @ 19:[address] Jacky Montelongo, ) History of ankle fracture Home Medications ?Medication ?Instructions ?Recorded ?Last Taken ?Type NK 01/31/25 Unknown History Allergy/AdvReac Type Severity Reaction Status Date / Time Penicillins Allergy Rash Verified 01/31/25 09:36 Social History (Updated 01/31/25 @ 15:57 by Eduarda Bowers) Smoking Status: Current every day smoker tobacco type: cigarettes ROS Constitutional Constitutional: Denies chills, fatigue, fever(s) or weakness Eyes Eyes: Denies change in vision Cardiovascular Cardiovascular: Reports chest pain; Denies dyspnea on exertion, edema, lightheadedness or rapid heart rate Respiratory/Chest Respiratory/Chest: Denies cough, shortness of breath at rest, shortness of breath with exertion or wheezing Gastrointestinal Gastrointestinal: Denies abdominal pain Musculoskeletal Musculoskeletal: Denies arthralgias or myalgias Neurologic Neurologic: Denies dizziness, focal weakness or headache(s) Vital Signs Vital Signs Vital Signs: 01/31/25 09:35 01/31/25 09:50 01/31/25 [...] 53 120 Pulse Ox Oxygen Delivery Method Weight Weight: 72.348 kg Body Mass Index (BMI) 22.2 Physical Exam Const alert, oriented x3, no apparent distress and average body habitus Constitutional Narrative: Pleasant middle-age male, sitting back comfortably in bed, conversing normally, in no acute distress. General Appearance: cooperative and comfortable HEENT normocephalic, head/scalp atraumatic, hearing grossly normal bilaterally, nasal mucous membranes and turbinates normal and moist oral mucous membranes Eyes PERRL, EOMs intact bilaterally and conjunctivae normal Neck full ROM Chest inspection of chest normal Resp normal respiratory effort, normal air movement, no use of accessory muscles and clear to auscultation bilaterally Cardio regular rate, regular rhythm, no murmurs and peripheral pulses 2+ throughout GI normal to inspection, nondistended, normoactive bowel sounds, soft to palpation,non-tender and non-distended Back/Spine normal ROM Extremity normal to inspection, full ROM and no pedal edema Skin no rashes or lesions noted Psych mental status grossly normal Results Lab / Micro Data 01/31/25 09:47 01/31/25 09:47 Labs: Laboratory Results - last 24 hr 01/31/25 09:47: WBC 8.2, RBC 4.95, Hgb 15.3, Hct 44.4, MCV 89.7, MCH 30.9, MCHC 34.5, RDW Std Deviation 45.1 H, RDW Coeff of Brandi 13.7, Plt Count 230, MPV 10.4, Immature Gran % (Auto) 0.100, Neut % (Auto) 50.4, Lymph % (Auto) 36.5, [place] % (Auto) 9.4, Eos % (Auto) 2.7, Baso % (Auto) 0.9, Absolute Neuts (auto) 4.2, Absolute Lymphs (auto) 3.00, Nucleated RBC % 0, PT 12.5, INR 0.9, APTT 26.9, Sodium 140, Potassium 3.7, Chloride 103, Carbon Dioxide 23.8, Anion Gap 13, BUN 7, Creatinine 0.82, Estim Creat Clear Calc 116.41, Est GFR (MDRD) Non-Af 110, BUN/Creatinine Ratio 8.8 L, Glucose 76, Calcium 9.0, Troponin T High Sens 10, NT pro BNP II < 36 01/31/25 12:35: Troponin T Hi Sens 2 Hr < 6 Imaging Radiology Impression Chest X-Ray 01/31/25 10:28 IMPRESSION: Mild thoracic spine degenerative changes are noted. Biapical pleural-parenchymal scarring is noted. Lungs are moderately hyperinflated. No evidence of pulmonary edema. No acute pneumonic process is seen. No pleural effusion or pneumothorax is noted. The cardiomediastinal silhouette is within the normal range. No evidence of acute cardiopulmonary disease. Reading Location: [place] [address] Assessment & Plan Assessment/Plan (1) Chest pain: PLAN: Plan Patient is a 44-year-old male who presented to [facility] ED on 01/31/2025 with chest pain. 1. Chest pain, ACS rule out ? Admit under observation status to PCU. Presented with chest pain with radiation down left arm and into left neck. Intermittent chest pain for the past 2 weeks. Workup in ED negative including troponins negative x 2, EKG with normal sinus rhythm and no ST changes, BNP normal, chest x-ray normal. However,current tobacco user as below and strong family history of heart disease. Nuclear stress test and echocardiogram ordered. Lipid profile, A1c and TSH ordered. Continue cardiac telemetry. 2. Tobacco dependence ? Smokes 1 to 1.5 packs of cigarettes daily. Nicotine patch ordered per patientrequest. Discussed cessation on discharge. 3. Elevated BP readings ? Hypertensive to the 150s over 100s in the ED. Suspect patient has essential hypertension that has been undiagnosed as he does not follow with doctors regularly. Will initiate amlodipine 5 mg daily for now, though suspect he may need switched to beta-giovanny and/or ALF inhibitor pending cardiac workup as above. Monitor BMP. DVT prophylaxis: Lovenox CODE STATUS: Full code, verified Expected disposition: Home, 1 to 2 days Total clinical time spent by myself addressing the patient's medical issues, reviewing all the data, and collaborating with patient's care team: 75 minutes. Charges/Coding Visit Charges Inpatient E&M: 41344 Init Hosp L3 01/31/25 1916 <Electronically signed by Jacky Montelongo DO> Cosigner Signature (if applicable): CC: Dr. Jacky Montelongo DO; No Primary Care Physician~ Signed [facility] Work Phone: 1(422) 870-576907-31-2025 History and physical note [facility] Medical Records Department [address] [place] [address] H&P Exam - Hospitalist 01/31/25 1414 MR#: [id number] Acct: [id number] Name: JANIYA BETANCUR Rep #:[id number] : 1980 44 From: Jacky locek DO PCP: Care Physician,No Primary Status :ADM SUNNI [facility] - General General Date of Admission: 01/31/25 Date of Service: 01/31/25 Chief Complaint: Chest pain HPI Narrative JANIYA BETANCUR, is a 44 M who presented to [facility] ED on 01/31/2025 with chest pain. Patient has minimal past medical history, takes no medications at home. However, notes that he has not seen a doctor in years. Hehas had chest pain off and on for the past few weeks. Pain is in left chest with intermittent radiation to the left arm. Does seem to worsen with exertion and get better with rest. 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 Had associated nausea with this. Given the symptoms, he came in for further evaluation. He is a current smoker, smokes 1 to 1.5 packs of cigarettes per day. 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 Does have family history of heart disease. Dad had an W[place] in his 50s. Mom has had stenting done in her 60s and 70s. In the ED he was hypertensive to the 150s systolic but otherwise in normal sinus rhythm and stable on room air atrest. CBC and BMP were benign. Troponins negative x 2. BNP normal. EKG with normal sinus rhythm with no ST changes. Chest x-ray unremarkable. However, given patient's reported history of the pain and family history, hospitalist wascontacted for admission. I saw the patient at bedside inthe ED. Patient was sitting back comfortably in bed, conversing normally, in no acute distress. He r eported mild left-sided pain currently, improved from earlier today. He was given 1 dose of [id number] mg in the ED but was not given any nitro. He deniesany numbness/tingling down the left arm currently. Denies any other acute concerns at this time. Will be admitted for further management. [facility] Medical History (Updated 01/31/25 @ 19:[address] Jacky Montelnogo DO) History of ankle fracture Home Medications ?Medication ?Instructions ?Recorded ?Last Taken ?Type NK 01/31/25 Unknown History Allergy/AdvReac Type Severity Reaction Status Date / Time Penicillins Allergy Rash Verified 01/31/25 09:36 Social History (Updated 01/31/25 @ 15:57 by Eduarda Bowers) Smoking Status: Current every day smoker tobacco type: cigarettes ROS Constitutional Constitutional: Denies chills, fatigue, fever(s) or weakness Eyes Eyes: Denies change in vision Cardiovascular Cardiovascular: Reports chest pain; Denies dyspnea on exertion, edema, lightheadedness or rapid heart rate Respiratory/Chest Respiratory/Chest: Denies cough, shortness of breath at rest, shortness of breath with exertion or wheezing Gastrointestinal Gastrointestinal: Denies abdominal pain Musculoskeletal Musculoskeletal: Denies arthralgias or myalgias Neurologic Neurologic: Denies dizziness, focal weakness or headache(s) Vital Signs Vital Signs Vital Signs: 01/31/25 09:35 01/31/25 09:50 01/31/25 [...] 53 120 Pulse Ox Oxygen Delivery Method Weight Weight: 72.348 kg Body Mass Index (BMI) 22.2 Physical Exam Const alert, oriented x3, no apparent distress and average body habitus Constitutional Narrative: Pleasant middle-age male, sitting back comfortably in bed, conversing normally, in no acute distress. General Appearance: cooperative and comfortable HEENT normocephalic, head/scalp atraumatic, hearing grossly normal bilaterally, nasal mucous membranes and turbinates normal and moist oral mucous membranes Eyes PERRL, EOMs intact bilaterally and conjunctivae normal Neck full ROM Chest inspection of chest normal Resp normal respiratory effort, normal air movement, no use of accessory muscles and clear to auscultation bilaterally Cardio regular rate, regular rhythm, no murmurs and peripheral pulses 2+ throughout GI normal to inspection, nondistended, normoactive bowel sounds, soft to palpation,non-tender and non-distended Back/Spine normal ROM Extremity normal to inspection, full ROM and no pedal edema Skin no rashes or lesions noted Psych mental status grossly normal Results Lab / Micro Data 01/31/25 09:47 01/31/25 09:47 Labs: Laboratory Results - last 24 hr 01/31/25 09:47: WBC 8.2, RBC 4.95, Hgb 15.3, Hct 44.4, MCV 89.7, MCH 30.9, MCHC 34.5, RDW Std Deviation 45.1 H, RDW Coeff of Brandi 13.7, Plt Count 230, MPV 10.4, Immature Gran % (Auto) 0.100, Neut % (Auto) 50.4, Lymph % (Auto) 36.5, [place] % (Auto) 9.4, Eos % (Auto) 2.7, Baso % (Auto) 0.9, Absolute Neuts (auto) 4.2, Absolute Lymphs (auto) 3.00, Nucleated RBC % 0, PT 12.5, INR 0.9, APTT 26.9, Sodium 140, Potassium 3.7, Chloride 103, Carbon Dioxide 23.8, Anion Gap 13, BUN 7, Creatinine 0.82, Estim Creat Clear Calc 116.41, Est GFR (MDRD) Non-Af 110, BUN/Creatinine Ratio 8.8 L, Glucose 76, Calcium 9.0, Troponin T High Sens 10, NT pro BNP II < 36 01/31/25 12:35: Troponin T Hi Sens 2 Hr < 6 Imaging Radiology Impression Chest X-Ray 01/31/25 10:28 IMPRESSION: Mild thoracic spine degenerative changes are noted. Biapical pleural-parenchymal scarring is noted. Lungs are moderately hyperinflated. No evidence of pulmonary edema. No acute pneumonic process is seen. No pleural effusion or pneumothorax is noted. The cardiomediastinal silhouette is within the normal range. No evidence of acute cardiopulmonary disease. Reading Location: [place] [address] Assessment & Plan Assessment/Plan (1) Chest pain: PLAN: Plan Patient is a 44-year-old male who presented to [facility] ED on 01/31/2025 with chest pain. 1. Chest pain, ACS rule out ? Admit under observation status to PCU. Presented with chest pain with radiation down left arm andinto left neck. Intermittent chest pain for the past 2 weeks. Workup in ED negative including troponins negative x 2, EKG with normal sinus rhythm and no ST changes, BNP normal, chest x-ray normal. However,current tobacco user as below and strong family history of heart disease. Nuclear stress testand echocardiogram ordered. Lipid profile, A1c and TSH ordered. Continue cardiac telemetry. 2. Tobacco dependence ? Smokes 1 to 1.5 packs of cigarettes daily. Nicotine patch ordered per patientrequest. Discussed cessation on discharge. 3. Elevated BP readings ? Hypertensive to the 150s over 100s in the ED. Suspect patient has essential hypertension that hasbeen undiagnosed as he does not follow with doctors regularly. Will initiate amlodipine 5 mg daily for now, though suspect he may need switched to beta-giovanny and/or ALF inhibitor pending cardiac workup as above. Monitor BMP. DVT prophylaxis: Lovenox CODE STATUS: Full code, verified Expected disposition: Home, 1 to 2 days Total clinical time spent by myself addressing the patient's medical issues, reviewing all the data, and collaborating with patient's care team: 75 minutes. Charges/Coding Visit Charges Inpatient E&M: 24575 Init Hosp L3 01/31/251915 Cosigner Signature (if applicable): CC: Dr. Jacky Montelongo, DO; No Primary Care Physician~ Signed [facility]07-31-2025 Discharge summary Author Mundo Lemus [facility] Note Date/Time January 31, 2025 2:24 pm [facility] Medical Records Department [address] [place] [address] Emergency Department Summary 01/31/25 MR#: [id number] Acct: [id number] Name: JANIYA BETANCUR Rep #:[id number] : 1980 44 From: Mundo Hearn ggett DO PCP: Care Physician,No Primary Status :REG [...] pressure. He has a family history of WY with his dad having an WY in his 50s. Tobacco abuser. Denies anyshortness [...] intact Psych: Cooperative, appropriate mood and affect [facility] Medical History (Updated 01/31/25 @ 09:49 [...] % (Auto) 50.4 Lymph % (Auto) 36.5 [place] % (Auto) 9.4 Eos % (Auto) 2.7 [...] evidence of acute cardiopulmonary disease. Reading Location: [place] [address] Discharge Plan Triage Chief Complaint: Chest Pain ED Provider: Mundo Lemus Dx/Rx/DC Orders Prescriptions: No Action NK Primary Care Provider: Care Physician,No Primary Referrals: Care Physician,No Primary [Primary Care Provider] - Print Language: Armenian What to do if you have Problems For any increased pain, shortness of breath, bleeding, nausea or vomiting, chestpain, or any unexpected problems, contact your Primary Care Provider. Call [facility] ([phone]) or report to the closest Emergency Room. Call 911 if necessary. 01/31/25 142 <Electronically signed by Mundo Lemus DO> Cosigner Signature (if applicable): CC: No Primary Care Physician ~ Signed [facility] Work Phone: 1(352) 363-319007-31-2025 Evaluation note* Diagnosis Onset Date Resolution Status Admit Date Chest pain acute January 31 2:16pm [facility] Work Phone: 1(760) 394-469107-31-2025 Evaluation note* Diagnosis Onset Date Resolution Status Admit Date Chest pain acute January 31 2:16pm Non-cardiac chest pain acute 2024 2:16pm Tobacco use acute January 31 2:16pm HTN (hypertension) chronic January 032024 2:16pm [facility] Work Phone: 1(594) 446-957607-31-2025 Discharge summary [facility] Medical Records Department [address] [place] [address] Emergency Department Summary 01/31/25 MR#: [id number] Acct: [id number] Name: JANIYA BETANCUR Rep #:[id number] : 1980 44 From: Mundo ralph DO [...] pressure. He has a family history of W[place] with his dad having an W[place] in his 50s. Tobacco abuser. Denies anyshortness [...] intact Psych: Cooperative, appropriate mood and affect [facility] Medical History (Updated 01/31/25 @ 09:49 [...] less likely CHF. Aspirin ordered for symptoms. C ardiac workup ordered. EKG and chest x-ray reviewed see below. CBC without leukocytosis or anemia. Coagulation panel unremarkable. BMP unremarkable. BNPunremarkable. Troponin x 2 unremarkable. On reevaluation, patient states his chest pain has improved. Patient's heart score is a 4 which places himin the moderate category for ACS. Given his [...] % (Auto) 50.4 Lymph % (Auto) 36.5 [place] % (Auto) 9.4 Eos % (Auto) 2.7 [...] evidence of acute cardiopulmonary disease. Reading Location: [place] [address] Discharge Plan Triage Chief Complaint: Chest Pain ED Provider: Mundo Lemus Dx/Rx/DC Orders Prescriptions: No Action NK Primary Care Provider: Care Physician,No Primary Referrals: Care Physician,No Primary [Primary Care Provider] - Print Language: Armenian What to do if you have Problems For any increased pain, shortness of breath, bleeding, nausea or vomiting, chestpain, or any unexpected problems, contact your Primary Care Provider. Call [facility] ([phone]) or report tothe closest Emergency Room. Call 911 if necessary. 01/31/25 1424 Cosigner Signature (if applicable): CC: No Primary Care Physician ~ Signed [facility]07-31-2025 Radiology Diagnostic study note [facility] Imaging Services [address] [place], [place] [address] Chest PA and Lateral MR#: [id number] Acct: [id number] Name: JANIYA BETANCUR Rep #: [id number] : 1980 M 44 From: Jorge Alberto Curran MD PCP: Care Physician,No Primary Status: REG ER Study:Chest PA and Lateral Date of Exam: 01/31/25 Exam# [id number] Ordering Dr: Mundo Lara DO PROCEDURE: CHEST [...] evidence of acute cardiopulmonary disease. Reading Location: [place] [address] CC: Dr. Mundo Lemus DO; No Primary Care Physician ~ Insurance Verification Clerk: [facility] Maryjane Valenzuela [facility] Note Date/Time February 01, 2025 2:5 0pm [facility] Medical Records Department [address] [place] [address] Instructions for Home/Discharge Instructions 02/01/25 1441 MR#: [id number] Acct: [id number] Name: JANIYA BETANCUR Rep #:[id number] : 1980 44 From: Maryjane Valenzuela MD PCP: Geo Physician,Annie Primary Status :ADM SUNNI Discharge Instructions DC O2, CPAP, BIPAP needs Home O2 Discharge instructions: No Dressing / Incision Discharge Activity: - (Increase activity as tolerated) Follow Up Care Test Results: Test results from this visit will be discussed in further detail at your follow- up appointment, if applicable. Discharge Plan Admission Admit Date/Time: 01/31/25 14:16 Primary Reason for Your Visit: Chest pain Attending Provider: Maryjane Valenzuela Primary Care Provider: Care Physician,No Primary Consulting Providers: Jacky Montelongo Instructions Patient Instructions: Quitting Smoking, Coping with Smoking Withdrawal, ED How to Quit Smoking Additional Instructions / Restrictions: You will be discharged on 5 mg of amlodipine It is recommended that you establish with PCP upon discharge, list will be provided for you so you can establish care Discharge Orders/Prescriptions Prescriptions: New amlodipine 5 mg Tablet 5 mg PO DAILY 30 Days Qty: 30 3RF Referrals / Follow Up: Care Physician,No Primary [Primary Care Provider] - ( -If you do not have a primary care physician of list of local primary care physicians can be provided for you upon discharge. Please ask for this list prior to discharge ) Disposition Disposition (needs filled in before D/C Order can be placed): Home, Self Care 02/01/25 1450<Electronically signed by Maryjane Valenzuela MD>Maryjane Valenzuela MD CC: Dr. Jacky Montelongo, DO; No Primary Care Physician ~ Signed [facility] Work Phone: Evaluation noteNo assessment information available [facility] Work Phone: Hospital Discharge instructionsAdditional Instructions You will be discharged on 5 mg of amlodipine It is recommended that you establish with PCP upon discharge, list will be provided for you so you can establish careWSt. [facility] Work Phone: Hospital Discharge instructionsAdditional Instructions Increase your amlodipine to 10 mg daily.[facility] Work Phone: Reason for referral (narrative)No reason for referral information availableWSt. Charles Hospital Work Phone: Summary Purpose Family History No Family History Records FoundNo Family History Records Found Advance Directives Advance Directive Response Recorded Date/ Time Do you have a Healthcare Power of Nurse'S Assistant? No January 31, 2025 9:50am Advance Directives No October 26 014 1:49am Advance Directive Response Recorded Date/ Time Do you have a Healthcare Power of Nurse'S Assistant? No January 31, 2025 3:59pm Advance Directives No October 26 014 1:49am Advance Directive Response Recorded Date/ Time Do you have a Healthcare Power of Nurse'S Assistant? No February 06, 2025 11:18am Do you have a Healthcare Power of Nurse'S Assistant? No January 31, 2025 3:59pm Advance Directives No October 26 014 1:49am Chief Complaint and Reason for Visit Chief Complaint Admit Date CHEST PAIN January 31, 2025 2:16 pm Reason for Visit Admit Date Chest pain January 31, 2025 2:16 pm Chief Complaint Admit Date CHEST PAIN January 31, 2025 2:16 pm CHEST PAIN February 01, 2025 12: 13pm CHEST PAIN February 01, 2025 2:5 0pm HTN February 06, 2025 10: 47am Reason for Visit Admit Date Chest pain January 31, 2025 2:16 pm Non-cardiac chest pain January 31, 2025 2 :16pm Tobacco use January 31, 2025 2:16 pm HTN (hypertension) January 31, 2025 2:16 pm Additional Source Comments (unrecognized sect ion and content) No Status Records FoundNo Status Records Found INFORMATION SOURCE (unrecogn ized section and content) DATE CREATED AUTHOR 07/24/2019 [facility] DATE CREATED AUTHOR AUTHOR'S ORGANIZ ATION 02/05/2025 [facility] Care Teams (unrecognized sec tion and content) Team Status: Active Member Role/Relationship Status Dates No Primary Care Physician Primary Care Provider Active Team Status: Active Member Role/Relationship Status Dates No Primary Care Physician Primary Care Provider Active Start: January 31, 2025 Dr. Mundo Lemus , DO Emergency Provider Activ e Start: January 31, 2025 Dr. Jacky Montelongo , Admit Provider Active Start: January 31, 2025 Dr. Jacky Montelongo DO Attending Provider Active Start: January 31, 2025 Team Status: Inactive Member Role/Relationship Status Dates No Primary Care Physician Primary Care Provider Active Start: January 31, 2025 End: February 01, 2025 Dr. Mundo Lemus DO Emergency Provider Activ e Start: January 31, 2025 End: February 01, 2025 Dr. Jacky Montelongo , DO Admit Provider Active Start: January 31, 2025 End: February 01, 2025 Dr. Jacky Montelongo , DO Other Provider Active Start: January 31, 2025 End: February 01, 2025 Dr. Maryjane Valenzuela MD Attending Provider Active Start: January 31, 2025 End: February 01, 2025 Team Status: Active Member Role/Relationship Status Dates No Primary Care Physician Primary Care Provider Active Start: February 01, 2025 Dr. Mundo Lemus DO Emergency Provider Activ e Start: February 01, 2025 Dr. Jacky Montelongo DO Admit Provider Active Start: February 01, 2025 Dr. Jacky Montelongo , DO Other Provider Active Start: February 01, 2025 Dr. Maryjane Valenzuela MD Other Provider Active Star t: February 01, 2025 Dr. Giovani Fong MD Attending Provider Active S tart: February 01, 2025 Team Status: Active Member Role/Relationship Status Dates No Primary Care Physician Primary Care Provider Active Start: February 01, 2025 Dr. Mundo Lemus DO Emergency Provider Activ e Start: February 01, 2025 Dr. Jacky Montelongo , Admit Provider Active Start: February 01, 2025 Dr. Jacky Montelongo , DO Other Provider Active Start: February 01, 2025 Dr. Maryjane Valenzuela MD Attending Provider Active Start: February 01, 2025 Dr. Maryjane Valenzuela MD Other Provider Active Star t: February 01, 2025 Team Status: Inactive Member Role/Relationship Status Dates No Primary Care Physician Primary Care Provider Active Start: February 06, 2025 End: February 06, 2025 Dr. Edin Mackay , Emergency Provider Active Start: February 06, 2025 End: February 06, 2025 Goals (unrecognized section and content) Goals [...] BE BASED ON THE PRIMARY CLINICAL RECORDS. [facility]. provides no warranty or guarantee of the accuracy or completeness of information in this document.
== END 2025-02-06 14:50 | disposition home or self-care (01) ==
PROVIDERS: Emergency Provider Emergency Medicine; Visit Provider Emergency Medicine
DX: I10 Essential (primary) hypertension (principal); Z79.899 Other long term (current) drug therapy
CPT/HCPCS: 71046; 80048; 85025; 93005; 99284; A4216